=== PATIENT | male | born 1940 | race Caucasian/White ===

== ENCOUNTER 2021-01-13 07:41 | Inpatient (IN) | payer MEDICARE, SELFPAY ==
[2021-01-13] VITALS (10 sets, daily range): BP systolic 124–146; BP diastolic 59–84; PULSE 66–123; RESP 16–20; TEMP 35.5–37.4; O2SAT 94–98; BMI 30.6
--- NOTE | 2021-01-13 | ECG_ITS ---
Test Reason : RHYTHM CHECK Blood Pressure : / mmHG Vent. Rate : 072 BPM Atrial Rate : 072 BPM P-R Int : 138 ms QRS Dur : 084 ms QT Int : 408 ms P-R-T Axes : 001 019 056 degrees QTc Int : 446 ms Normal sinus rhythm Nonspecific T wave abnormality Low voltage QRS Abnormal ECG When compared with ECG of 13-JAN-2021 08:06, Sinus rhythm has replaced Atrial fibrillation Vent. rate has decreased BY 43 BPM Nonspecific T wave abnormality no longer evident in Inferior leads Referred By: Jose Villarreal Electronically Signed By:ROBY SILVA MD
--- NOTE | ~2021-01-13 | XR_ITS ---
EXAMINATION: XR CHEST CLINICAL INFORMATION: Chest pain COMPARISON: Previous chest x-ray January 2011 TECHNIQUE: Frontal view of the chest was obtained. FINDINGS: The cardiac and mediastinal contours are stable. The lung volumes are low. There is crowding of the central vascular markings likely related to low lung volumes. The lungs are otherwise clear. There is no pleural effusion or pneumothorax. Bony structures are unremarkable. XR/XR chest 1V IMPRESSION: Unremarkable examination.
--- NOTE | 2021-01-13 07:57 | ECG_ITS ---
Test Reason : AFIB Blood Pressure : / mmHG Vent. Rate : 115 BPM Atrial Rate : 000 BPM P-R Int : 000 ms QRS Dur : 092 ms QT Int : 344 ms P-R-T Axes : 000 010 012 degrees QTc Int : 475 ms Poor data quality, interpretation may be adversely affected Atrial fibrillation with rapid ventricular response Nonspecific ST abnormality Low voltage QRS Nonspecific T wave abnormality Inferior leads Abnormal ECG When compared with ECG of 15-FEB-2011 11:42, Atrial fibrillation has replaced Sinus rhythm Vent. rate has increased BY 43 BPM Nonspecific T wave abnormality now evident in Inferior leads Nonspecific T wave abnormality now evident in Anterior leads Referred By: Kiko Cheung Electronically Signed By:ROBY SILVA MD
--- NOTE | 2021-01-13 07:59 | ED_ITS ---
HPI - SOB/Dyspnea General Chief Complaint: Dyspnea Stated Complaint: diff breathing Time Seen by Provider: 01/13/21 07:51 Source: patient Mode of arrival: ambulatory Limitations: no limitations History of Present Illness HPI Narrative: This is a very pleasant 80 years old male presented to the emergency department with a chief complaint of shortness of breath on exertion. He states that he has been feeling short of breath for about 2 days especially when exerting inserted. The the patient has history of high blood pressure GERD is here with the daughter. In the emergency room he was found to be in rapid atrial fibrillation MD elicited complaint: shortness of breath Onset (ago): day(s) (2) Timing: constant Severity: moderate Exacerbating factors: exertion Relieving factors: nothing Associated symptoms: denies other symptoms Related Data Home oxygen amount: none Allergies Allergy/AdvReac Type Severity Reaction Status Date / Time No Known Allergies Allergy Unknown Verified 01/13/21 07:42 Review of Systems Review of Systems: On the review of system and there is no other systemic symptoms there is no fever no headache, he does have some diarrhea times 24 ho urs and shortness of breath on exertion Cardiovascular: Cardiovascular: Reports no additional cardiovascular complaints PMFSH Past Medical History Medical History COPD (chronic obstructive pulmonary disease) GERD (gastroesophageal reflux disease) HTN (hypertension) No known health problems Social History Social History Advance Directives: No Physical Exam Vital Signs: Vital Signs: Last Vital Signs Temp 99.4 F 01/13/21 08:33 Pulse 97 01/13/21 08:44 Resp 20 01/13/21 08:44 BP 146/77 H 01/13/21 08:44 Pulse Ox 94 01/13/21 08:44 Body Mass Index 30.6 Const: General: cooperative and comfortable HENMT: Head: Yes normal to inspection Face and sinus: Yes normal facial exam Mouth: Normal oral and palatal mucosa present Neck: Neck: Yes normal visual inspection and Yes full ROM Chest: Chest palpation & inspection: normal inspection of the chest Resp: Effort & Inspection: normal respiratory effort Auscultation: clear to auscultation bilaterally Cardio: Jugular venous distension: no JVD Rate: tachycardic Rhythm: abnormal rhythm GI: Inspection: Yes normal to inspection Palpation (GI): Soft to palpation, not firm and nontender Auscultation: normal bowel sounds Course Reevaluation(s) Reevaluation #1: Patient is feeling much better, he is on a Cardizem drip his rate is down to 100, the case was discussed with the admitting hospitalist Dr. Villarreal he accepts the patient MDM - SOB/Dyspnea Lab Data Result diagrams: 01/13/21 08:08 01/13/21 08:08 Labs: Lab Results 01/13/21 01/13/21 01/13/21 Range/Units 08:08 08:08 08:08 WBC 4.8 (4.8-10.8) X10*3/uL RBC 4.58 L (4.60-5.80) X10*6/uL Hgb 13.0 L (14.0-18.0) g/dl Hct 40.5 L (42.0-52.0) % MCV 88.4 (80.0-98.0) fL MCH 28.4 (27.0-33.0) pg MCHC 32.1 (31.0-36.0) g/dl RDW 12.8 (11.0-16.0) % Plt Count 209 (160-400) X10*3/uL MPV 11.5 (9.4-12.4) fL Immature Gran % (Auto) 0.2 (0.0-0.4) % Neut % (Auto) 67.0 (45-73) % Lymph % (Auto) 18.5 L (20-40) % [place] % (Auto) 12.0 H (2-11) % Eos % (Auto) 1.9 (0-4) % Baso % (Auto) 0.4 (0-2) % Lymph # (Auto) 0.9 L (1.2-4.9) X10*3/uL [place] # (Auto) 0.6 (0.1-1.2) X10*3/uL Eos # (Auto) 0.1 (0.0-0.4) X10*3/uL Baso # (Auto) 0.0 (0.0-0.2) X10*3/uL Abs Immat Gran (auto) 0.01 (0.00-0.03) X10*3/uL Absolute Neuts (auto) 3.2 (2.0-8.3) x10*3/uL Absolute Nucleated RBC 0.000 (0.0-0.012) X10*3/uL Nucleated RBC % (auto) 0.0 (0.0-0.2) /100WBC PT 11.6 (9.9-13.0) SEC INR 1.0 (0.9-1.1) Sodium 137 (135-145) mmol/L Potassium 4.1 (3.3-5.1) mmol/L Chloride 106 (96-108) mmol/L Carbon Dioxide 20 L (22-29) mmol/L Anion Gap 15 (12-20) BUN 18 H (9-16) mg/dL Creatinine 0.86 (0.5-1.4) mg/dL Estim Creat Clear Calc 68.6 Estimated GFR > 60 Random Glucose 151 H (60-115) mg/dL Calcium 8.5 (8.4-10.2) mg/dL Total Bilirubin 0.3 (0.0-1.0) mg/dL AST 22 (5-37) U/L ALT 17 (0-40) U/L Alkaline Phosphatase 65 (39-117) U/L Troponin I High Sens (<3.5-35.0) ng/L B-Natriuretic Peptide (<100) pg/mL Total Protein 6.7 (6.5-8.0) g/dL Albumin 4.0 (3.5-5.0) g/dL 01/13/21 Range/Units 08:08 WBC (4.8-10.8) X10*3/uL RBC (4.60-5.80) X10*6/uL Hgb (14.0-18.0) g/dl Hct (42.0-52.0) % MCV (80.0-98.0) fL MCH (27.0-33.0) pg MCHC (31.0-36.0) g/dl RDW (11.0-16.0) % Plt Count (160-400) X10*3/uL MPV (9.4-12.4) fL Immature Gran % (Auto) (0.0-0.4) % Neut % (Auto) (45-73) % Lymph % (Auto) (20-40) % [place] % (Auto) (2-11) % Eos % (Auto) (0-4) % Baso % (Auto) (0-2) % Lymph # (Auto) (1.2-4.9) X10*3/uL [place] # (Auto) (0.1-1.2) X10*3/uL Eos # (Auto) (0.0-0.4) X10*3/uL Baso # (Auto) (0.0-0.2) X10*3/uL Abs Immat Gran (auto) (0.00-0.03) X10*3/uL Absolute Neuts (auto) (2.0-8.3) x10*3/uL Absolute Nucleated RBC (0.0-0.012) X10*3/uL Nucleated RBC % (auto) (0.0-0.2) /100WBC PT (9.9-13.0) SEC INR (0.9-1.1) Sodium (135-145) mmol/L Potassium (3.3-5.1) mmol/L Chloride (96-108) mmol/L Carbon Dioxide (22-29) mmol/L Anion Gap (12-20) BUN (9-16) mg/dL Creatinine (0.5-1.4) mg/dL Estim Creat Clear Calc Estimated GFR Random Glucose (60-115) mg/dL Calcium (8.4-10.2) mg/dL Total Bilirubin (0.0-1.0) mg/dL AST (5-37) U/L ALT (0-40) U/L Alkaline Phosphatase (39-117) U/L Troponin I High Sens 5.9 (<3.5-35.0) ng/L B-Natriuretic Peptide 190 H (<100) pg/mL Total Protein (6.5-8.0) g/dL Albumin (3.5-5.0) g/dL ECG Data Attestation: I personally reviewed and interpreted this ECG as follows: ECG interpretation date: 01/13/21 ECG interpretation time: 08:08 Attending Attestation Rapid a.fib 115 no ischemia Critical Care Time Critical Care Time Critical Care Time: Yes Total Critical Care Time: 30 Attestation: IV cardizem and titration Discharge Plan Discharge Clinical Impression: Atrial fibrillation with RVR Patient Disposition: Admitted As Inpatient
[2021-01-13] MEDS: dilTIAZem HCL 50 MG/10 ML VIAL 10 MG IVPUSH (08:10)
[2021-01-13 08:17] LABS: MANUAL DIFF FLAG NO
[2021-01-13] MEDS: dilTIAZem HCL 125 MG in 0.9 % Sodium Chloride 100 ML 10 MG IVCONT (08:22)
[2021-01-13 08:23] LABS: Basophils Percent Auto 0.4 % (0-2); Eosinophils Absolute Auto 0.1 X10*3/uL (0.0-0.4); Eosinophils Percent Auto 1.9 % (0-4); Hematocrit 40.5 % (42.0-52.0); Imm Gran Abs Auto 0.01 X10*3/uL (0.00-0.03); Imm Gran Pct Auto 0.2 % (0.0-0.4); Lymphocytes Absolute Auto 0.9 X10*3/uL (1.2-4.9); Lymphocytes Percent Auto 18.5 % (20-40); Mean Corpuscular HGB Conc 32.1 g/dl (31.0-36.0); Mean Corpuscular Hemoglobin 28.4 pg (27.0-33.0); Mean Corpuscular Volume 88.4 fL (80.0-98.0); Mean Platelet Volume 11.5 fL (9.4-12.4); Monocytes Absolute Auto 0.6 X10*3/uL (0.1-1.2); Neutrophils Absolute Auto 3.2 x10*3/uL (2.0-8.3); Platelet Count 209 X10*3/uL (160-400); Red Blood Count 4.58 X10*6/uL (4.60-5.80); Red Cell Distribution Width 12.8 % (11.0-16.0); White Blood Count 4.8 X10*3/uL (4.8-10.8)
[2021-01-13 08:25] LABS: Prothrombin Time 11.6 SEC (9.9-13.0)
[2021-01-13 08:34] LABS: Alanine Aminotransferase 17 U/L (0-40); Alkaline Phosphatase 65 U/L (39-117); Anion Gap 15 (12-20); Aspartate Amino Transferase 22 U/L (5-37); Bilirubin Total 0.3 mg/dL (0.0-1.0); Blood Urea Nitrogen 18 mg/dL (9-16); Calcium 8.5 mg/dL (8.4-10.2); Carbon Dioxide 20 mmol/L (22-29); Chloride 106 mmol/L (96-108); Creatinine Clr Calc Pharmacy 68.6; Estimated Glomerular Filt Rate > 60; Glucose Random 151 mg/dL (60-115); Potassium 4.1 mmol/L (3.3-5.1); Sodium 137 mmol/L (135-145); Total Protein 6.7 g/dL (6.5-8.0)
[2021-01-13 08:38] LABS: B Type Natriuretic Peptide 190 pg/mL (<100); Troponin-I High Sensitivity 5.9 ng/L (<3.5-35.0)
--- NOTE | 2021-01-13 08:45 | PC.NURSE ---
pt c/o sob x2 days mostly with exertion. pt has history of hypertension. In the ed pt noted to be in rapid A-Fib, HR between 120s - 130s. pt denies chest pain, he reports mild sob. no headache/dizziness. pt given Cardizem bolus and started on Cardizem drip. Cardiazem infusion titrated per protocol, HR mid- high 90s, current infusion rate 5mg/hr. as documented. pt tolerating well, resting quietly, no apparent distress noted. pt's daughter at bedside.
--- NOTE | 2021-01-13 10:18 | PM.IMHP ---
History of Present Illness Date of Service: 01/13/21 Chief Complaint: shortness of breath The following history is obtained with the help of the patients grandson who is bedside. all around presser was offered, but patient opted for grandson to translate. This is an 80 Kosovan speaking male , who is relatively healthy (PMH significant for GERD, HTN) who presents to the hospital with complaints of progressive shortness of breath which began 2 days prior to arrival. He reports that 2 days ago, his symptoms began all of a sudden and did not subside and so at the urging of his family he presented to the ED. He denies any chest pain or palpitations. He reports feeling short of breath both at rest and more so with exertion. He denies any orthopnea, PND or LE edema. He denies any prior known history of CAD / CHF / A. Fib. He denies any cough, fevers or chills. Upon arrival to the ED, he was noted to tachycardic with EKG showing A. Fib with RVR. He was given a dose of IV cardizem 10mg without much improvement and subsequently started on IV cardizem drip. He has been given a dose of Eliquis (CHADSVASC score of at least 3 (Age + HTN history). Initially, the patient was reluctant to be admitted (due to his Spouse being sick) but at the urging of his grandson, he has agreed for now. Review of Systems Review of Systems: negative except for HPI [facility] Medical History (Updated 01/13/21 @ 09:56 by Kiko Cheung MD) COPD (chronic obstructive pulmonary disease) GERD (gastroesophageal reflux disease) HTN (hypertension) No known health problems Pertinent family history: Denies any significant family history Surgical History (Updated 01/13/21 @ 10:31 by Jose Villarreal MD) No pertinent past surgical history Social History (Updated 01/13/21 @ 10:32 by Jose Villarreal MD) Patient Tobacco Use Status: Former Tobacco user Use of substances other than those prescribed or required for medical reasons: No Advance Directives: No Meds Allergies Allergy/AdvReac Type Severity Reaction Status Date / Time No Known Allergies Allergy Unknown Verified 01/13/21 07:42 Active Medications: Current Medications Acetaminophen (Acetaminophen 325 Mg Tablet) 650 mg PO Q6H PRN PRN Reason: Pain, Mild (Pain Scale 1-3) Apixaban (Apixaban 5 Mg Tablet) 5 mg PO BID [facility] Diltiazem HCl 125 mg/ Sodium (Chloride) 125 mls @ 0 mls/hr IVCONT .Q0M [facility]; Protocol Last Titration: 01/13/21 08:37 Dose: 5 mg/hr, 5 mls/hr Documented by: Pharmacy Consult (Consult Rx Perform Med Rec) 1 each MISCELLANE ONCE PRN PRN Reason: Consult order Sodium Chloride (0.9 % Sodium Chloride Flush 3 Ml Syringe) 3 ml IVFLUSH QSHIFT [facility] Home Medications Medication Instructions Recorded Confirmed Last Taken Type albuterol sulfate 90 mcg/actuation 1 puff INHALATION QID PRN 01/13/21 01/13/21 Unknown History aerosol inhaler losartan 50 mg tablet 1 tab PO DAILY 01/13/21 01/13/21 Unknown History omeprazole 20 mg capsule,delayed 1 cap PO DAILY 01/13/21 01/13/21 Unknown History release Physical Exam Vital Signs and Narrative: Vital Signs: Last Vital Signs Temp 99.4 F 01/13/21 08:33 Pulse 97 01/13/21 08:44 Resp 20 01/13/21 08:44 BP 146/77 H 01/13/21 08:44 Pulse Ox 94 01/13/21 08:44 Body Mass Index 30.6 Const: Other: Constitutional - Awake and Alert, No apparent distress Eyes - PERRLA, EOMI Cardiovascular - IRR, no b/l edema Respiratory - Normal lung expansion, Normal respiratory effort, No respiratory distress, Dimished bilaterally Gastrointestinal - NT / ND; +BS; No rebound or guarding - No CVA tenderness Extremities - no calf tenderness bilaterally, no swelling Musculoskeletal - Normal inspection, normal ROM Skin - Warm/Dry Neurological - Alert & oriented x3, No focal deficit Psychological - Appropriate affect Results Labs CBC and Chem 7: 01/13/21 08:08 01/13/21 08:08 Labs: Laboratory Results - last 24 hr 01/13/21 01/13/21 01/13/21 08:08 08:08 08:08 MCV 88.4 MCH 28.4 MCHC 32.1 RDW 12.8 Plt Count 209 MPV 11.5 Immature Gran % (Auto) 0.2 Neut % (Auto) 67.0 Lymph % (Auto) 18.5 L [place] % (Auto) 12.0 H Eos % (Auto) 1.9 Baso % (Auto) 0.4 Lymph # (Auto) 0.9 L [place] # (Auto) 0.6 Eos # (Auto) 0.1 Baso # (Auto) 0.0 Abs Immat Gran (auto) 0.01 Absolute Neuts (auto) 3.2 Absolute Nucleated RBC 0.000 Nucleated RBC % (auto) 0.0 PT 11.6 INR 1.0 Anion Gap 15 Estim Creat Clear Calc 68.6 Estimated GFR > 60 Random Glucose 151 H Calcium 8.5 Total Bilirubin 0.3 AST 22 ALT 17 Alkaline Phosphatase 65 Troponin I High Sens B-Natriuretic Peptide Total Protein 6.7 Albumin 4.0 01/13/21 08:08 MCV MCH MCHC RDW Plt Count MPV Immature Gran % (Auto) Neut % (Auto) Lymph % (Auto) [place] % (Auto) Eos % (Auto) Baso % (Auto) Lymph # (Auto) [place] # (Auto) Eos # (Auto) Baso # (Auto) Abs Immat Gran (auto) Absolute Neuts (auto) Absolute Nucleated RBC Nucleated RBC % (auto) PT INR Anion Gap Estim Creat Clear Calc Estimated GFR Random Glucose Calcium Total Bilirubin AST ALT Alkaline Phosphatase Troponin I High Sens 5.9 B-Natriuretic Peptide 190 H Total Protein Albumin ECG Attestation: I personally reviewed and interpreted this ECG as follows: (A. Fib with RVR @ 115) ECG interpretation date: 01/13/21 ECG interpretation time: 10:33 Imaging Radiologist's Impressions: Impressions Chest X-Ray 01/13/21 07:57 IMPRESSION: Unremarkable examination. Assessment and Plan (1) Atrial fibrillation with RVR: Status: Acute This is an 80 yo M with a PMH of GERD, HTN who presents to the hospital with complaints of shortness of breath of 2 days duration. He is found to be in A. Fib with RVR requiring IV cardizem drip. He will be admitted for further work up. 1. A. Fib with RVR, new-onset HR in the 100-110s on cardizem drip; will continue for now. Target rate below 90s and start oral rate control drugs at that time. Eliquis 5mg BID -- Chadsvasc score of 3; denies any history of GI bleeding 2d echo and cardiology consult 2. Shortness of breath likely due to above clinically not in CHF 3. HTN med rec pending, but will hold baseline meds for the time being while on cardizem gtt 4. GERD PPI Full Code DVT pptx, Gwen Patel (daughter) is endorses at HCP Quality Stroke Does the patient have a stroke diagnosis?: No VTE Prior VTE?: No VTE Risk Level:: Medical - moderate - high VTE Device Contraindication: Treatment Not Indicated VTE Drug Contraindication: N/A - Med Ordered
[2021-01-13] MEDS: Apixaban 5 MG TABLET PO ×2 (10:51→20:32)
[2021-01-13 11:45] LABS: COVID-19 Test Positive (Negative)
--- NOTE | 2021-01-13 12:00 | PC.NURSE ---
pt resulted positive for SARANYA, Dr. Cheung and Dr. Villarreal aware. pt awaiting bed assignment. pt and daughter aware of positive result.
--- NOTE | 2021-01-13 13:21 | PC.NURSE ---
called to give report, awaiting receiving nurse to call back. pt alert and oriented, denies headache/dizziness. reports slight sob. pt and daughter aware of room assignment.
--- NOTE | 2021-01-13 14:21 | PHA.MEDREC ---
Pharmacy Consult ? Medication Reconciliation Pharmacy has completed the medication reconciliation. Spoke with family member and pt.
[2021-01-13] MEDS: 0.9 % Sodium Chloride Flush 3 ML SYRINGE IVFLUSH ×2 (16:06→20:32)
[2021-01-13] MEDS: Metoprolol Tartrate 25 MG TABLET PO (20:31)
[2021-01-14 04:00] VITALS: BP 134/62; PULSE 67; RESP 16; TEMP 37.4; O2SAT 91
[2021-01-14 07:32] VITALS: BP 140/77; PULSE 75; RESP 20; TEMP 36.3; O2SAT 93
--- NOTE | 2021-01-14 08:27 | MHC.CM.PN ---
Patient is Covid (+);CM spoke with Daughter/HCP/Leighann @ [phone].Patient lives in an elderly apartment with his and he had no services nor DME [employer].Patient's goal is to return home, no services and CM has initiated and will follow for dc planning.PCP is out of [facility] in [place].
[2021-01-14 09:54] VITALS: BP 140/77; PULSE 75
[2021-01-14] MEDS: Apixaban 5 MG TABLET PO (09:54)
[2021-01-14] MEDS: 0.9 % Sodium Chloride Flush 3 ML SYRINGE IVFLUSH (09:54)
[2021-01-14] MEDS: Metoprolol Tartrate 25 MG TABLET PO (09:54)
[2021-01-14] MEDS: Omeprazole 20 MG CAPSULE.DR PO (09:54)
[2021-01-14 11:03] VITALS: BP 126/56; PULSE 66; RESP 20; TEMP 36.5; O2SAT 96
--- NOTE | 2021-01-14 11:07 | P.PNIM_ITS ---
Subjective Subjective Date of Service: 01/14/21 Interval History: seen and examined this Am with chip unloader services patient reports no complaints and is looking forward to discharge he denies any cough or shortness of breath he denies any palpitations or chest pain he denies any fevers he has been ambulated in the room by the RN team and he denied any sob. post- ambulation O2 >95% Review of Systems negative except interval history Physical Exam Vital Signs: Vital Signs: Last Vital Signs Temp 97.7 F 01/14/21 11:03 Pulse 66 01/14/21 11:03 Resp 20 01/14/21 11:03 BP 126/56 L 01/14/21 11:03 Pulse Ox 96 01/14/21 11:03 Body Mass Index 30.6 Const: Other: General - no acute distress, appears comfortable Cardiovascular - regular rate and rhythm, S1-S2 Lungs - normal respiratory effort, clear to auscultation bilaterally, no wheezing Abdomen - soft, nontender, no rebound or guarding Extremities - no edema bilaterally Neuro - awake and alert, no focal deficits Objective Data Active Medications Acetaminophen (Acetaminophen 325 Mg Tablet) 650 mg PO Q6H PRN PRN Reason: Pain, Mild (Pain Scale 1-3) Albuterol Sulfate (Albuterol Sulfate 90 Mcg 8 Gm Inhaler) 1 puff INHALE QID PRN PRN Reason: wheezing Apixaban (Apixaban 5 Mg Tablet) 5 mg PO BID [facility] Last Admin: 01/14/21 09:54 Dose: 5 mg Documented by: NICHOLE Metoprolol Tartrate (Metoprolol Tartrate 25 Mg Tablet) 25 mg PO BID [facility]; Protocol Last Admin: 01/14/21 09:54 Dose: 25 mg Documented by: NICHOLE Omeprazole (Omeprazole 20 Mg Capsule.) 20 mg PO DAILY [facility] Last Admin: 01/14/21 09:54 Dose: 20 mg Documented by: NICHOLE Pharmacy Consult (Consult Rx Perform Med Rec) 1 each MISCELLANE ONCE PRN PRN Reason: Consult order Sodium Chloride (0.9 % Sodium Chloride Flush 3 Ml Syringe) 3 ml IVFLUSH QSHIFT [facility] Last Admin: 01/14/21 09:54 Dose: 3 ml Documented by: NICHOLE Labs CBC & Chem 7: 01/13/21 08:08 11/15/21 08:08 Labs: Laboratory Results - last 24 hr 01/13/21 01/13/21 11:02 11:20 SARS-CoV-2 (PCR) Cancelled COVID-19 (ANAHY) Positive A COVID-19 Clin Com See Note Assessment and Plan (1) Atrial fibrillation with RVR: Status: Acute Assessment and Plan: This is an? 80 yo M with a PMH of GERD, HTN who presents to the hospital with complaints of shortness of breath of 2 days duration. He is found to be in A. Fib with RVR requiring IV cardizem drip. He will be admitted for further work up. 1. PAF with RVR In sinus > 12 hours Continue metoprolol and eliquis await cardiology input 2. COVID+ asymptomatic no hypoxia, no findings on cxr 3. HTN on losartan at home, will hold and change to metoprolol for a. fib 4. GERD PPI DNI DVT pptx Eliquis Updated daughter Leighann Possible d/c home later this afternoon pending cardiology evaluation Quality Stroke Does the patient have a stroke diagnosis?: No VTE Prior VTE?: No VTE Risk Level:: Medical - moderate - high VTE Device Contraindication: Treatment Not Indicated VTE Drug Contraindication: N/A - Med Ordered
[2021-01-14] MEDS: Albuterol Sulfate 90 MCG 8 GM INHALER 1 PUFF INHALE (11:36)
--- NOTE | 2021-01-14 14:19 | P.CONCA_ITS ---
History of Present Illness History of Present Illness Date of Service: 01/14/21 Requesting physician: Jose Villarreal Chief complaint: Shortness of Breath, PAF Narrative: 80-year-old gentleman with COVID infection and new onset atrial fibrillation. It appears he received the vaccine and came in after that because of shortness of breath. He had positive COVID-19 testing. He was also noticed to have tachycardia and ECG showed atrial fibrillation. This was self-limiting and has improved since then. Denying any palpitations. Denying any chest discomfort shortness of breath. Clinically stable and is feeling much better. He was started on Eliquis by the medicine team. [facility] Past Medical History Medical History (Updated 01/13/21 @ 09:56 by Kiko Cheung MD) COPD (chronic obstructive pulmonary disease) GERD (gastroesophageal reflux disease) HTN (hypertension) No known health problems Surgical History Surgical History (Updated 01/13/21 @ 10:31 by Jose Villarreal MD) No pertinent past surgical history Social History Social History (Updated 01/13/21 @ 10:32 by Jose Villarreal MD) Household Members: Spouse Housing: Apartment Do you presently have visiting nurse or other home services: No Patient Tobacco Use Status: Former Tobacco user service: No Current occupational status: retired [employer] Allergies Allergy/AdvReac Type Severity Reaction Status Date / Time No Known Allergies Allergy Unknown Verified 01/13/21 07:42 Active Medications: Current Medications Acetaminophen (Acetaminophen 325 Mg Tablet) 650 mg PO Q6H PRN PRN Reason: Pain, Mild (Pain Scale 1-3) Albuterol Sulfate (Albuterol Sulfate 90 Mcg 8 Gm Inhaler) 1 puff INHALE QID PRN PRN Reason: wheezing Last Admin: 01/14/21 11:36 Dose: 1 puff Documented by: Apixaban (Apixaban 5 Mg Tablet) 5 mg PO BID [facility] Last Admin: 01/14/21 09:54 Dose: 5 mg Documented by: Metoprolol Tartrate (Metoprolol Tartrate 25 Mg Tablet) 25 mg PO BID [facility]; Protocol Last Admin: 01/14/21 09:54 Dose: 25 mg Documented by: Omeprazole (Omeprazole 20 Mg Capsule.) 20 mg PO DAILY [facility] Last Admin: 01/14/21 09:54 Dose: 20 mg Documented by: Pharmacy Consult (Consult Rx Perform Med Rec) 1 each MISCELLANE ONCE PRN PRN Reason: Consult order Sodium Chloride (0.9 % Sodium Chloride Flush 3 Ml Syringe) 3 ml IVFLUSH QSHIFT [facility] Last Admin: 01/14/21 09:54 Dose: 3 ml Documented by: Home Medications Medication Instructions Recorded Confirmed Last Taken Type acetaminophen 650 mg 2 tab PO BID PRN 01/13/21 01/13/21 Unknown History tablet,extended release ([facility] Arthritis Pain) albuterol sulfate 90 mcg/actuation 1 puff INHALATION QID PRN 01/13/21 01/13/21 Unknown History aerosol inhaler fluticasone 500 mcg-salmeterol 50 1 puff INHALATION BEDTIME 01/13/21 01/13/21 Unknown History mcg/dose blistr powdr for inhalation ([facility] Inhub) omeprazole 20 mg capsule,delayed 20 mg PO DAILY 01/13/21 01/13/21 Unknown History release Physical Exam Vital Signs: Vital Signs: Last Vital Signs Temp 97.7 F 01/14/21 11:03 Pulse 66 01/14/21 11:03 Resp 20 01/14/21 11:03 BP 126/56 L 01/14/21 11:03 Pulse Ox 96 01/14/21 11:03 Body Mass Index 30.6 GENERAL APPEARANCE: in no acute distress, pleasant. NECK: no carotid bruit, no jugular venous distention. SKIN: no suspicious lesions, warm and dry. HEART: no murmurs, regular rate and rhythm. LUNGS: clear to auscultation bilaterally. ABDOMEN: soft, nontender. EXTREMITIES: no edema. PERIPHERAL PULSES: equal. NEUROLOGIC: No gross deficits, AAO X 3 Objective Labs and Meds Result diagrams: 01/13/21 08:08 01/13/21 08:08 Assessment and Plan (1) Atrial fibrillation with RVR: Status: Acute 80-year-old gentleman who is presenting for COVID-19 infection and paroxysmal atrial fibrillation. He is back in sinus rhythm. Clinically stable and not in heart failure. Agree with anticoagulation. Agree with beta-tadeo. He can see us in followup as outpatient. Thank you for allowing me to participate in the care of your patient. Please feel free to contact me if you have any questions. Procedures Date of Service Date of Service: 01/14/21
--- NOTE | 2021-01-14 14:35 | PM.DS ---
DS: Providers Provider Date of Service: 01/14/21 Date of admission: 01/13/21 10:08 Primary care physician: Unknown Physician Consults: 01/13/21 10:16 Consult to Cardiology Routine Consulting Provider: Corby Mina Reason for consultation: new onset a. fib with rvr DS: Diagnosis Discharge Diagnosis (1) Atrial fibrillation with RVR: Status: Acute DS: Summary Hospital Course Hospital Course: HPI: The following history is obtained with the help of the patients grandson who is bedside. lap polisher was offered, but patient opted for grandson to translate. This is an 80 Georgian speaking male? , who is relatively healthy (PMH significant for GERD, HTN) who presents to the hospital with complaints of progressive shortness of breath which began 2 days prior to arrival. He reports that 2 days ago, his symptoms began all of a sudden and did not subside and so at the urging of his family he presented to the ED. He denies any chest pain or palpitations. He reports feeling short of breath both at rest and more so with exertion. He denies any orthopnea, PND or LE edema. He denies any prior known history of CAD / CHF / A. Fib. He denies any cough, fevers or chills. Upon arrival to the ED, he was noted to tachycardic with EKG showing A. Fib with RVR. He was given a dose of IV cardizem 10mg without much improvement and subsequently started on IV cardizem drip. He has been given a dose of Eliquis (CHADSVASC score of at least 3 (Age + HTN history). Initially, the patient was reluctant to be admitted (due to his Spouse being sick) but at the urging of his grandson, he has agreed for now. Addendum: Patient's COVID test returned positive. Patient seen again in the ED. His daughter Leighann (HCP) is bedside. She reports that he has been vaccinated and received his booster about 1 weeks ago. No sick contacts in the last week, but reports that the patients grand kids did have COVID about 1 month ago. Patient and patient daughter request that she be allowed to stay in his room once he is upstairs. I have informed them Hospital policy does not allow visitors for COVID positive patient. Initially, the patient wanted to sign out against medical advice. But after being convinced by the daughter he has decided to stay. He has been informed on the risks of leaving against medical advice, which include but are not limited to worsening of his A. Fib RVR, cardiac arrest / COVID, respiratory arrest and possibly even . Furthermore, the daughter reports that she does not want her father intubated. Changed code status to DNI. In regards to his COVID -- the patient does not have any CXR findings of pneumonia nor is he hypoxic. Will hold off on starting decadron. If his saturations worsen, will start decadron and consult infectious disease. Hospital Course: Patient was started on IV cardizem drip and Eliquis 5mg BID. He converted to NSR and was subsequently transitioned to oral metorpolol 25mg BID (his Losartan will be discontinued for the time being). He was evaluated by cardiology who was in agreement with the current treatment plans. He was observed on the cardiac rehabilitation program director overnight and remained in NSR at the time of discharge. He will have further outpatient f/u with the cardiology clinic. In regards to his COVID test being positive -- this was in incedental finding. He did not have any symptoms such as fevers, cough, hypoxia or CXR findings suggestive of COVID. He was ambulated during his stay and did have any any hypoxia during and post ambulation. He (along with his daughter, Leighann who is his healthcare proxy) has been informed on self-isolation as well as alarm symptoms for COVID. Leighann reports they have a pulse ox at home and they have been instructed to return to the ED if he has persistent O2 sats below 90 or any respiratory decompensation. Time Spent with Patient Time attestation: Total time spent providing and/or coordinating discharge services: Discharge coordination time: Greater than 30 minutes Quality: Stroke Does the patient have a stroke diagnosis?: No Physical Exam Vital Signs: Vital Signs: Last Vital Signs Temp 97.7 F 01/14/21 11:03 Pulse 66 01/14/21 11:03 Resp 20 01/14/21 11:03 BP 126/56 L 01/14/21 11:03 Pulse Ox 96 01/14/21 11:03 Body Mass Index 30.6 Const: Other: General - no acute distress, appears comfortable Cardiovascular - regular rate and rhythm, S1-S2 Lungs - normal respiratory effort, clear to auscultation bilaterally, no wheezing Abdomen - soft, nontender, no rebound or guarding Extremities - no edema bilaterally Neuro - awake and alert, no focal deficits Discharge Plan Discharge Patient Disposition: Home, Self-Care Discharge Diagnosis: PAF COVID 19 Referrals: Physician,Unknown J [Primary Care Provider] - 1 Week Discharge Medications: New Eliquis 5 mg tablet 5 mg PO BID Qty: 60 RF: 0 metoprolol tartrate 25 mg tablet 25 mg PO BID Qty: 60 RF: 0 Continued omeprazole 20 mg capsule,delayed release(DR/EC) 20 mg PO DAILY RF: 0 albuterol sulfate 90 mcg/actuation HFA aerosol inhaler 1 puff inhalation QID PRN (Reason: wheezing) RF: 0 acetaminophen [Mapap Arthritis Pain] 650 mg tablet extended release 2 tab PO BID PRN (Reason: fever) RF: 0 fluticasone propion-salmeterol [Wixela Inhub] 500-50 mcg/dose blister with device 1 puff inhalation BEDTIME RF: 0 Discontinued losartan 50 mg tablet 50 mg PO DAILY RF: 0 Discharge Orders: Discharge Order (Routine); Ordered 01/14/21 Ordered By: Jose Villarreal Diet: advance to usual diet Activity on Discharge: As tolerated Stand Alone Forms: Patient Portal Discharge page Care Plan Goals: To stay healthy and out of the hospital. Health Concerns: PAF COVID+ Plan of Treatment: PAF - Take Eliquis and Metoprolol. Follow up with the cardiology clinic (Dr. Mina). Do not take Losartan for the time being. COVID+ -- If you have trouble breathing, fevers/chills, poor appetite or any other symptoms that concern you, please return to the emergency room. Maintain self isolation per CDC guidelines. Assessment: 80 yo M admitted for new onset A. Fib RVR. Converted to Sinus on Cardizem drip. Started on Metoprolol + Eliquis. Found to have COVID+ incidentally. To f/u with cardiology and maintain self isolation per CDC guidelines. Patient Instructions: COVID-19 (Coronavirus Disease 2019) (DC), COVID-19 (Coronavirus Disease 2019) (GEN)
--- NOTE | 2021-01-14 14:35 | MHC.CM.PN ---
Patient has been medically cleared for dc to home today, no services.IMM addressed this morning.
== END 2021-01-14 15:45 | disposition home or self-care (01) | DRG 308 ==
LOC: HO.ED 09:56 → HO.EDOVER 10:26 → HO.S3 12:36 → HO.IMC 13:14
PROVIDERS: Admitting Provider Family Medicine; Emergency Provider Emergency Medicine; Visit Provider Family Medicine
DX: I48.91 Unspecified atrial fibrillation (principal); U07.1 COVID-19; K21.9 Gastro-esophageal reflux disease without esophagitis; I48.0 Paroxysmal atrial fibrillation; I10 Essential (primary) hypertension; Z87.891 Personal history of nicotine dependence; Z79.01 Long term (current) use of anticoagulants; Z79.51 Long term (current) use of inhaled steroids; Z79.899 Other long term (current) drug therapy
CPT/HCPCS: 36415; 71045; 80053; 83880; 84484; 85025; 85610; 87635; 93005; 96365; 96366; 96375; 99284; 99285

== ENCOUNTER 2021-01-17 07:55 | Emergency (ER) | payer MEDICARE, SELFPAY ==
--- NOTE | ~2021-01-17 | XR_ITS ---
EXAMINATION: XR CHEST CLINICAL INFORMATION: Palpitations COMPARISON: Chest radiographs 01/13/2021, 02/15/2011 TECHNIQUE: Portable upright AP view of the chest was obtained. FINDINGS: The cardiopericardial silhouette is enlarged, similar to prior exam. There is even distribution vascularity with mild coarsening. Probable trace left effusion. There is no lobar or segmental airspace consolidation. The hilar and mediastinal contours and bony structures are unremarkable. XR/XR chest 1V IMPRESSION: Enlarged cardiopericardial silhouette with probable mild vascular congestion and trace left effusion.
--- NOTE | 2021-01-17 08:18 | ED.ARRPALP ---
HPI - Arrhythmia/Palpitations General Chief Complaint: Arrhythmia/Palpitations Stated Complaint: rapid heartbeat Time Seen by Provider: 01/17/21 08:02 Source: patient, family, old records reviewed and sign language interpreter Mode of arrival: ambulatory Limitations: no limitations History of Present Illness HPI narrative: admitted 01/13-01/04 new onset afib DC with eliquis 5mg PO BID, metoprolol 25mg PO BID - + COVID but vaccinated and did receive his booster this month MD complaint: rapid heart beat and heart racing Onset (ago): hour(s) (few) Duration: intermittent Severity: mild Context: occurred during rest Arrhythmia history: atrial fibrillation Associated symptoms: denies other symptoms Treatments prior to arrival: other (only took his eliquis this AM) Related Data Home Medications Medication Instructions Recorded Confirmed acetaminophen 650 mg 2 tab PO BID PRN 01/13/21 01/13/21 tablet,extended release (Mapap Arthritis Pain) albuterol sulfate 90 mcg/actuation 1 puff INHALATION QID PRN 01/13/21 01/13/21 aerosol inhaler fluticasone 500 mcg-salmeterol 50 1 puff INHALATION BEDTIME 01/13/21 01/13/21 mcg/dose blistr powdr for inhalation (Wixela Inhub) omeprazole 20 mg capsule,delayed 20 mg PO DAILY 01/13/21 01/13/21 release Previous Rx's Medication Instructions Recorded apixaban 5 mg tablet (Eliquis) 5 mg PO BID #60 tab 01/14/21 metoprolol tartrate 25 mg tablet 25 mg PO BID #60 tab 01/14/21 Allergies Allergy/AdvReac Type Severity Reaction Status Date / Time No Known Allergies Allergy Unknown Verified 01/13/21 07:42 Review of Systems Review of Systems: Constitutional : No Fever, No Chills ENT/Mouth : No sore throat, No Rhinorrhea, No Swallowing Difficulty Eyes: No Eye Pain, No Swelling, No Redness Cardiovascular : No Chest Pain, no SOB, No Orthopnea, no Edema, pos palpitations Respiratory : No Cough, No Sputum, No Wheezing, no dyspnea Gastrointestinal : No Nausea, No Vomiting, No Diarrhea, No abdominal Pain, No Hematochezia, No Melena Genitourinary : No Dysuria, No Urinary Frequency, No Hematuria Musculoskeletal : No joint pain, No Myalgias Skin : No Skin Lesions, No rash Neuro : No Weakness, No Numbness, No Dizziness, No Headache Psych : No Anxiety/Panic, No Depression Heme/Lymph: No Bruising, No Lymphadenopathy Endocrine : No Polyuria, No Polydipsia All other systems reviewed and are negative [facility] Past Medical History Attestation statement: The following information was validated with the patient. Medical History Atrial fibrillation with RVR COPD (chronic obstructive pulmonary disease) GERD (gastroesophageal reflux disease) HTN (hypertension) No known health problems Surgical History (Updated 01/13/21 @ 10:31 by Jose Villarreal MD) No pertinent past surgical history Social History Social History Household Members: Spouse Housing: Apartment Do you presently have visiting nurse or other home services: No Patient Tobacco Use Status: Former Tobacco user Advance Directives: No service: No Current occupational status: retired Physical Exam Vital Signs: Vital Signs: Last Vital Signs Temp 98.5 F 01/17/21 08:24 Pulse 82 01/17/21 09:28 Resp 18 01/17/21 08:24 BP 115/69 01/17/21 09:28 Pulse Ox 94 01/17/21 08:24 Body Mass Index 29.0 Appearance: Alert. Oriented X3. No acute distress. Eyes: Pupils equal, round and reactive to light. ENT: Pharynx normal. Neck: Normal inspection. Neck supple. CVS: irregular heart rate and rhythm. Pulses normal. Respiratory: No respiratory distress. Breath sounds normal. Abdomen: Soft and non-tender. Skin: Skin warm and dry. Normal skin color. Normal skin turgor. Extremities: No lower extremity edema. No calf ttp Neuro: Oriented X 3. No motor deficit. No sensory deficit. Course Course Course Narrative: no complaints of dyspnea, baseline cardiomegaly has no hypoxia, trace effusion stable for DC MDM - Arrhythmia/Palpitations MDM Narrative Medical decision making narrative: 80 yo male with recent dx of afib and COVID (though reports being asymptomatic) he is home alone now due to his being hospitalized but his daughter is involved. He come in with feeling a fast heartbeat today - he has no CP/SOB. He did not take his metoprolol this AM only eliquis. I did talk to his daughter about buying a pill box as he is on high risk medications now she plans to go to the pharmacy. He is asymptomatic his HR is 90 to low 100s - EKG, CXR and PO metoprolol ordered. ECG Data Attestation: I personally reviewed and interpreted this ECG as follows: ECG interpretation date: 01/17/21 ECG interpretation time: 08:45 Interpretation: Rate: 100 Rhythm: afib [place]: normal Normal QRS complex. ST T wave : inverted t waves V1-V3 (old) no LE qTC: normal prior studies: no sig change from prior The study has been interpreted contemporaneously by me. . Discharge Plan Discharge Clinical Impression: Atrial fibrillation Qualifiers: Atrial fibrillation type: persistent (not longstanding) Qualified Code(s): I48.19 - Other persistent atrial fibrillation Patient Disposition: Home, Self-Care Instructions: Bessiefib (Atrial Fibrillation) (ED) Additional Instructions: return to ED for any worsening symptoms or concerns PLEASE BUY A PILL BOX SO THERE IS NO ISSUE WITH MEDICATIONS HE WAS GIVEN HIS DOSE OF METOPROLOL FOR THIS MORNING ALREADY Prescriptions: No Action omeprazole 20 mg capsule,delayed release(DR/EC) 20 mg PO DAILY RF: 0 albuterol sulfate 90 mcg/actuation HFA aerosol inhaler 1 puff inhalation QID PRN (Reason: wheezing) RF: 0 acetaminophen [Mapap Arthritis Pain] 650 mg tablet extended release 2 tab PO BID PRN (Reason: fever) RF: 0 fluticasone propion-salmeterol [Wixela Inhub] 500-50 mcg/dose blister with device 1 puff inhalation BEDTIME RF: 0 Eliquis 5 mg tablet 5 mg PO BID Qty: 60 RF: 0 metoprolol tartrate 25 mg tablet 25 mg PO BID Qty: 60 RF: 0 Referrals: Physician,Unknown J [Primary Care Provider] - 5 days (PRIMARY CARE DOCTOR) Print Language: Indonesian
[2021-01-17 08:24] VITALS: BP 120/74; PULSE 110; RESP 18; TEMP 36.9; O2SAT 94; BMI 29.0
--- NOTE | 2021-01-17 08:30 | ECG_ITS ---
Test Reason : palpitations Blood Pressure : / mmHG Vent. Rate : 100 BPM Atrial Rate : 000 BPM P-R Int : 000 ms QRS Dur : 086 ms QT Int : 372 ms P-R-T Axes : 000 -04 -28 degrees QTc Int : 479 ms Atrial fibrillation RSR' or QR pattern in V1 suggests right ventricular conduction delay Nonspecific T wave abnormality Abnormal ECG When compared with ECG of 13-JAN-2021 16:41, Atrial fibrillation has replaced Sinus rhythm T wave amplitude has decreased in Lateral leads Heart rate has increased Referred By: Roula Vail Electronically Signed By:ROBY SILVA MD
[2021-01-17 09:28] VITALS: BP 115/69; PULSE 82
[2021-01-17] MEDS: Metoprolol Tartrate 25 MG TABLET PO (09:28)
== END 2021-01-17 11:21 | disposition home or self-care (01) ==
PROVIDERS: Emergency Provider Emergency Medicine
DX: I48.19 Other persistent atrial fibrillation (principal); R00.2 Palpitations; I48.0 Paroxysmal atrial fibrillation; I10 Essential (primary) hypertension; Z79.01 Long term (current) use of anticoagulants
CPT/HCPCS: 71045; 93005; 99283

== ENCOUNTER → 2021-01-30 09:13 | Outpatient (BNVA) | payer MEDICARE, SELFPAY | PROVIDERS: Visit Provider Internal Medicine Cardiovascular Disease | DX: I48.0 Paroxysmal atrial fibrillation (principal); I10 Essential (primary) hypertension | CPT/HCPCS: 99212 ==

== ENCOUNTER → 2021-02-11 10:39 | Outpatient (REF) | payer MEDICARE, SELFPAY ==
--- NOTE | 2021-02-11 10:46 | HM_ITS ---
Total monitoring time 2 days in 23 hours. Underlying rhythm is sinus. Average heart rate of 75/Min. About 40% of the time, rhythm was atrial fibrillation. Longest episode was 1 day and 5 hours. Fastest atrial fibrillation was 143/Min. No clear pauses or AV blocks. Occasional supraventricular ectopy but low burden at less than 1%. Occasional PVCs, 2 morphologies, 12 couplets, single 3 beat run, minimal burden. No patient events. MTDD
== END ==
LOC: HO.CARD 10:39
PROVIDERS: Visit Provider Internal Medicine Cardiovascular Disease
DX: I48.91 Unspecified atrial fibrillation (principal)
CPT/HCPCS: 93242

== ENCOUNTER → 2021-04-08 12:56 | Outpatient (BNVA) | payer MEDICARE, SELFPAY | PROVIDERS: Visit Provider Nurse Practitioner Family | DX: I48.0 Paroxysmal atrial fibrillation (principal); I10 Essential (primary) hypertension; Z79.01 Long term (current) use of anticoagulants | CPT/HCPCS: 99212 ==

== ENCOUNTER → 2021-06-02 08:46 | Outpatient (REF) | payer OTHER, SELFPAY ==
--- NOTE | 2021-06-02 08:50 | CA_ITS ---
Transthoracic Echocardiogram Patient (Last, First, Middle): Miguelito Edmondson, Gender: Male Date of : 1940 Age: 80 Procedure Date: 06/02/2021 Procedure Type: Transthoracic Echocardiogram Location: OP Height: 170.18 cm Weight: 89.81 kg BSA: 2.01 m2 Heart Rate: bpm BP: 128 / 80 mmHg Mill Operator Helper: LUCIANA Jordan MD: Funmi Hodge COAL WASHER TENDER-Vincenzo Crystalizer: Arnoldo Hung MD Symptoms: I48.0 - Paroxysmal atrial fibrillation Study Quality: Fair ECG Rhythm: Atrial Fibrillation Conclusions: - 1. Normal LV systolic function 2. Mild aortic regurgitation 3. Normal RV systolic pressure 4. No pericardial effusion Findings Left Ventricle Normal left ventricular size, thickness, and systolic function. The visually estimated ejection fraction is between 55-60%. Diastolic function is indeterminate on the basis of available data. Right Ventricle Normal right ventricular cavity size and systolic function. Atria The left atrium is likely dilated. There is no evidence of interatrial shunt. The right atrium is normal in size. Aortic Valve The aortic valve was not well visualized. There is no aortic valve stenosis. There is mild aortic valve regurgitation. Mitral Valve Normal mitral valve structure and function. There is trace mitral valve regurgitation. There is no mitral valve stenosis. Pulmonic Valve The pulmonic valve was not well visualized. Tricuspid Valve Likely normal tricuspid valve structure and function. There is mild tricuspid valve regurgitation. The right ventricular systolic pressure is normal. The right ventricular systolic pressure is 30 mmHg. Normal right atrial pressure. There is no evidence of pulmonary hypertension. Great Vessels All visible segments of the aorta are normal in size. The pulmonary artery was not well visualized. Venous The inferior vena cava is normal in size and collapses greater than 50% with inspiration. Pericardium/Pleural There is no evidence of pericardial effusion. Prior Study Comparison No prior study available for comparison. Measurements 2D Linear Measurements IVSd: 1.11 0.6-0.9/0.6-1.0 cm LVIDd: 4.34 3.9-5.3/4.2-5.9 cm LVIDd Index: 2.16 2.4-3.2/2.2-3.1 cm/m2 LVIDs: 2.39 2.0-3.6 cm LVPWd: 1.09 0.7-1.1 cm LA Diam: 4.30 2.7-3.8/3.0-4.0 cm LAIDs Index: 2.14 1.5-2.3 cm/m2 LV Mass: 205.90 67-162/88-224 g LV Mass Index: 102.44 43-95/49-115 g/m2 LVOT Diam: 2.20 3.0+(-)1.3 cm 2D Systolic Function EF 4C: 56.30 >55% EF 2C: 64.40 >55% EF BiP: 59.70 >55% Aortic Valve AoV Pk Ronan: 1.29 AoV Mn Ronan: 0.87 AoV VTI: 0.22 AoV Pk Grad: 7.00 Aov Mn Grad: 3.00 HAYDEE Cont.VTI: 3.52 LVOT LVOT Pk Ronan: 0.99 LVOT Mn Ronan: 0.65 LVOT VTI: 0.21 LVOT Pk Grad: 4.00 LVOT Mn Grad: 2.00 LVOT Diam: 2.20 LVOT Area: 3.80 Right Ventricle TAPSE (mm): 19.40 TVS' Ronan: 14.00 Tricuspid Valve TR Pk Ronan: 2.62 TR Pk Grad: 27.00 RA Press: 3.00 RVSP: 30.00 Great Vessels Aorta Sinus of Valsalva: 3.14 2.0-3.[address] [place]: 2.57 1.7-3.4 cm Ao Asc: 3.50 2.1-3.4 cm Ao Arch: 3.10 Updated in Other Vendor System with Status of Final Arnoldo Hung MD electronically signed on 06/02/2021 6:40:17 PM with status of Final
--- NOTE | 2021-06-02 08:53 | HM_ITS ---
Conclusion: 1. Patient was monitored for total period of 2 days and 22 hours 2. Predominant rhythm is sinus rhythm 66% of the time, average heart rate of 77 beats per minute in sinus rhythm 3. Intermittent atrial fibrillation, 33% of the time with longest episode lasting 23 hours and 13 minutes, fastest heart rate of 133 beats per minute 4. Occasional PACs and PVCs noted 5. No significant bradycardia or pauses noted 6. No patient reported events MTDD
== END ==
LOC: HO.CARD 08:46
PROVIDERS: Visit Provider Nurse Practitioner Family
DX: I48.0 Paroxysmal atrial fibrillation (principal); I10 Essential (primary) hypertension
CPT/HCPCS: 93242; 93306

== ENCOUNTER → 2021-06-24 13:14 | Outpatient (BNVA) | payer OTHER, SELFPAY | PROVIDERS: Visit Provider Nurse Practitioner Family | DX: I48.0 Paroxysmal atrial fibrillation (principal); I10 Essential (primary) hypertension; Z79.01 Long term (current) use of anticoagulants; Z79.899 Other long term (current) drug therapy | CPT/HCPCS: 99212 ==

== ENCOUNTER 2022-06-30 10:14 | Emergency (ER) | payer OTHER, SELFPAY ==
--- NOTE | ~2022-06-30 | XR_ITS ---
EXAMINATION: XR CHEST CLINICAL INFORMATION: Chest pain. COMPARISON: 01/17/2021 chest radiograph. TECHNIQUE: Frontal view of the chest was obtained. FINDINGS: No significant abnormality is noted involving the heart, lungs, mediastinum, bony thorax or soft tissues. XR/XR chest 1V IMPRESSION: No acute cardiopulmonary process.
[2022-06-30 10:27] VITALS: BP 141/86; PULSE 78; RESP 18; TEMP 36.7; O2SAT 98; BMI 29.8
--- NOTE | 2022-06-30 10:28 | ECG_ITS ---
Test Reason : chest pain Blood Pressure : / mmHG Vent. Rate : 075 BPM Atrial Rate : 000 BPM P-R Int : 000 ms QRS Dur : 092 ms QT Int : 394 ms P-R-T Axes : 000 019 000 degrees QTc Int : [address] & T wave abnormality, consider anterior ischemia Abnormal ECG When compared to the previous EKG of No significant changes seen Referred By: Generic ED Physician Electronically Signed By:MEJIA FALL MD
[2022-06-30 10:55] LABS: Hematocrit 37.1 % (42.0-52.0); Hemoglobin 11.8 g/dl (14.0-18.0); Mean Corpuscular HGB Conc 31.8 g/dl (31.0-36.0); Mean Corpuscular Hemoglobin 27.8 pg (27.0-33.0); Mean Corpuscular Volume 87.5 fL (80.0-98.0); Mean Platelet Volume 11.4 fL (9.4-12.4); Platelet Count 208 X10*3/uL (160-400); Red Blood Count 4.24 X10*6/uL (4.60-5.80); Red Cell Distribution Width 13.3 % (11.0-16.0); White Blood Count 6.9 X10*3/uL (4.8-10.8)
[2022-06-30 11:13] LABS: Anion Gap 11 (12-20); Blood Urea Nitrogen 21 mg/dL (9-16); Carbon Dioxide 25 mmol/L (22-29); Chloride 109 mmol/L (96-108); Creatinine Clr Calc Pharmacy 69.8; Estimated Glomerular Filt Rate > 60; Glucose Random 125 mg/dL (60-115); Potassium 4.2 mmol/L (3.3-5.1); Sodium 141 mmol/L (135-145)
[2022-06-30 11:17] LABS: Troponin-I High Sensitivity 5.1 ng/L (<3.5-35.0)
--- NOTE | 2022-06-30 14:43 | ED_ITS ---
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 He came today because his stomach was also in a knot earlier today. He states the pain was in the right side of his chest and self resolved after 2-3 minutes. It comes and goes in various places in his chest. No associated nausea, vomiting, diarrhea or abdominal pain. No current chest pain. MD complaint: chest pain Onset (ago): year(s) Timing of current episode: episodic Prior episodes: Yes Onset: during rest Pain location: left chest and right chest Pain radiation: none Severity: moderate Quality: sharp Relieving factors: medication-other (does not know the name) Exacerbating factors: nothing Treatment prior to arrival: none Risk Factors Coronary artery disease risk factors: hypertension Thoracic aortic dissection risk factors: none Related Data Home Medications Medication Instructions Recorded Confirmed acetaminophen 650 mg 2 tab PO BID PRN fever 01/13/21 04/08/21 tablet,extended release (Mapap Arthritis Pain) albuterol sulfate 90 mcg/actuation 1 puff inhalation QID PRN wheezing 01/13/21 04/08/21 aerosol inhaler fluticasone 500 mcg-salmeterol 50 1 puff inhalation BEDTIME 01/13/21 04/08/21 mcg/dose blistr powdr for inhalation (Wixela Inhub) omeprazole 20 mg capsule,delayed 20 mg PO DAILY 01/13/21 04/08/21 release Previous Rx's Medication Instructions Recorded apixaban 5 mg tablet (Eliquis) 5 mg PO BID #60 tabs 01/14/21 metoprolol tartrate 50 mg tablet 50 mg PO BID #60 tabs 03/10/21 diltiazem HCl 120 mg 120 mg PO DAILY #30 caps 04/08/21 capsule,extended release 24 hr Allergies Allergy/AdvReac Type Severity Reaction Status Date / Time No Known Allergies Allergy Unknown Verified 06/24/21 13:30 Review of Systems Review of Systems: Yes all other systems are reviewed and are negative PMFSH Past Medical History Medical History Atrial fibrillation with RVR COPD (chronic obstructive pulmonary disease) GERD (gastroesophageal reflux disease) HTN (hypertension) No known health problems Surgical History No pertinent past surgical history Social History Social History Household Members: Spouse Housing: Apartment Do you presently have visiting nurse or other home services: No Patient Tobacco Use Status: Former Tobacco user service: No Current occupational status: retired Physical Exam Vital Signs: Vital Signs: Last Vital Signs Temp 98.1 F 06/30/22 10:27 Pulse 96 06/30/22 14:44 Resp 18 06/30/22 14:44 BP 173/100 H 06/30/22 14:44 Pulse Ox 99 06/30/22 14:44 O2 Del Method Room Air 06/30/22 14:44 BMI result Body Mass Index 29.8 Appearance: Alert. Oriented X3. No acute distress. Head: normocephalic, atraumatic. Eyes: Pupils equal, round and reactive to light. ENT: Pharynx normal. No tonsillar swelling or exudate. Neck: Normal inspection. Neck supple. CVS: irregularly irregular, regular rate. Pulses normal. Respiratory: No respiratory distress. Breath sounds normal. Abdomen: Soft and nontender. +BS x4 Skin: Skin warm and dry. Normal skin color. Normal skin turgor. No rashes. Extremities: No lower extremity edema. No joint swelling. Neuro/psych: Oriented X 3. No motor deficit. No sensory deficit. CN II-XII intact. Normal speech and cognition. Medical Decision Making Medical Decision Making MDM Narrative: 81-year-old male with history of AFib on Eliquis and Cardizem, hypertension, COPD who presents to the ER for evaluation of intermittent chest and back pains for the last 2 years. Had some stomach pain along with transient chest pain today, all symptoms resolved. Poor historian. He would like to go home. He is painfree. His EKG shows Afib. He had an outpatient Holter showing he is in afib 33% of the time. 1st troponin is negative. he initially refused 2nd troponin however he eventually allowed blood to be drawn. it was negative. he is hemodynamically stable for discharge home with plan to f/u with cardiology as an outpatient. Differential Diagnosis Differential Diagnoses: The differential diagnosis associated with the presentation includes angina, anxiety, rapid afib, ACS, costochondritis, pericarditis, myocarditis, GERD. Lab Data MDM Lab Attestation statement: I reviewed the patient's lab results. 06/30/22 10:43 06/30/22 10:43 Labs: Lab Results 06/30/22 06/30/22 06/30/22 Range/Units 10:43 10:43 10:43 WBC 6.9 (4.8-10.8) X10*3/uL RBC 4.24 L (4.60-5.80) X10*6/uL Hgb 11.8 L (14.0-18.0) g/dl Hct 37.1 L (42.0-52.0) % MCV 87.5 (80.0-98.0) fL MCH 27.8 (27.0-33.0) pg MCHC 31.8 (31.0-36.0) g/dl RDW 13.3 (11.0-16.0) % Plt Count 208 (160-400) X10*3/uL MPV 11.4 (9.4-12.4) fL Absolute Nucleated RBC 0.000 (0.0-0.012) X10*3/uL Nucleated RBC % (auto) 0.0 (0.0-0.2) /100WBC Sodium 141 (135-145) mmol/L Potassium 4.2 (3.3-5.1) mmol/L Chloride 109 H (96-108) mmol/L Carbon Dioxide 25 (22-29) mmol/L Anion Gap 11 L (12-20) BUN 21 H (9-16) mg/dL Creatinine 0.84 (0.5-1.4) mg/dL Estim Creat Clear Calc 69.8 Estimated GFR > 60 Random Glucose 125 H (60-115) mg/dL Calcium 9.0 (8.4-10.2) mg/dL Troponin I High Sens 5.1 (<3.5-35.0) ng/L 05/02/23 Range/Units 14:27 WBC (4.8-10.8) X10*3/uL RBC (4.60-5.80) X10*6/uL Hgb (14.0-18.0) g/dl Hct (42.0-52.0) % MCV (80.0-98.0) fL MCH (27.0-33.0) pg MCHC (31.0-36.0) g/dl RDW (11.0-16.0) % Plt Count (160-400) X10*3/uL MPV (9.4-12.4) fL Absolute Nucleated RBC (0.0-0.012) X10*3/uL Nucleated RBC % (auto) (0.0-0.2) /100WBC Sodium (135-145) mmol/L Potassium (3.3-5.1) mmol/L Chloride (96-108) mmol/L Carbon Dioxide (22-29) mmol/L Anion Gap (12-20) BUN (9-16) mg/dL Creatinine (0.5-1.4) mg/dL Estim Creat Clear Calc Estimated GFR Random Glucose (60-115) mg/dL Calcium (8.4-10.2) mg/dL Troponin I High Sens 5.4 (<3.5-35.0) ng/L Independent Interpretation I performed an independent interpretation of an: EKG and Plain X-Ray Interpretation: EKG with atrial fibrillation, HR 75 bpm, No ST segment elevations or depressions cxr without infiltrate Radiology Impression Discussion of test interpretation with radiology: I have reviewed the radiologist's reading. Radiologist Impression: EXAMINATION: XR CHEST CLINICAL INFORMATION: Chest pain. COMPARISON: 01/17/2021 chest radiograph. TECHNIQUE: Frontal view of the chest was obtained. FINDINGS: No significant abnormality is noted involving the heart, lungs, mediastinum, bony thorax or soft tissues. XR/XR chest 1V IMPRESSION: No acute cardiopulmonary process. Independent Historian Clinical information obtained from an independent historian. History obtained from or confirmed by: Other (daughter) External Record Review External record reviewed: Inpatient record, Office record, Outpatient record, Prior outpatient labs and Prior outpatient radiology Chronic Conditions Patient?s care impacted by: Hypertension and Other (afib) Scores Heart Score History: -0- slightly suspicious ECG: -0- normal Age: -2- > or = 65 Risk factory: -1- 1 or 2 risk factors Troponin: -0- < or = normal limit Score: 3 Risk: 1.7% Critical Care Time Critical Care Time Critical Care Time: No Discharge Plan Discharge Clinical Impression: Atypical chest pain Patient Disposition: Home, Self-Care Instructions: A-fib (Atrial Fibrillation) (DC), Chest Pain (DC) Additional Instructions: Your EKG today showed you are in atrial fibrillation. It is important that you continue your Eliquis and Cardizem. Your lab workup was unremarkable. It is important that you follow-up with Cardiology. If you develop new or worsening symptoms call 911 or come back to the ER for further evaluation. Prescriptions: No Action metoprolol tartrate 50 mg tablet 50 mg PO BID Qty: 60 5RF omeprazole 20 mg capsule,delayed release(DR/EC) 20 mg PO DAILY albuterol sulfate 90 mcg/actuation HFA aerosol inhaler 1 puff inhalation QID PRN (Reason: wheezing) acetaminophen [Mapap Arthritis Pain] 650 mg tablet extended release 2 tab PO BID PRN (Reason: fever) fluticasone propion-salmeterol [Wixela Inhub] 500-50 mcg/dose blister with device 1 puff inhalation BEDTIME Eliquis 5 mg tablet 5 mg PO BID Qty: 60 0RF diltiazem HCl 120 mg capsule,extended release 24hr 120 mg PO DAILY Qty: 30 5RF Referrals: [facility] [Provider Group] Print Language: Belgian
[2022-06-30 14:44] VITALS: BP 173/100; PULSE 96; RESP 18; O2SAT 99
[2022-06-30 14:57] LABS: Troponin-I High Sensitivity 5.4 ng/L (<3.5-35.0)
== END 2022-06-30 15:07 | disposition home or self-care (01) ==
LOC: HO.ED 15:06
PROVIDERS: Emergency Provider Emergency Medicine; PCP Family Medicine
DX: R07.89 Other chest pain (principal); K92.2 Gastrointestinal hemorrhage, unspecified; R06.02 Shortness of breath; R10.9 Unspecified abdominal pain; Z79.899 Other long term (current) drug therapy; Z87.891 Personal history of nicotine dependence
CPT/HCPCS: 36415; 71045; 80048; 84484; 85027; 93005; 99283

== ENCOUNTER 2022-08-28 12:20 | Day surgery (SDC) | payer OTHER, SELFPAY ==
--- NOTE | ~2022-08-28 | XR_ITS ---
EXAMINATION: XR HAND, RIGHT CLINICAL INFORMATION: Laceration. COMPARISON: None available. TECHNIQUE: PA, lateral, and oblique views of the right hand. FINDINGS: Extensive soft tissue injury/laceration of the distal third digit with comminuted displaced fractures involving the third distal phalanx. There is also distal soft tissue amputation of the index finger with mildly displaced fractures of the second distal phalanx. XR/XR hand RT min 3V IMPRESSION: Second and third distal phalangeal fractures with associated soft tissue laceration/amputations
--- NOTE | 2022-08-28 12:23 | ED.GENADULT ---
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 Patient states that he was mowing his daughters lawn when he put his hand into the blade and cut his fingers. Patient denies any loss of consciousness or head strike. Patient denies any dizziness, lightheadedness, abdominal pain, nausea, vomiting, fever, chills, blurry vision, double vision, loss of vision, chest pain, difficulty breathing, shortness of breath, back pain, night sweats, pain with urination, increased urinary frequency, increased urinary urgency, blood in his urine or stool, syncope or a near syncopal episode, bowel incontinence, bladder incontinence, bowel retention, bladder retention, or any other complaints at this time. Onset (ago): minute(s) Location: right and upper extremity Radiation: non-radiation Severity: severe Severity scale (1-10): 7 Relieving factors: none Exacerbating factors: none Associated symptoms: denies other symptoms Treatments prior to arrival: none Related Data Home Medications Medication Instructions Recorded Confirmed acetaminophen 650 mg 2 tab PO BID PRN fever 01/13/21 04/08/21 tablet,extended release (Mapap Arthritis Pain) albuterol sulfate 90 mcg/actuation 1 puff inhalation QID PRN wheezing 01/13/21 04/08/21 aerosol inhaler fluticasone 500 mcg-salmeterol 50 1 puff inhalation BEDTIME 01/13/21 04/08/21 mcg/dose blistr powdr for inhalation (Wixela Inhub) omeprazole 20 mg capsule,delayed 20 mg PO DAILY 01/13/21 04/08/21 release Previous Rx's Medication Instructions Recorded apixaban 5 mg tablet (Eliquis) 5 mg PO BID #60 tabs 01/14/21 metoprolol tartrate 50 mg tablet 50 mg PO BID #60 tabs 03/10/21 diltiazem HCl 120 mg 120 mg PO DAILY #30 caps 04/08/21 capsule,extended release 24 hr oxycodone-acetaminophen 5 mg-325 1 tab PO Q6H PRN pain (scale score 08/28/22 mg tablet (Percocet) 4-6) #28 tabs Allergies Allergy/AdvReac Type Severity Reaction Status Date / Time No Known Allergies Allergy Unknown Verified 06/24/21 13:30 Review of Systems Constitutional: Constitutional: Reports no additional constitutional complaints, Denies chills, Denies fever(s) and Denies night sweats Eyes: Eyes: Reports no additional eye complaints, Denies blurry vision, Denies change in vision, Denies diplopia, Denies eye discharge, Denies loss of vision and Denies eye pain ENT: Denies dizziness Cardiovascular: Cardiovascular: Reports no additional cardiovascular complaints, Denies chest pain, Denies lightheadedness, Denies Loss of Consciousness and Denies dyspnea Respiratory: Respiratory: Reports no additional respiratory complaints and Denies dyspnea Gastrointestinal: Gastrointestinal: Reports no additional gastrointestinal complaints, Denies abdominal pain, Denies melena, Denies hematochezia, Denies change in bowel habits and Denies change in stool character Genitourinary: Genitourinary: Reports no additional male genitourinary complaints, Denies hematuria, Denies oliguria, Denies difficulty urinating, Denies dysuria, Denies urinary frequency, Denies urinary hesitancy, Denies urinary incontinence and Denies urinary urgency Musculoskeletal: Musculoskeletal: Reports no additional musculoskeletal complaints, Denies numbness and Denies tingling Comments: right 2nd and 3rd finger pain Neurologic: Denies dizziness, Denies loss of vision, Denies numbness and Denies tingling Psychiatric: Psychiatric: Reports no additional psychiatric complaints Endocrine: Endocrine: Reports no additional endocrine complaints Hematologic/Lymphatic: Hematologic/Lymphatic: Reports no additional hematologic/lymphatic complaints Allergic/Immunologic: Allergic/Immunologic: Reports no additional allergic/immunologic complaints PMFSH Past Medical History Attestation statement: The following information was validated with the patient. (all information validated with the patient's daughter) Source: old records reviewed, obtained from family (patient's daughter provided additional history and confirmed the history provided by the patient) and nursing notes reviewed Medical History Atrial fibrillation with RVR COPD (chronic obstructive pulmonary disease) GERD (gastroesophageal reflux disease) HTN (hypertension) No known health problems Surgical History No pertinent past surgical history Social History Social History Household Members: Spouse Housing: Apartment Do you presently have visiting nurse or other home services: No Patient Tobacco Use Status: Former Tobacco user Advance Directives: No Advance Directives Information Provided: No service: No Current occupational status: retired Physical Exam ED Vital Signs: BMI result Body Mass Index 0.2 Const General: cooperative, no acute distress, alert and awake Nutritional Appearance: well nourished Orientation/consciousness: patient oriented x3 Limitations: no limitations HENMT Head: Yes normal to inspection and Yes atraumatic Ears: hearing grossly normal bilaterally and external ears normal General nose exam: Normal external nose present, no nasal discharge noted and no epistaxis Face and sinus: Yes normal facial exam, No abrasion and No laceration Mouth: Normal oral and palatal mucosa present, no drooling and no muffled voice Eyes General: appearance normal, both eyes and all related structures Periorbital: periorbital findings normal Eyelids: Yes eyelids normal Conjunctivae: conjunctivae normal Pupils: Equal, round and reactive pupils present EOM: EOMs intact bilaterally Neck Neck: Yes normal visual inspection, Yes full ROM and Yes no lymphadenopathy Chest Chest palpation & inspection: normal inspection of the chest Resp Effort & Inspection: normal respiratory effort and able to speak in complete sentences GI Inspection: Yes normal to inspection Neuro General: patient oriented x3 and moves all extremities Cranial nerves: Yes Equal, round and reactive pupils present Cognition (Neuro): normal cognition Motor exam (neuro): 5/5 motor strength present throughout Sensory Exam: Normal double simultaneous stimulation for sensation Coordination: [id number] test normal Extrem Other: General: Yes capillary refill normal Psych Appearance: grossly normal Mental Status: mental status grossly normal Affect: normal affect Attitude: cooperative Thought process: Normal thought process present Thought content: Normal thought content present Insight: Good insight present (Psych) Course Course Course Narrative: This is an RME: Additional HPI, ROS, PE not included below will be deferred to primary provider. 82 year old male presents w/ bad lac to right hand cut hand on corn grinder unclear last tetanus shot PE- Two large lacs to right hand fingers distal aspect Brought straight to [facility] Medications Administered Discontinued Medications Generic Name Dose Route Start Last Admin Trade Name Leonor PRN Reason Stop Dose Admin Diphtheria/Tetanus/Acell Pertussis 0.5 ml 08/28/22 12:23 08/28/22 12:59 Diphth,Pertus(Acell),Tet Adult 0.5 Ml Syringe IM 08/28/22 12:24 0.5 ml .ONCE ONE Administration Lidocaine HCl 10 ml 08/28/22 12:29 08/28/22 14:19 Lidocaine Hcl 1 % Mpf 5 Ml Vial SUBCUT 08/28/22 12:30 Not Given ONCE ONE Morphine Sulfate 4 mg 08/28/22 12:52 08/28/22 12:58 Morphine Sulfate 4 Mg/Ml Cartridge IM 08/28/22 12:53 4 mg ONCE ONE Administration Protocol Medical Decision Making Medical Decision Making MDM Narrative: Patient is an 82 year old assigned male at with a history of HTN and paroxysmal a-fib presenting to the emergency department today with a right hand injury. Patient's physical exam was as noted in the physical exam portion of this chart. Patient's right hand x-ray showed second and third distal phalangeal fractures with associated soft tissue lacerations / amputations. I spoke with the orthopedist carbonizer tester who came to the department, examined the patient, and determined that the patient needed to go to the OR for a partial amputation. I explained my physical exam findings as well as all test results to the patient and the patient's daughter. I answered all questions asked by the patient and the patient's daughter. Patient to go to the OR with orthopedics. Differential Diagnosis Differential Diagnoses: The differential diagnosis associated with the presentation includes Partial amputation Finger trauma Finger fracture Admission/Observation Consideration of admission/observation: Escalation of care including admission/observation considered Consult Healthcare Provider Management of the patient was discussed with: Critical Care Registered Nurse (spoke with orthopedic team as noted in the MDM portion of this chart.) Independent Interpretation I performed an independent interpretation of an: Plain X-Ray Interpretation: My interpretation is in agreement with the radiologist's impression of this imaging study. EXAMINATION: XR HAND, RIGHT CLINICAL INFORMATION: Laceration.? COMPARISON: None available.? TECHNIQUE: PA, lateral, and oblique views of the right hand. FINDINGS: Extensive soft tissue injury/laceration of the distal third digit with comminuted displaced fractures involving the third distal phalanx. There is also distal soft tissue amputation of the index finger with mildly displaced fractures of the second distal phalanx. XR/XR hand RT min 3V IMPRESSION: Second and third distal phalangeal fractures with associated soft tissue laceration/amputations Dictated By: Analia Muñoz MD Signed By: Electronically signed by Analia Muñoz MD 08/28/22 1330 Independent Historian Clinical information obtained from an independent historian. History obtained from or confirmed by: Other (patient's daughter provided additional history and confirmed the history provided by the patient. ) Chronic Conditions Patient?s care impacted by: Hypertension and Other (atrial fib) Discharge Plan Discharge Clinical Impression: Partial traumatic amputation of finger through phalanx, HTN (hypertension), PAF (paroxysmal atrial fibrillation) Patient Disposition: Home, Self-Care Additional Instructions: Keep bandage clean, dry, and intact Elevate throughout the day No heavy lifting Perform gentle fist/finger exercises throughout the day Do not bathe or shower--keep bandages dry Take Percocet 5/325mg tabs 1 tab by mouth every 6 hours as needed Hold Eliquis for 2 days and May resume regular dose on Wednesday08/30/22 Call [facility] orthopedics with any questions or concerns. Follow up with orthopedics in 7-10 days post op Prescriptions: New oxycodone-acetaminophen [Percocet] 5-325 mg tablet 1 tab PO Q6H PRN (Reason: pain (scale score 4-6)) Qty: 28 0RF Rx Instructions: Partial Fill upon patient request. Continued metoprolol tartrate 50 mg tablet 50 mg PO BID Qty: 60 5RF omeprazole 20 mg capsule,delayed release(DR/EC) 20 mg PO DAILY albuterol sulfate 90 mcg/actuation HFA aerosol inhaler 1 puff inhalation QID PRN (Reason: wheezing) acetaminophen [Mapap Arthritis Pain] 650 mg tablet extended release 2 tab PO BID PRN (Reason: fever) fluticasone propion-salmeterol [Wixela Inhub] 500-50 mcg/dose blister with device 1 puff inhalation BEDTIME diltiazem HCl 120 mg capsule,extended release 24hr 120 mg PO DAILY Qty: 30 5RF Held Eliquis 5 mg tablet 5 mg PO BID Qty: 60 0RF Hold Instructions: Resume on 08/30/22. hold until 2 days post operative Referrals: Balta Best PA-C [Physician Hospice Administrator] -
[2022-08-28] MEDS: Morphine Sulfate 4 MG/ML CARTRIDGE IM (12:58)
[2022-08-28] MEDS: Diphth,Pertus(ACell),Tet Adult 0.5 ML SYRINGE IM (12:59)
[2022-08-28 14:28] VITALS: BMI 23.4
[2022-08-28 14:31] VITALS: BP 125/71; PULSE 79; RESP 18; TEMP 36.8; O2SAT 98
--- NOTE | 2022-08-28 14:33 | PC.NURSE ---
patient was transferred to OR for local anesthesia and amp of his righrt hand 3rd digit. he was taken on our stretcher. IV placed in left lateral AC # 20 without complications.
--- NOTE | 2022-08-28 16:39 | MHC.SHP ---
Pre-Procedural Eval Section A Date of Service: 08/28/22 The patient is an INPATIENT: No Changes since office visit: No Cold of Flu in the past 2 weeks, No New Medical Problems, No Changes in Medication and No Patient answered all questions The History & Physical has been completed within 30 days and I have reviewed it.: Yes Section B Chief Complaint: R Hand Injury Allergies: Allergies Allergy/AdvReac Type Severity Reaction Status Date / Time No Known Allergies Allergy Unknown Verified 06/24/21 13:30 Plan I have reviewed the history and physical and performed a pertinent physical examination on my patient. No changes have occurred unless specified. Time Spent With Patient Time: Total time managing care of this patient today ____ minutes.
--- NOTE | 2022-08-28 17:33 | PM.OP ---
Brief Operative Note Date of Service: 08/28/22 Pre-op diagnosis: right distal phalanx partial amputation long finger Nail bed avulsion right index finger Post-op diagnosis: same Procedure: 1) completion amputation right long finger distal phalanx 2) nail bed reconstruction right index finger Surgeon: Howard Dean MD Anesthesia: local Was an [employer] Executive used for this Procedure?: Yes [employer] Executive: Elmira Schmidt Estimated blood loss (mL): 25 IV fluids (mL): 250 Pathology: other Condition: stable Disposition: PACU
[2022-08-28 17:39] VITALS: BP 141/93; PULSE 106; RESP 18; TEMP 37.7; O2SAT 97
--- NOTE | 2022-08-28 18:26 | PC.NURSE ---
Discharge teaching completed with patient and his daughter. In contact with Balta Best for discharge order. There is a discharge/transfer order in the computer. Confirmed with both the ED and [facility] that they did not receive post-op report on the patient indicting that he would need further workup. In addition, there is nothing in the operative note to suggest additional monitoring or interventions needed. Pt will be following up in surgeon's office on Wednesday. Surgery was performed using local anesthetic.
--- NOTE | 2022-09-18 15:05 | W.PM.OPN ---
Operative Note Operative Note Date of Service: 08/28/22 Narrative: Date of Service: 08/28/22 Pre-op diagnosis: right distal phalanx partial amputation long finger Nail bed avulsion right index finger Post-op diagnosis: same Procedure: 1) completion amputation right long finger distal phalanx 2) nail bed reconstruction right index finger Surgeon: Howard Dean MD Anesthesia: local Was an Housekeeper/Custodian/Laundry Worker used for this Procedure?: Yes Housekeeper/Custodian/Laundry Worker: Elmira Schmidt Estimated blood loss (mL): 25 IV fluids (mL): 250 Pathology: other Condition: stable Disposition: PACU Procedure in detail: Patient brought the operating room and placed supine on the hand table. He was prepped and draped in standard sterile fashion a time-out was called to identify proper site, proper procedure, proper surgeon and IV antibiotics were administered. I began by injecting the base of the long and index finger on the volar side with cord% Marcaine. Both digital nerves were anesthetized until the patient had no sensation in the index and ring finger. I then removed the tip of the long finger just proximal to the nail bed. This was hanging by volar skin only. There was a portion of the finger pad that was intact and once I debrided any excess bone of the distal phalanx and cauterized the medial and lateral neurovascular bundles I brought this pulp dorsal and using a 3-0 absorbable gut suture close this. Copious irrigation was performed in the wound was clean prior to closure. I had excellent soft tissue coverage with no tension and provided soft pad with no exposed bone. I then turned my attention to the ring finger where there was avulsion of the nail bed. In order to keep the germinal matrix healthy I placed small piece of foil from the cat gut suture package to keep the skin over the germinal matrix opened. This was loosely sutured in with 4-0 gut on a. There was no other intervention warranted for the index finger. Copious irrigation was performed. I was satisfied with the nail bed and with the completion amputation. Patient was placed in a well-padded volar spilint and sterile dressings. he was brought to the recovery room in stable condition. There were no known complications.
== END 2022-08-28 18:16 | disposition home or self-care (01) ==
LOC: HO.ED 14:26 → HO.SSS 14:41
PROVIDERS: Emergency Provider Emergency Medicine Emergency Medical Services; PCP Family Medicine; Visit Provider Orthopaedic Surgery
PROC: (CPT 26951; principal; 2022-08-28 15:40)
DX: S62.632B Displaced fracture of distal phalanx of right middle finger, initial encounter for open fracture (principal); S62.630B Displaced fracture of distal phalanx of right index finger, initial encounter for open fracture; S68.622A Partial traumatic transphalangeal amputation of right middle finger, initial encounter; S61.300A Unspecified open wound of right index finger with damage to nail, initial encounter; W26.8XXA Contact with other sharp object(s), not elsewhere classified, initial encounter; I10 Essential (primary) hypertension; I48.0 Paroxysmal atrial fibrillation; J44.9 Chronic obstructive pulmonary disease, unspecified; Z79.899 Other long term (current) drug therapy; Z79.01 Long term (current) use of anticoagulants; Y93.H2 Activity, gardening and landscaping; Y92.89 Other specified places as the place of occurrence of the external cause; Y99.8 Other external cause status
CPT/HCPCS: 26951; 11730; 73130; 88304; 88305; 88311; 90471; 90715; 96372; 99282; 99285; J0690; J2270; J2795

== ENCOUNTER → 2022-08-28 14:41 | Outpatient (BNV) | payer OTHER, SELFPAY | PROVIDERS: Emergency Provider Emergency Medicine Emergency Medical Services; PCP Family Medicine; Visit Provider Orthopaedic Surgery | DX: S68.622A Partial traumatic transphalangeal amputation of right middle finger, initial encounter (principal); S61.310A Laceration without foreign body of right index finger with damage to nail, initial encounter | CPT/HCPCS: 11760; 26951 ==

== ENCOUNTER → 2022-08-31 11:23 | Outpatient (BNVA) | payer OTHER, SELFPAY | PROVIDERS: PCP Family Medicine; Visit Provider Physician Assistant ==

== ENCOUNTER → 2022-09-03 14:56 | Outpatient (BNVA) | payer OTHER, SELFPAY | PROVIDERS: PCP Family Medicine; Visit Provider Physician Assistant ==

== ENCOUNTER 2022-09-07 13:41 | Outpatient (AMB) | payer OTHER, SELFPAY ==
[2022-09-07 13:42] VITALS: BMI 23.4
--- NOTE | 2022-09-07 13:42 | A.OFFVIS_ITS ---
Intake Vital Signs 09/07/22 13:42 Height 5 ft 6 in Weight 145 lb BMI 23.4 Intake Visit Reasons: P.O - s/p revision amp rt middle finger Intake Note: Miguelito is an 82 year old right hand dominant male who presents today with his daughter for a post operative wound check s/p Right Middle finger Revision Amputation 08/28/22 with NE. States this past weekend his dressing was a little wet and his home nurse was able to do a dressing change. Daughter was concern about her father getting an infection due to wet dressing. Allergies No Known Allergies Allergy (Unknown, Verified 09/07/22 13:48) HPI P.O - s/p revision amp rt middle finger HPI Details 82-year-old right hand dominant male who returns to the office today with his daughter for post-op right middle finger revision amputation, 08/28/[address] Dean. He states he got his dressing wet last weekend and his nurse was able to do a dressing change. He is taking his antibiotics as instructed. [facility] Medical History Atrial fibrillation with RVR COPD (chronic obstructive pulmonary disease) GERD (gastroesophageal reflux disease) HTN (hypertension) No known health problems PAF (paroxysmal atrial fibrillation) Surgical History No pertinent past surgical history Social History Household Members: Spouse Housing: Apartment Do you presently have visiting nurse or other home services: No Patient Tobacco Use Status: Former Tobacco user Quit Date: 2016 service: No Current occupational status: retired Review of Systems Const All systems reviewed & are unremarkable except as noted in HPI and below Physical Exam Vital Signs: BMI result Body Mass Index 23.4 Extrem Other: Right ring and middle finger: Incision are clean and intact. Sutures are intact. Sensations are intact and pulses are present. Assessment & Plan Assessment & Plan (1) Partial traumatic amputation of finger through phalanx: Code(s): S68.629A - Partial traumatic transphalangeal amputation of unspecified finger, initial encounter Plan Dressing was changed, wounds were cleaned . I did explain again, that it is not guaranteed that the nail will grow back but this is our attempt to make that happen. I encouraged him to keep the bandage clean, dry and intact. I did put in a STAT order for OT for ROM and wound care. He will see me back in one week for wound check, sooner if needed. Patient Instructions: Scribed for Balta Best PA-C, by Aguila Estrella phlebotomist medical lab assistant, on 09/07/2022 at 1:45 PM EST. I, Balta Best PA-C, have personally reviewed and agree with the information entered by the scribe. Coding Level of Care Code Global (02442) Diagnoses Partial traumatic amputation of finger through phalanx S68.629A
== END 2022-09-07 14:13 | disposition home or self-care (01) ==
PROVIDERS: PCP Family Medicine; Visit Provider Physician Assistant
DX: S68.629A Partial traumatic transphalangeal amputation of unspecified finger, initial encounter (principal)
CPT/HCPCS: 99024

== ENCOUNTER → 2022-09-07 13:41 | Outpatient (BNVA) | payer OTHER, SELFPAY | PROVIDERS: PCP Family Medicine; Visit Provider Physician Assistant ==

== ENCOUNTER 2022-09-11 11:09 | Outpatient (AMB) | payer OTHER, SELFPAY ==
[2022-09-11 11:14] VITALS: BMI 23.4
--- NOTE | 2022-09-11 11:14 | MHC.OFFVIS ---
Intake Vital Signs 09/11/22 11:14 Height 5 ft 6 in Weight 145 lb BMI 23.4 Intake Visit Reasons: Postop-s/p revision amp rt middle finger Intake Note: Miguelito an 82 year old male who presents today for a post operative wound check/dressing change of ring finger and right middle finger revision amputation, 08/28/22. Patient reports pain in his middle finger and mild pain in his ring finger. Denies numbness or tingling. He continues taking antibiotics. Allergies No Known Allergies Allergy (Unknown, Verified 09/07/22 13:48) HPI Postop-s/p revision amp rt middle finger HPI Details 82-year-old right hand dominant male who returns to the office today with his daughter for post-op right middle finger revision amputation, 08/28/[address] Dean. He is doing well today, no concerns. [facility] Medical History Atrial fibrillation with RVR COPD (chronic obstructive pulmonary disease) GERD (gastroesophageal reflux disease) HTN (hypertension) No known health problems PAF (paroxysmal atrial fibrillation) Surgical History No pertinent past surgical history Social History Household Members: Spouse Housing: Apartment Do you presently have visiting nurse or other home services: No Patient Tobacco Use Status: Former Tobacco user Quit Date: 2016 service: No Current occupational status: retired Review of Systems Const All systems reviewed & are unremarkable except as noted in HPI and below Physical Exam Vital Signs: BMI result Body Mass Index 23.4 Extrem Other: Right ring and middle finger: Incision are clean and intact. Sutures are intact. Metal nail bed plate intact. Sensations are intact and pulses are present. Assessment & Plan Assessment & Plan (1) Partial traumatic amputation of finger through phalanx: Code(s): S68.629A - Partial traumatic transphalangeal amputation of unspecified finger, initial encounter Plan: Right middle finger and right index finger appear to be healing well remaining sutures are intact and continue to dissolve. He does have some stiffness that is developing in the fingers at the level of the PIP and the PIP joint. The incision was cleaned today with saline and redressed with Xeroform and gauze. I did put in a stat referral for occupational therapy for them to work on range of motion and he will also have them work on wound care. I would like to see him back in 1 week. Orders: Orders OT Evaluation and Treatment Today S68.620A - Partial traumatic transphalangeal amputation of unspecified finger, initial encounter Coding Level of Care Code Global (67616) Diagnoses Partial traumatic amputation of finger through phalanx S68.627O
== END 2022-09-11 12:05 | disposition home or self-care (01) ==
PROVIDERS: PCP Family Medicine; Visit Provider Physician Assistant
DX: S68.62 Partial traumatic transphalangeal amputation of other and unspecified finger (principal)
CPT/HCPCS: 99024

== ENCOUNTER → 2022-09-11 11:09 | Outpatient (BNVA) | payer OTHER, SELFPAY | PROVIDERS: PCP Family Medicine; Visit Provider Physician Assistant ==

== ENCOUNTER 2022-09-16 16:13 | Emergency (ER) | payer OTHER, SELFPAY ==
--- NOTE | ~2022-09-16 | XR_ITS ---
EXAMINATION: XR CHEST CLINICAL INFORMATION: Shortness of breath. COMPARISON: Chest radiograph 06/30/2022. TECHNIQUE: 2 views of the chest were obtained. FINDINGS: Stable prominence of the cardiomediastinal silhouette. No focal airspace opacity, pleural effusion or pneumothorax. No acute osseous findings. The visualized upper abdomen is within normal limits. XR/XR chest 2V IMPRESSION: 1. No acute cardiopulmonary findings. 2. Stable prominence of the cardiomediastinal silhouette.
[2022-09-16 16:44] VITALS: BP 157/87; PULSE 98; RESP 18; TEMP 36; O2SAT 98; BMI 28.2
--- NOTE | 2022-09-16 16:44 | ED_ITS ---
HPI - SOB/Dyspnea General Chief Complaint: Dyspnea Stated Complaint: SOB, congested? Time Seen by Provider: 09/16/22 20:49 Source: patient, family and online services manager Mode of arrival: ambulatory Limitations: language barrier (History initially started with hospital staff interpreting service but patient's daughter elected to interpret) History of Present Illness HPI Narrative: 82-year-old male presents for evaluation of facial congestion shortness of breath For the patient's daughter, patient has had approximately 8 weeks of facial pressure, cough, congestion and shortness of breath He has been losing weight per the daughter but unclear how much The patient denies any fevers or chills. Apparently these symptoms started about 8 weeks ago He has completed 2 courses of Augmentin without any improvement his symptoms His primary doctor has had an taking [id number] allergy medication with Flonase Related Data Home Medications Medication Instructions Recorded Confirmed albuterol sulfate 90 mcg/actuation 1 puff inhalation QID PRN wheezing 01/13/21 08/28/22 aerosol inhaler fluticasone 500 mcg-salmeterol 50 1 puff inhalation BEDTIME 01/13/21 08/28/22 mcg/dose blistr powdr for inhalation (Wixela Inhub) omeprazole 20 mg capsule,delayed 20 mg PO DAILY 01/13/21 08/28/22 release Previous Rx's Medication Instructions Recorded apixaban 5 mg tablet (Eliquis) 5 mg PO BID #60 tabs 01/14/21 metoprolol tartrate 50 mg tablet 50 mg PO BID #60 tabs 03/10/21 diltiazem HCl 120 mg 120 mg PO DAILY #30 caps 04/08/21 capsule,extended release 24 hr amoxicillin 500 mg-potassium 1 tab PO BID 7 days #14 tabs 08/28/22 clavulanate 125 mg tablet (Augmentin) oxycodone-acetaminophen 5 mg-325 1 tab PO Q6H PRN pain (scale score 08/28/22 mg tablet (Percocet) 4-6) #28 tabs azithromycin 250 mg tablet 250 mg PO DAILY #4 tabs 09/16/22 prednisone 20 mg tablet 40 mg PO DAILY #8 tabs 09/16/22 Allergies Allergy/AdvReac Type Severity Reaction Status Date / Time No Known Allergies Allergy Unknown Verified 09/16/22 16:44 Review of Systems Constitutional: Constitutional: Reports as per HPI, Denies chills, Denies fatigue, Denies fever(s) and Denies headache(s) ENT: Reports facial pain, Denies headache(s) and Reports sinus pressure Cardiovascular: Cardiovascular: Denies chest pain and Reports dyspnea Respiratory: Respiratory: Reports cough and Reports dyspnea Gastrointestinal: Gastrointestinal: Denies abdominal pain, Denies constipation and Denies vomiting Genitourinary: Genitourinary: Denies difficulty urinating and Denies dysuria Neurologic: Denies headache(s) and Denies focal weakness Endocrine: Endocrine: Denies fatigue PMFSH Past Medical History Medical History Atrial fibrillation with RVR COPD (chronic obstructive pulmonary disease) GERD (gastroesophageal reflux disease) HTN (hypertension) No known health problems PAF (paroxysmal atrial fibrillation) Surgical History No pertinent past surgical history Social History Social History Household Members: Spouse Housing: Apartment Do you presently have visiting nurse or other home services: No Patient Tobacco Use Status: Former Tobacco user Quit Date: 2016 Advance Directives: No Advance Directives Information Provided: Yes service: No Current occupational status: retired Physical Exam Vital Signs: Vital Signs: Last Vital Signs Temp 97.3 F 09/16/22 23:18 Pulse 86 09/16/22 23:18 Resp 16 09/16/22 23:18 BP 159/93 H 09/16/22 23:18 Pulse Ox 97 09/16/22 23:18 O2 Del Method Room Air 09/16/22 23:18 BMI result Body Mass Index 28.2 Const: General: healthy appearing, comfortable, no acute distress, alert and awake Nutritional Appearance: well nourished Orientation/consciousness: patient oriented x3 HEENT: Head: Yes normocephalic and Yes atraumatic Ears: TM's normal bilaterally and EAC's normal Face and sinus: Yes sinuses nontender and Yes other (Right-sided nasal polyp) Eyes: Eyelids: Yes eyelids normal Conjunctivae: conjunctivae normal Sclerae: sclerae normal Corneas: corneas normal Pupils: Equal, round and reactive pupils present EOM: EOMs intact bilaterally Neck: Neck: Yes full ROM Resp: Effort & Inspection: normal respiratory effort, able to speak in complete sentences, no audible wheezes and not labored Auscultation: clear to auscultation bilaterally Skin: General skin exam: no rashes or lesions noted and elasticity normal Neuro: General: patient oriented x3 Cranial nerves: Yes Equal, round and reactive pupils present and Yes Bilaterally intact EOM present Cognition (Neuro): normal cognition Course Course Course Narrative: RME - 82 yo Mauritanian speaking male with history of COPD, afib on Eliquis, HTN, GERD who presents to the ER for evaluation of SOB, mild chest pain and nasal congestion for the last 1 month. Daughter reports overall decline with decreased PO intake and weight loss. VSS in triage. No resp distress. Plan: CXR, EKG, labs Medications Administered Discontinued Medications Generic Name Dose Route Start Last Admin Trade Name Freq PRN Reason Stop Dose Admin Azithromycin 500 mg 09/16/22 23:06 09/16/22 23:17 Azithromycin 500 Mg Tablet PO 09/16/22 23:07 500 mg ONCE ONE Administration Prednisone 40 mg 09/16/22 23:06 09/16/22 23:17 Prednisone 20 Mg Tablet PO 09/16/22 23:07 40 mg ONCE ONE Administration Medical Decision Making Medical Decision Making [facility] Narrative: Patient had labs, chest x-ray that did not show any acute findings. He has a mild elevation of his BNP which is slightly decreased from his previous visit. Chest x-ray does not show any evidence of pulmonary vascular congestion. The patient is not hypoxic, or tachypneic. Symptoms are consistent with upper respiratory infection. Discussed with the patient and his daughter. Will treat with azithromycin and prednisone he will follow-up with his primary doctor for into referral given the longevity of his symptoms Differential Diagnosis Upper respiratory infection Acute sinusitis Viral syndrome Facial pain Bronchitis Lab Data [facility] Lab Attestation statement: I reviewed the patient's lab results. (No leukocytosis, mild baseline anemia with a hemoglobin of 12.3 the hematocrit of 38.7. Electrolytes within normal limits.) 09/16/22 17:08 09/16/22 17:08 Labs: Lab Results 09/16/22 09/16/22 09/16/22 Range/Units 17:08 17:08 17:08 WBC 9.1 (4.8-10.8) X10*3/uL RBC 4.44 L (4.60-5.80) X10*6/uL Hgb 12.3 L (14.0-18.0) g/dl Hct 38.7 L (42.0-52.0) % MCV 87.2 (80.0-98.0) fL MCH 27.7 (27.0-33.0) pg MCHC 31.8 (31.0-36.0) g/dl RDW 13.2 (11.0-16.0) % Plt Count 265 D (160-400) X10*3/uL MPV 11.2 (9.4-12.4) fL Immature Gran % (Auto) 0.4 (0.0-0.4) % Neut % (Auto) 70.1 (45-73) % Lymph % (Auto) 19.3 L (20-40) % [place] % (Auto) 8.7 (2-11) % Eos % (Auto) 1.2 (0-4) % Baso % (Auto) 0.3 (0-2) % Lymph # (Auto) 1.8 (1.2-4.9) X10*3/uL [place] # (Auto) 0.8 (0.1-1.2) X10*3/uL Eos # (Auto) 0.1 (0.0-0.4) X10*3/uL Baso # (Auto) 0.0 (0.0-0.2) X10*3/uL Abs Immat Gran (auto) 0.04 H (0.00-0.03) X10*3/uL Absolute Neuts (auto) 6.4 (2.0-8.3) x10*3/uL Absolute Nucleated RBC 0.000 (0.0-0.012) X10*3/uL Nucleated RBC % (auto) 0.0 (0.0-0.2) /100WBC Sodium 137 (135-145) mmol/L Potassium 4.7 (3.3-5.1) mmol/L Chloride 104 (96-108) mmol/L Carbon Dioxide 18 L (22-29) mmol/L Anion Gap TNP BUN 28 H (9-16) mg/dL Creatinine 1.13 (0.5-1.4) mg/dL Estim Creat Clear Calc 46.5 Estimated GFR > 60 Random Glucose 156 H (60-115) mg/dL Calcium 9.1 (8.4-10.2) mg/dL Magnesium 1.7 (1.6-2.6) mg/dL Total Bilirubin 0.4 (0.0-1.0) mg/dL Direct Bilirubin 0.1 (0.0-0.5) mg/dL AST 18 (5-37) U/L ALT 15 (0-40) U/L Alkaline Phosphatase 64 (39-117) U/L Troponin I High Sens 7.8 (<3.5-35.0) ng/L B-Natriuretic Peptide (<100) pg/mL Total Protein 6.9 (6.5-8.0) g/dL Albumin 4.1 (3.5-5.0) g/dL 09/16/22 Range/Units 17:08 WBC (4.8-10.8) X10*3/uL RBC (4.60-5.80) X10*6/uL Hgb (14.0-18.0) g/dl Hct (42.0-52.0) % MCV (80.0-98.0) fL MCH (27.0-33.0) pg MCHC (31.0-36.0) g/dl RDW (11.0-16.0) % Plt Count (160-400) X10*3/uL MPV (9.4-12.4) fL Immature Gran % (Auto) (0.0-0.4) % Neut % (Auto) (45-73) % Lymph % (Auto) (20-40) % [place] % (Auto) (2-11) % Eos % (Auto) (0-4) % Baso % (Auto) (0-2) % Lymph # (Auto) (1.2-4.9) X10*3/uL [place] # (Auto) (0.1-1.2) X10*3/uL Eos # (Auto) (0.0-0.4) X10*3/uL Baso # (Auto) (0.0-0.2) X10*3/uL Abs Immat Gran (auto) (0.00-0.03) X10*3/uL Absolute Neuts (auto) (2.0-8.3) x10*3/uL Absolute Nucleated RBC (0.0-0.012) X10*3/uL Nucleated RBC % (auto) (0.0-0.2) /100WBC Sodium (135-145) mmol/L Potassium (3.3-5.1) mmol/L Chloride (96-108) mmol/L Carbon Dioxide (22-29) mmol/L Anion Gap BUN (9-16) mg/dL Creatinine (0.5-1.4) mg/dL Estim Creat Clear Calc Estimated GFR Random Glucose (60-115) mg/dL Calcium (8.4-10.2) mg/dL Magnesium (1.6-2.6) mg/dL Total Bilirubin (0.0-1.0) mg/dL Direct Bilirubin (0.0-0.5) mg/dL AST (5-37) U/L ALT (0-40) U/L Alkaline Phosphatase (39-117) U/L Troponin I High Sens (<3.5-35.0) ng/L B-Natriuretic Peptide 177 H (<100) pg/mL Total Protein (6.5-8.0) g/dL Albumin (3.5-5.0) g/dL Independent Interpretation I performed an independent interpretation of an: Plain X-Ray (No focal infilt rate) Radiology Impression Discussion of test interpretation with radiology: I have reviewed the radiologist's reading. Radiologist Impression: No acute pathology Discharge Plan Discharge Clinical Impression: Acute upper respiratory infection Patient Disposition: Home, Self-Care Instructions: Upper Respiratory Infection (ED) Additional Instructions: Take the azithromycin and the prednisone as prescribed You may continue using [id number] allergy medication You should use a humidifier next to your bed every night Follow-up with your primary doctor Prescriptions: New azithromycin 250 mg tablet 250 mg PO DAILY Qty: 4 0RF prednisone 20 mg tablet 40 mg PO DAILY Qty: 8 0RF No Action metoprolol tartrate 50 mg tablet 50 mg PO BID Qty: 60 5RF omeprazole 20 mg capsule,delayed release(DR/EC) 20 mg PO DAILY albuterol sulfate 90 mcg/actuation HFA aerosol inhaler 1 puff inhalation QID PRN (Reason: wheezing) fluticasone propion-salmeterol [Wixela Inhub] 500-50 mcg/dose blister with device 1 puff inhalation BEDTIME Eliquis 5 mg tablet 5 mg PO BID Qty: 60 0RF Hold Instructions: Resume on 08/30/22. hold until 2 days post operative oxycodone-acetaminophen [Percocet] 5-325 mg tablet 1 tab PO Q6H PRN (Reason: pain (scale score 4-6)) Qty: 28 0RF Rx Instructions: Partial Fill upon patient request. amoxicillin-pot clavulanate [Augmentin] 500-125 mg tablet 1 tab PO BID 7 Days Qty: 14 0RF diltiazem HCl 120 mg capsule,extended release 24hr 120 mg PO DAILY Qty: 30 5RF Interventions: ED Discharge Assessment Last Done: 09/16/22 23:22 Discharge Date/Time: 09/16/22 23:26 Print Language: Mauritanian
--- NOTE | 2022-09-16 16:48 | ECG_ITS ---
Test Reason : DYSPNEA Blood Pressure : / mmHG Vent. Rate : 090 BPM Atrial Rate : 000 BPM P-R Int : 000 ms QRS Dur : 088 ms QT Int : 370 ms P-R-T Axes : 000 016 -02 degrees QTc Int : 452 ms Atrial fibrillation Nonspecific ST abnormality Abnormal ECG When compared to the previous EKG of No significant changes seen Referred By: Bertha Gudino Electronically Signed By:Corby Mina
[2022-09-16 17:13] LABS: MANUAL DIFF FLAG NO
[2022-09-16 17:17] LABS: Basophils Percent Auto 0.3 % (0-2); Eosinophils Absolute Auto 0.1 X10*3/uL (0.0-0.4); Eosinophils Percent Auto 1.2 % (0-4); Hematocrit 38.7 % (42.0-52.0); Hemoglobin 12.3 g/dl (14.0-18.0); Imm Gran Abs Auto 0.04 X10*3/uL (0.00-0.03); Imm Gran Pct Auto 0.4 % (0.0-0.4); Lymphocytes Absolute Auto 1.8 X10*3/uL (1.2-4.9); Lymphocytes Percent Auto 19.3 % (20-40); Mean Corpuscular HGB Conc 31.8 g/dl (31.0-36.0); Mean Corpuscular Hemoglobin 27.7 pg (27.0-33.0); Mean Corpuscular Volume 87.2 fL (80.0-98.0); Mean Platelet Volume 11.2 fL (9.4-12.4); Monocytes Absolute Auto 0.8 X10*3/uL (0.1-1.2); Monocytes Percent Auto 8.7 % (2-11); Neutrophils Absolute Auto 6.4 x10*3/uL (2.0-8.3); Neutrophils Percent Auto 70.1 % (45-73); Platelet Count 265 X10*3/uL (160-400); Red Blood Count 4.44 X10*6/uL (4.60-5.80); Red Cell Distribution Width 13.2 % (11.0-16.0); White Blood Count 9.1 X10*3/uL (4.8-10.8)
[2022-09-16 17:37] LABS: Alanine Aminotransferase 15 U/L (0-40); Albumin Level 4.1 g/dL (3.5-5.0); Alkaline Phosphatase 64 U/L (39-117); Aspartate Amino Transferase 18 U/L (5-37); Bilirubin Direct 0.1 mg/dL (0.0-0.5); Bilirubin Total 0.4 mg/dL (0.0-1.0); Blood Urea Nitrogen 28 mg/dL (9-16); Calcium 9.1 mg/dL (8.4-10.2); Chloride 104 mmol/L (96-108); Creatinine Clr Calc Pharmacy 46.5; Estimated Glomerular Filt Rate > 60; Glucose Random 156 mg/dL (60-115); Magnesium 1.7 mg/dL (1.6-2.6); Potassium 4.7 mmol/L (3.3-5.1); Sodium 137 mmol/L (135-145); Total Protein 6.9 g/dL (6.5-8.0)
[2022-09-16 17:38] LABS: B Type Natriuretic Peptide 177 pg/mL (<100)
[2022-09-16 17:39] LABS: Troponin-I High Sensitivity 7.8 ng/L (<3.5-35.0)
[2022-09-16 22:48] LABS: Carbon Dioxide 18 mmol/L (22-29)
[2022-09-16] MEDS: Azithromycin 500 MG TABLET PO (23:17)
[2022-09-16] MEDS: predniSONE 20 MG TABLET 40 MG PO (23:17)
[2022-09-16 23:18] VITALS: BP 159/93; PULSE 86; RESP 16; TEMP 36.3; O2SAT 97
== END 2022-09-16 23:26 | disposition home or self-care (01) ==
PROVIDERS: Physician Assistant; Emergency Provider Emergency Medicine; PCP Family Medicine
DX: J06.9 Acute upper respiratory infection, unspecified (principal); R05.9 Cough, unspecified; R06.02 Shortness of breath; I48.0 Paroxysmal atrial fibrillation; I10 Essential (primary) hypertension; Z87.891 Personal history of nicotine dependence; Z79.01 Long term (current) use of anticoagulants
CPT/HCPCS: 36415; 71046; 80048; 80076; 83735; 83880; 84484; 85025; 93005; 99284

== ENCOUNTER → 2022-09-16 16:48 | Outpatient (BNV) | payer OTHER, SELFPAY | PROVIDERS: Emergency Provider Emergency Medicine; PCP Family Medicine; Visit Provider Internal Medicine Cardiovascular Disease | DX: I48.91 Unspecified atrial fibrillation (principal) | CPT/HCPCS: 93010 ==

== ENCOUNTER 2022-09-18 13:22 | Outpatient (AMB) | payer OTHER, SELFPAY ==
--- NOTE | 2022-09-18 13:23 | MHC.OFFVIS ---
Intake Vital Signs 09/18/22 13:30 Height 5 ft 5 in Weight 169 lb BMI 28.1 Intake Visit Reasons: Postop-s/p revision amp rt MF-Wound check Intake Note: Miguelito an 82 year old male who presents today for a post operative wound check/dressing change of ring finger and right middle finger revision amputation, 08/28/22.?Patient reports he is doing well, he continues to go daily dressing changes as instructed. Allergies No Known Allergies Allergy (Unknown, Verified 09/18/22 13:31) HPI Postop-s/p revision amp rt MF-Wound check HPI Details 82-year-old male who returns to the office today for post-op wound check of right middle finger revision amputation, 08/28/22. He states he has no pain and is doing well overall. He continues to do his daily dressing changes as instructed and attending occupational therapy with benefits. He has no concerns today. [facility] Medical History Atrial fibrillation with RVR COPD (chronic obstructive pulmonary disease) GERD (gastroesophageal reflux disease) HTN (hypertension) No known health problems PAF (paroxysmal atrial fibrillation) Surgical History No pertinent past surgical history Social History Household Members: Spouse Housing: Apartment Do you presently have visiting nurse or other home services: No Patient Tobacco Use Status: Former Tobacco user Quit Date: 2016 service: No Current occupational status: retired Review of Systems Const All systems reviewed & are unremarkable except as noted in HPI and below Physical Exam Vital Signs: BMI result Body Mass Index 28.1 Extrem Other: Right ring and middle finger: Incision are clean and intact. Sensations are intact and pulses are present. He is able to bring the MCP to 90, and is working to bring the PIP down to the palmar crease. Assessment & Plan Assessment & Plan (1) Partial traumatic amputation of finger through phalanx: Code(s): S68.629A - Partial traumatic transphalangeal amputation of unspecified finger, initial encounter Plan He will continue working with occupational therapy for wound changes and ROM. We did work on some ROM techniques in the office today and I was able to bring him to a closed fist which he is also able to also perform on his own. I would like to see him back in 2 weeks for another wound check, sooner if needed. Patient Instructions: Scribed for Balta Best PA-C, by Aguila Estrella medical receptionist medical assistant, on 09/18/2022 at 1:15 PM EST. I, Balta Best PA-C, have personally reviewed and agree with the information entered by the scribe. Coding Level of Care Code Global (18768) Diagnoses Partial traumatic amputation of finger through phalanx S68.629A
[2022-09-18 13:30] VITALS: BMI 28.1
== END 2022-09-18 14:28 | disposition home or self-care (01) ==
PROVIDERS: PCP Family Medicine; Visit Provider Physician Assistant
DX: S68.629A Partial traumatic transphalangeal amputation of unspecified finger, initial encounter (principal)
CPT/HCPCS: 99024

== ENCOUNTER → 2022-09-18 13:22 | Outpatient (BNVA) | payer OTHER, SELFPAY | PROVIDERS: PCP Family Medicine; Visit Provider Physician Assistant ==

== ENCOUNTER 2022-09-22 08:32 | Emergency (ER) | payer OTHER, SELFPAY ==
--- NOTE | ~2022-09-22 | CT_ITS ---
EXAMINATION: CT SINUS WITHOUT CONTRAST CLINICAL INFORMATION: Severe sinus congestion. COMPARISON: None available. TECHNIQUE: Noncontrast multidetector CT imaging examination of the paranasal sinuses performed. The axial images and multiplanar reformatted images are reviewed. This CT examination was performed using dose optimization techniques as appropriate, variously including the following: *Automated exposure control *Adjustment of mA and/or kV according to patient size (this includes techniques or standardized protocols for targeted exams where dose is matched to indication/reason for exam; i.e. extremities or head) *Use of iterative reconstruction technique DLP: 114 mGy-cm FINDINGS: Frontal sinuses and drainage pathways: Minimal mucosal thickening of inferior frontal sinuses without air-fluid level. The frontal sinus drainage pathways are clear. Maxillary sinuses and drainage pathways: There are two mucous retention cysts of the left maxillary sinus. The maxillary sinus ostia are widely patent. Uncinate processes are intact. Ethmoid and sphenoid sinuses: Ethmoid roofs are symmetric and lamina papyracea are intact. Small amount mucus is present within a left ethmoid air cell. The sphenoid sinuses are well aerated and sphenoid ostia are patent. Carotid canals are covered by bone. Nasal cavity and nasopharynx: The nasal cavity is clear; the nasal channels are well aerated. No evidence of nasal polyposis. Mild leftward deviation of nasal septum. TMJs and orbits: The extraocular muscles, optic nerves and retrobulbar fat are unremarkable. The temporomandibular joints are normal. Facial soft tissues: No abscess or focal inflammatory change. Small, 0.7 cm smoothly marginated focus in superficial subcutaneous tissue of the left face is partially included in the [id number], and this could represent an epidermal inclusion cyst. Imaged portions of the brain parenchyma: No acute findings within the visualized parenchyma. Moderate parenchymal volume loss with commensurate prominence of ventricles and sulci. CT/CT sinus wo IV con IMPRESSION: No acute imaging abnormalities. No evidence of active inflammation of the paranasal sinuses. The ostiomeatal units are patent and there are no air-fluid levels.
[2022-09-22 08:35] VITALS: BP 136/90; PULSE 100; RESP 22; TEMP 36.2; O2SAT 100; BMI 25.4
[2022-09-22 10:04] VITALS: BP 117/84; PULSE 87; RESP 12; O2SAT 98
--- NOTE | 2022-09-22 10:08 | MHC.EDTECH ---
pt refusing blood work until daughter is present
[2022-09-22 10:55] LABS: MANUAL DIFF FLAG NO
[2022-09-22 10:57] LABS: Basophils Percent Auto 0.1 % (0-2); Eosinophils Absolute Auto 0.1 X10*3/uL (0.0-0.4); Eosinophils Percent Auto 0.7 % (0-4); Hematocrit 43.3 % (42.0-52.0); Hemoglobin 13.9 g/dl (14.0-18.0); Imm Gran Abs Auto 0.06 X10*3/uL (0.00-0.03); Imm Gran Pct Auto 0.6 % (0.0-0.4); Lymphocytes Absolute Auto 1.5 X10*3/uL (1.2-4.9); Lymphocytes Percent Auto 14.3 % (20-40); Mean Corpuscular HGB Conc 32.1 g/dl (31.0-36.0); Mean Corpuscular Hemoglobin 28.1 pg (27.0-33.0); Mean Corpuscular Volume 87.7 fL (80.0-98.0); Mean Platelet Volume 11.3 fL (9.4-12.4); Monocytes Percent Auto 9.6 % (2-11); Neutrophils Absolute Auto 7.8 x10*3/uL (2.0-8.3); Neutrophils Percent Auto 74.7 % (45-73); Platelet Count 227 X10*3/uL (160-400); Red Blood Count 4.94 X10*6/uL (4.60-5.80); Red Cell Distribution Width 13.2 % (11.0-16.0); White Blood Count 10.5 X10*3/uL (4.8-10.8)
[2022-09-22 11:29] LABS: Alanine Aminotransferase 18 U/L (0-40); Albumin Level 3.9 g/dL (3.5-5.0); Alkaline Phosphatase 56 U/L (39-117); Anion Gap 11 (12-20); Aspartate Amino Transferase 14 U/L (5-37); Bilirubin Total 0.9 mg/dL (0.0-1.0); Blood Urea Nitrogen 23 mg/dL (9-16); Calcium 9.5 mg/dL (8.4-10.2); Carbon Dioxide 25 mmol/L (22-29); Chloride 101 mmol/L (96-108); Creatinine Clr Calc Pharmacy 49.4; Estimated Glomerular Filt Rate > 60; Glucose Random 112 mg/dL (60-115); Potassium 4.4 mmol/L (3.3-5.1); Sodium 133 mmol/L (135-145); Total Protein 6.8 g/dL (6.5-8.0)
[2022-09-22 11:32] LABS: TSH reflex Free T4 1.05 uIU/mL (0.32-4.0)
--- NOTE | 2022-09-22 11:48 | ED.GENADULT ---
HPI - General Adult General Chief complaint: Dyspnea Stated complaint: Diff Breathing Time Seen by Provider: 09/22/22 09:31 Source: patient Limitations: no limitations History of Present Illness HPI narrative: 82-year-old male presents with a couple of complaints. First of all, daughter reports that he has been having some shortness of breath. More of a symptom associated with nasal congestion. Today he was so short of breath with trying to eat that he appear to be significantly disc neck. This has been going on for at least 1 month. There is no clear relieving or exacerbating features. He was seen by a provider was given prescriptions for antihistamines, nasal steroids, oral steroids, antibiotics for the past month. No treatment has improved any of his current symptomatology. He has had no fevers or chills, no nausea vomiting, no diarrhea constipation. Patient denies any facial pain or pressure. As result there is no radiating pain is well. He also does complain of some urinary frequency and dysuria. He has no back pain. Related Data Home Medications Medication Instructions Recorded Confirmed albuterol sulfate 90 mcg/actuation 1 puff inhalation QID PRN wheezing 01/13/21 08/28/22 aerosol inhaler fluticasone 500 mcg-salmeterol 50 1 puff inhalation BEDTIME 01/13/21 08/28/22 mcg/dose blistr powdr for inhalation (Meghann Inhub) omeprazole 20 mg capsule,delayed 20 mg PO DAILY 01/13/21 08/28/22 release Previous Rx's Medication Instructions Recorded apixaban 5 mg tablet (Eliquis) 5 mg PO BID #60 tabs 01/14/21 metoprolol tartrate 50 mg tablet 50 mg PO BID #60 tabs 03/10/21 diltiazem HCl 120 mg 120 mg PO DAILY #30 caps 04/08/21 capsule,extended release 24 hr amoxicillin 500 mg-potassium 1 tab PO BID 7 days #14 tabs 08/28/22 clavulanate 125 mg tablet (Augmentin) oxycodone-acetaminophen 5 mg-325 1 tab PO Q6H PRN pain (scale score 08/28/22 mg tablet (Percocet) 4-6) #28 tabs azithromycin 250 mg tablet 250 mg PO DAILY #4 tabs 09/16/22 prednisone 20 mg tablet 40 mg PO DAILY #8 tabs 09/16/22 Allergies Allergy/AdvReac Type Severity Reaction Status Date / Time No Known Allergies Allergy Unknown Verified 09/22/22 08:40 Review of Systems Review of Systems: CONSTITUTIONAL: Denies weight loss, fever and chills. HEENT: Denies changes in vision and hearing. RESPIRATORY: + SOB - cough. CV: Denies palpitations no CP. GI: Denies abdominal pain, nausea, vomiting and diarrhea. : + dysuria and urinary frequency. MSK: Denies myalgia and joint pain. SKIN: Denies rash and pruritus. NEUROLOGICAL: Denies headache and syncope. PSYCHIATRIC: Denies recent changes in mood. Denies anxiety and depression. All other ROS are negative unless in HPI [facility] Past Medical History Medical History Atrial fibrillation with RVR COPD (chronic obstructive pulmonary disease) GERD (gastroesophageal reflux disease) HTN (hypertension) No known health problems PAF (paroxysmal atrial fibrillation) Surgical History No pertinent past surgical history Social History Social History Household Members: Spouse Housing: Apartment Do you presently have visiting nurse or other home services: No Alcohol intake: never Patient Tobacco Use Status: Former Tobacco user Quit Date: 2016 Smoked in Last 30 Days: No Use of substances other than those prescribed or required for medical reasons: No Advance Directives: No Advance Directives Information Provided: Yes service: No Current occupational status: retired Physical Exam ED Vital Signs: Vital Signs - 24 hr 09/22/22 08:35 09/22/22 10:04 09/22/22 12:08 Temperature 97.1 F 98.2 F Pulse Rate 100 87 80 Respiratory Rate 22 H 12 16 Blood Pressure 136/90 H 117/84 102/87 Pulse Oximetry 100 98 97 Oxygen Delivery Method Room Air Room Air Room Air BMI result Body Mass Index 25.4 GEN: Well developed, no acute distress, alert, oriented HEENT: Normocephalic, atraumatic, normal external ears, nose appears normal, no oropharyngeal edema or exudates Eyes: Normal to appearance Neck: Supple, no lymphadenopathy Respiratory: Talks in complete sentences, no respiratory distress, clear to auscultation bilaterally Cardiovascular: Regular rate and rhythm, no murmurs rubs or gallops Abdomen: Soft, nontender, nondistended, no guarding, no rebound Back: No CVA tenderness Extremities: No clubbing cyanosis or edema Neurologic: No focal neurologic deficits, cranial nerves 2-12 intact, strength is 5/5 bilaterally Skin: No rash Course Course Course Narrative: The workup is currently in nearly complete. The CT scan of the sinuses did not reveal any acute abnormalities. Laboratory analysis showed mild hyponatremia but no other significant abnormalities contributing to his symptoms. I did speak with the son who now reports that he has been having some urinary complaint issues. Will check urinalysis. Regardless, it appears patient would be appropriate for discharge with or without antibiotics depending on his urinalysis. This was discussed with family. They are comfortable with the plan. I would refer back to the primary care provider within the next 1-2 weeks. Reevaluation(s) Reevaluation #1: The workup is complete. There is no evidence of urinary tract infection. I will refer the patient Pulmonary Medicine. On top that had been recommended close follow-up with patient's primary care provider specially given the weight loss. I recommended supplementing his diet with boost or [place] or Ensure 3 times daily. Also have recommend the addition of a multivitamin. Time: 13:55 Medical Decision Making Medical Decision Making [facility] Narrative: Patient presents with difficulty breathing/sinus congestion. His lungs are clear to auscultation bilaterally there are certainly some erythematous changes to the nasal mucosa but no definite polyp her turbinate enlargement. He has no wheezing or stridor. Chest x-rays have already been performed in daughter does not want have another 1. I do not believe he warrants this at all. It appears that his symptoms are predominantly located sinus related area/nasal cavity. He has had no imaging studies of the sinuses will order that today. There is also been reports of weight lost about 9 lb in the last month. He does appear to have decreased appetite. Will order routine laboratory analysis to make sure there are no significant electrolyte abnormalities. Differential diagnosis includes sinusitis, nasal polyp, sinus congestion, mucosal edema, dyspnea, bronchitis, viral syndrome Differential Diagnosis Differential Diagnoses: The differential diagnosis associated with the presentation includes (See above) Admission/Observation Consideration of admission/observation: Escalation of care including admission/observation considered Lab Data [facility] Lab Attestation statement: I reviewed the patient's lab results. 09/22/22 10:52 09/22/22 10:52 Labs: Lab Results 09/22/22 09/22/22 09/22/22 Range/Units 10:52 10:52 12:53 WBC 10.5 (4.8-10.8) X10*3/uL RBC 4.94 (4.60-5.80) X10*6/uL Hgb 13.9 L (14.0-18.0) g/dl Hct 43.3 (42.0-52.0) % MCV 87.7 (80.0-98.0) fL MCH 28.1 (27.0-33.0) pg MCHC 32.1 (31.0-36.0) g/dl RDW 13.2 (11.0-16.0) % Plt Count 227 (160-400) X10*3/uL MPV 11.3 (9.4-12.4) fL Immature Gran % (Auto) 0.6 H (0.0-0.4) % Neut % (Auto) 74.7 H (45-73) % Lymph % (Auto) 14.3 L (20-40) % [place] % (Auto) 9.6 (2-11) % Eos % (Auto) 0.7 (0-4) % Baso % (Auto) 0.1 (0-2) % Lymph # (Auto) 1.5 (1.2-4.9) X10*3/uL [place] # (Auto) 1.0 (0.1-1.2) X10*3/uL Eos # (Auto) 0.1 (0.0-0.4) X10*3/uL Baso # (Auto) 0.0 (0.0-0.2) X10*3/uL Abs Immat Gran (auto) 0.06 H (0.00-0.03) X10*3/uL Absolute Neuts (auto) 7.8 (2.0-8.3) x10*3/uL Absolute Nucleated RBC 0.000 (0.0-0.012) X10*3/uL Nucleated RBC % (auto) 0.0 (0.0-0.2) /100WBC Sodium 133 L (135-145) mmol/L Potassium 4.4 (3.3-5.1) mmol/L Chloride 101 (96-108) mmol/L Carbon Dioxide 25 (22-29) mmol/L Anion Gap 11 L (12-20) BUN 23 H (9-16) mg/dL Creatinine 1.04 (0.5-1.4) mg/dL Estim Creat Clear Calc 49.4 Estimated GFR > 60 Random Glucose 112 (60-115) mg/dL Calcium 9.5 (8.4-10.2) mg/dL Total Bilirubin 0.9 (0.0-1.0) mg/dL AST 14 (5-37) U/L ALT 18 (0-40) U/L Alkaline Phosphatase 56 (39-117) U/L Total Protein 6.8 (6.5-8.0) g/dL Albumin 3.9 (3.5-5.0) g/dL TSH 1.05 (0.32-4.0) uIU/mL Urine Color Yellow Urine Appearance Clear Urine pH 7.0 (5.0-9.0) Ur Specific [place] 1.010 (1.005-1.025) Urine Protein Trace (Neg-Trace) mg/dL Urine Glucose (UA) Negative (Negative) mg/dL Urine Ketones Negative (Negative) mg/dL Urine Blood Trace H (Negative) Urine Nitrite Negative (Negative) Ur Leukocyte Esterase Negative (Negative) Urine RBC 0-2 (0-2) /HPF Urine WBC 0-5 (0-5) /HPF Ur Squamous Epith Cells 0-2 (0-2) /HPF Urine Bacteria None Seen (None Seen) Hyaline Casts 3-5 (0-2) /LPF Independent Interpretation I performed an independent interpretation of an: CT Scan (Sinuses: Deviated septum some mild left-sided paranasal mucosal thickening, no air-fluid levels) Radiology Impression Discussion of test interpretation with radiology: I have reviewed the radiologist's reading. Radiologist Impression: CT/CT sinus wo IV con IMPRESSION: No acute imaging abnormalities. No evidence of active inflammation of the paranasal sinuses. The ostiomeatal units are patent and there are no air-fluid levels.? ? Dictated By: Phuc Edwards MD Signed By: <Electronically signed by Phuc Edwards MD in OV> 09/22/22 1132 Independent Historian Clinical information obtained from an independent historian. History obtained from or confirmed by: Other (Daughter and son) Prescription Management I considered prescription management with: Pain Medication and Antibiotic Discharge Plan Discharge Clinical Impression: Nasal congestion, Shortness of breath, Dysuria, Adult failure to thrive Patient Disposition: Home, Self-Care Instructions: Dysuria (ED), Failure to Thrive in Older Adults (ED), How to Use Nasal Phyllis (ED), Shortness of Breath (ED) Additional Instructions: recommend Multivitamin daily, supplement diet with Ensure, Boost or [place] 2-3 times daily. Close follow up with with PMD regardingrapid weight loss. Prescriptions: No Action metoprolol tartrate 50 mg tablet 50 mg PO BID Qty: 60 5RF omeprazole 20 mg capsule,delayed release(DR/EC) 20 mg PO DAILY albuterol sulfate 90 mcg/actuation HFA aerosol inhaler 1 puff inhalation QID PRN (Reason: wheezing) fluticasone propion-salmeterol [Wixela Inhub] 500-50 mcg/dose blister with device 1 puff inhalation BEDTIME Eliquis 5 mg tablet 5 mg PO BID Qty: 60 0RF Hold Instructions: Resume on 08/30/22. hold until 2 days post operative oxycodone-acetaminophen [Percocet] 5-325 mg tablet 1 tab PO Q6H PRN (Reason: pain (scale score 4-6)) Qty: 28 0RF Rx Instructions: Partial Fill upon patient request. amoxicillin-pot clavulanate [Augmentin] 500-125 mg tablet 1 tab PO BID 7 Days Qty: 14 0RF azithromycin 250 mg tablet 250 mg PO DAILY Qty: 4 0RF prednisone 20 mg tablet 40 mg PO DAILY Qty: 8 0RF diltiazem HCl 120 mg capsule,extended release 24hr 120 mg PO DAILY Qty: 30 5RF Referrals: Junito Peña MD [Primary Care Provider] - 1 week Print Language: Belarusian
[2022-09-22 12:08] VITALS: BP 102/87; PULSE 80; RESP 16; TEMP 36.8; O2SAT 97
[2022-09-22 13:02] LABS: Appearance Urine Clear; Color Urine Yellow; Glucose Urine UA Negative (Negative); Leukocyte Esterase Urine Negative (Negative); Nitrite Urine Negative (Negative); UMIC TRIGGER UACC YES; Urine Blood Trace (Negative); Urine Ketones Negative (Negative); Urine Protein Trace mg/dL (Neg-Trace)
[2022-09-22 13:04] LABS: Bacteria Urine None Seen (None Seen); RBC Urine 0-2 /HPF (0-2); Squamous Epithelial Cell Urine 0-2 /HPF (0-2); WBC Urine 0-5 /HPF (0-5)
== END 2022-09-22 14:31 | disposition home or self-care (01) ==
PROVIDERS: Emergency Provider Emergency Medicine; PCP Family Medicine
DX: R09.81 Nasal congestion (principal); R06.02 Shortness of breath; R30.0 Dysuria; R62.7 Adult failure to thrive; Z68.25 Body mass index [BMI] 25.0-25.9, adult; I48.0 Paroxysmal atrial fibrillation; I10 Essential (primary) hypertension; Z79.899 Other long term (current) drug therapy; Z79.01 Long term (current) use of anticoagulants
CPT/HCPCS: 36415; 70486; 80053; 81001; 81003; 84443; 85025; 99284

== ENCOUNTER 2022-10-01 14:30 | Outpatient (RCR) | payer OTHER, MEDICAID, SELFPAY ==
--- NOTE | 2022-10-16 13:56 | MHC.OT.DC ---
[address] [phone] F: [phone] Occupational Therapy Discharge Note Patient Name: Miguelito Barclay Provider: Balta Best Diagnosis: amputation of right middle finger distal phalanx Nail bed reconstruction of right long finger Date of Surgery: 08/28/22 Date of Evaluation: 09/15/22 Date of Discharge: Treatments to Date: 3 Cancellations to Date: 1 No Shows to Date: 2 Discharge Status: Improved Function Independent with HEP Visit Non-compliance Discharge Summary: Pt seen 1x wk per pt request. 1x cancelled due to 15 min late. Last visits wounds closing without any signs of infection. ROM improving WFL. Unable to use right hand with planting seeds (bandaging on digit) or heavy use. Pt with some difficulty following HEP but WFL. [facility] Pt no showed last few scheduled appointments Electronically Signed By: Megan Paulino OT CHT CLT Reviewed/agree with student documentation: Therapist: Please Sign and return to therapist, thank you for your referral.
== END 2022-10-16 13:57 | disposition home or self-care (01) ==
LOC: HO.OT 14:30
PROVIDERS: PCP Family Medicine; Visit Provider Physician Assistant
DX: S68.620D Partial traumatic transphalangeal amputation of right index finger, subsequent encounter (principal)
CPT/HCPCS: 97110; 97140; 97166; 97530

== ENCOUNTER 2022-10-07 13:07 | Outpatient (AMB) | payer OTHER, SELFPAY ==
--- NOTE | 2022-10-07 13:14 | MHC.OFFVIS ---
Intake Vital Signs 10/07/22 13:16 Height 5 ft 7 in Weight 162 lb BMI 25.4 Intake Visit Reasons: PO - revision amp rt MF, 08/28/22 Intake Note: Miguelito an 82 year old male who presents today for a post operative ring finger and right middle finger revision amputation, 08/28/22.?Patient reports he is doing well, wound is healing good. He has no concerns today. Allergies No Known Allergies Allergy (Unknown, Verified 10/07/22 13:16) HPI PO - revision amp rt MF, 08/28/22 HPI Details 82-year-old male who returns to the office today for post-op wound check of right middle finger revision amputation, 08/28/22. He states he has no pain and is doing well overall. He continues to work with occupational therapy with benefits. He has no concerns today. [facility] Medical History Atrial fibrillation with RVR COPD (chronic obstructive pulmonary disease) GERD (gastroesophageal reflux disease) HTN (hypertension) No known health problems PAF (paroxysmal atrial fibrillation) Surgical History No pertinent past surgical history Social History Household Members: Spouse Housing: Apartment Do you presently have visiting nurse or other home services: No Alcohol intake: never Patient Tobacco Use Status: Former Tobacco user Quit Date: 2016 service: No Current occupational status: retired Review of Systems Const All systems reviewed & are unremarkable except as noted in HPI and below Physical Exam Vital Signs: BMI result Body Mass Index 25.4 Extrem Other: Right hand: Digits are well healed. There are no open areas. He can extend and he is able to make a fist, however his index and middle finger are about a centimeter out off of the palmar crease. He has full sensation. 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 He will increase activity as symptoms allow. If symptoms persist or worsens, patient will contact the office, otherwise follow-up as needed. Patient Instructions: Scribed for Balta Best PA-C, by Aguila Estrella medical assisting program director, on 10/07/2022 at 1:15 PM Balta MEZA PA-C, have personally reviewed and agree with the information entered by the scribe. Coding Level of Care Code Est Pt Level 3 (18939) Diagnoses Partial traumatic amputation of finger through phalanx S68.629A
[2022-10-07 13:16] VITALS: BMI 25.4
== END 2022-10-07 13:26 | disposition home or self-care (01) ==
PROVIDERS: PCP Family Medicine; Visit Provider Physician Assistant
DX: S68.629A Partial traumatic transphalangeal amputation of unspecified finger, initial encounter (principal)
CPT/HCPCS: 99024

== ENCOUNTER → 2022-10-07 13:07 | Outpatient (BNVA) | payer OTHER, SELFPAY | PROVIDERS: PCP Family Medicine; Visit Provider Physician Assistant ==

== ENCOUNTER 2022-10-30 09:06 | Outpatient (AMB) | payer OTHER, SELFPAY ==
--- NOTE | 2022-10-30 09:28 | MHC.OFFWIV ---
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 Patient is accompanied by his daughter who is translating. Patient is reporting pain on the left lower back radiating into the front. Symptoms started 2 days ago. Pain is worse on bending forward and bending sideways. Reports no change in bowel habits. No urinary difficulties. No fevers or chills. PFSH Medical History Atrial fibrillation with RVR COPD (chronic obstructive pulmonary disease) GERD (gastroesophageal reflux disease) HTN (hypertension) No known health problems PAF (paroxysmal atrial fibrillation) Surgical History No pertinent past surgical history Social History Household Members: Spouse Housing: Apartment Do you presently have visiting nurse or other home services: No Alcohol intake: never Patient Tobacco Use Status: Former Tobacco user Quit Date: 2016 service: No Current occupational status: retired Physical Exam Vital Signs: Last Vital Signs Temp 97.9 F 10/30/22 09:29 Pulse 76 10/30/22 09:29 BP 120/80 10/30/22 09:29 Pulse Ox 95 10/30/22 09:29 Oxygen Delivery Method Room Air 10/30/22 09:29 Const General: cooperative and healthy appearing Nutritional Appearance: well nourished Orientation/consciousness: patient oriented x3 Limitations: no limitations HEENT Head: Yes normal to inspection Eyes General: appearance normal, both eyes and all related structures Neck Neck: Yes normal visual inspection Chest Chest palpation & inspection: normal palpation of entire chest wall Resp Effort & Inspection: normal respiratory effort GI Inspection: Yes normal to inspection Palpation (GI): No hepatosplenomegaly present Auscultation: normal bowel sounds Back/Spine/Pelvis Other: Back: No spinal tenderness. Minimal CVA discomfort. Neuro General: patient oriented x3 Results AMB Urinalysis, Automated UA Leukoctes 0 Ga/uL Last Edit by Cecilia Franco [facility] on 10/30/22 10:08 UA Nitrite Negative Last Edit by AlejandraJess Franco [facility] on 10/30/22 10:08 UA Urobilinogen 0.2 mg/dL Last Edit by AlejandraJess Franco [facility] on 10/30/22 10:08 UA Protein 0 mg/dL Last Edit by [facility] on 10/30/22 10:08 UA pH 7.0 Last Edit by AlejandraJess Franco [facility] on 10/30/22 10:08 UA Blood 0 Manuel/uL Last Edit by [facility] Joan [facility] on 10/30/22 10:08 UA Specific [place] 1.010 Last Edit by AlejandraJess Franco [facility] on 10/30/22 10:08 UA Ketone Negative Last Edit by AlejandraJess Franco [facility] on 10/30/22 10:08 UA Bilirubin 0 mg/dL Last Edit by [facility] on 10/30/22 10:08 UA Glucose 0 mg/dL Last Edit by AlejandraJess Franco [facility] on 10/30/22 10:08 Assessment & Plan Assessment & Plan (1) Low back pain: Code(s): M54.50 - Low back pain, unspecified Plan: Anti-inflammatories and muscle relaxant called in. If symptoms do not improve to follow-up here. Coding Level of Care Code Est Pt Level 4 (30842) Diagnoses Low back pain M54.50
[2022-10-30 09:29] VITALS: BP 120/80; PULSE 76; TEMP 36.6; O2SAT 95
== END 2022-10-30 10:11 | disposition home or self-care (01) ==
PROVIDERS: PCP Family Medicine; Visit Provider Internal Medicine
DX: M54.50 Low back pain, unspecified (principal)
CPT/HCPCS: 81003; 99214

== ENCOUNTER 2022-10-30 19:01 | Emergency (ER) | payer OTHER, SELFPAY ==
--- NOTE | ~2022-10-30 | CT_ITS ---
EXAMINATION: CT ABDOMEN AND PELVIS WITHOUT CONTRAST CLINICAL INFORMATION: Left flank pain COMPARISON: None available. TECHNIQUE: Multidetector volumetric imaging was performed from the superior aspect of the liver through the pubic symphysis. Sagittal and coronal reformatted images were obtained on the technologist's workstation. This CT examination was performed using dose optimization techniques as appropriate, variously including the following: *Automated exposure control *Adjustment of mA and/or kV according to patient size (this includes techniques or standardized protocols for targeted exams where dose is matched to indication/reason for exam; i.e. extremities or head) *Use of iterative reconstruction technique DLP: 542 mGy-cm FINDINGS: LUNG BASES: The visualized lung bases are clear. Upper normal heart size. LIVER, GALLBLADDER, AND BILIARY TREE: The liver is normal in size, shape, and attenuation. No focal hepatic lesion or biliary ductal dilatation is present. The gallbladder is contracted PANCREAS: Unremarkable. SPLEEN: Unremarkable. ADRENAL GLANDS: Unremarkable. KIDNEYS AND URETERS: The kidneys are normal in size, shape, and attenuation. No hydronephrosis, hydroureter, or calculi seen. No perinephric stranding. BLADDER: Unremarkable. GASTROINTESTINAL TRACT: Moderate stool burden. Mild diverticulosis of the colon. The small and large bowel are otherwise unremarkable. The appendix is unremarkable. Slightly distended fluid-filled stomach. Small hiatal hernia. ABDOMINAL WALL: Fat in the left inguinal canal. LYMPH NODES: Normal. VASCULAR: Atherosclerotic disease. No aneurysm. PELVIC VISCERA: Unremarkable. OSSEOUS STRUCTURES: Degenerative changes of the spine. CT/CT abdomen pelvis wo IV con IMPRESSION: Mild diverticulosis. No evidence of diverticulitis. Constipation. Slightly distended fluid-filled stomach. Small hiatal hernia. Fleischner guidelines were followed.
--- NOTE | 2022-10-30 19:36 | ED_ITS ---
HPI - Abdominal Pain General Chief Complaint: Abdominal Pain Stated Complaint: abdominal pain Time Seen by Provider: 10/30/22 22:09 Source: patient, family (The daughter acting as market reporter) and RN notes reviewed Mode of arrival: ambulatory Limitations: language barrier (Patient declines this staff interpreting services) History of Present Illness HPI narrative: 82-year-old male presents for evaluation of left lower back pain Patient reports he has had the pain for the last 4 days Denies any injury. His pain does not radiate He denies any associated symptoms including nausea vomiting, diarrhea, urinary complaints He rates his pain as 8/10. He saw his PCP earlier today who felt he had a muscle strain and discharged him with cyclobenzaprine No other complaints or concerns at this time Related Data Home Medications Medication Instructions Recorded Confirmed albuterol sulfate 90 mcg/actuation 1 puff inhalation QID PRN wheezing 01/13/21 10/30/22 aerosol inhaler fluticasone 500 mcg-salmeterol 50 1 puff inhalation BEDTIME 01/13/21 10/30/22 mcg/dose blistr powdr for inhalation (Meghann Stewart) omeprazole 20 mg capsule,delayed 20 mg PO DAILY 01/13/21 10/30/22 release Previous Rx's Medication Instructions Recorded apixaban 5 mg tablet (Eliquis) 5 mg PO BID #60 tabs 01/14/21 metoprolol tartrate 50 mg tablet 50 mg PO BID #60 tabs 03/10/21 diltiazem HCl 120 mg 120 mg PO DAILY #30 caps 04/08/21 capsule,extended release 24 hr cyclobenzaprine 10 mg tablet 10 mg PO BEDTIME #14 tabs 10/30/22 prednisone 20 mg tablet 40 mg PO DAILY #10 tabs 10/30/22 valacyclovir 1 gram tablet 1,000 mg PO TID #20 tabs 10/30/22 Allergies Allergy/AdvReac Type Severity Reaction Status Date / Time No Known Allergies Allergy Unknown Verified 10/30/22 10:05 Review of Systems Constitutional: Denies chills and Denies fever(s) Cardiovascular: Denies chest pain and Denies dyspnea Respiratory: Denies cough and Denies dyspnea Gastrointestinal: Denies abdominal pain, Denies melena, Denies hematochezia, Denies constipation, Denies nausea and Denies vomiting Musculoskeletal: Reports back pain, Denies muscle weakness, Denies numbness and Denies tingling Skin/Breast: Reports rash Denies numbness and Denies tingling PMFSH Past Medical History Medical History Atrial fibrillation with RVR COPD (chronic obstructive pulmonary disease) GERD (gastroesophageal reflux disease) HTN (hypertension) No known health problems PAF (paroxysmal atrial fibrillation) Surgical History No pertinent past surgical history Social History Social History Household Members: Spouse Housing: Apartment Do you presently have visiting nurse or other home services: No Alcohol intake: never Patient Tobacco Use Status: Former Tobacco user Quit Date: 2016 Advance Directives: No Advance Directives Information Provided: Yes service: No Current occupational status: retired Physical Exam ED Vital Signs: Vital Signs - 24 hr 10/30/22 19:39 10/30/22 21:32 Temperature 98.4 F 98.7 F Pulse Rate 92 80 Respiratory Rate 18 16 Blood Pressure 142/79 H 132/75 Pulse Oximetry 97 97 Oxygen Delivery Method Room Air Room Air BMI result Body Mass Index 27.9 Const General: healthy appearing, comfortable, no acute distress, alert and awake Nutritional Appearance: well nourished Orientation/consciousness: patient oriented x3 HENMT Head: Yes normocephalic and Yes atraumatic Eyes Eyelids: Yes eyelids normal Conjunctivae: conjunctivae normal Sclerae: sclerae normal Corneas: corneas normal Pupils: Equal, round and reactive pupils present EOM: EOMs intact bilaterally Neck Neck: Yes full ROM Resp Effort & Inspection: normal respiratory effort, able to speak in complete sentences and not labored GI Inspection: No distended Palpation (GI): Soft to palpation, not firm, nontender, no guarding and not rigid Auscultation: normoactive bowel sounds Back/Spine/Pelvis Other: Tenderness in the left lumbar paraspinous region. No vertebral tenderness. Patient is able to ambulate independently without any difficulty Skin Other: Patient has a macular papular rash to the left flank that appears to be in a dermatome pattern. One area appears to be blistered in the center. No drainage or surrounding erythema General skin exam: elasticity normal Neuro General: patient oriented x3 Cranial nerves: Yes CN's II-XII intact bilaterally, Yes Equal, round and reactive pupils present and Yes Bilaterally intact EOM present Cognition (Neuro): normal cognition Extrem Other: Moving all extremities well without any obvious deformities Course Course Course Narrative: This is an RME: Additional HPI, ROS, PE not included below will be deferred to primary provider. This is a [id number]-male, with a past medical history of atrial fibrillation with RVR, COPD, GERD, HTN, presenting to the emergency department with a complaint of left flank pain. Pt was seen at [facility] in clinic this morning and was thought to be a muscle spasm, was given cyclobenzaprine which he has taking without any improvement. He had a normal urine. Patient has CVA tenderness bilaterally, left greater than right. Vitals stable. Plan: Labs, UA, CT abdomen and pelvis Medical Decision Making Medical Decision Making [facility] Narrative: 82-year-old male presents for evaluation of left lower back pain. His pain is reproducible on exam. Is likely musculoskeletal in origin. He also has a rash that is consistent with shingles. This possibly is unable to differentiate pain from the rash from his typical lower back pain. It is CT scan of the abdomen pelvis to evaluate for obstructive uropathy given the flank pain although this is less significant for constipation which was discussed with the patient and his daughter. Will discharge the patient with treatment for shingles as his rash is quite consistent with a shingles rash. He has cyclobenzaprine as previously prescribed by his PCP. Will avoid any narcotics as this would likely worsen his constipation Differential Diagnosis Differential Diagnoses: The differential diagnosis associated with the presentation includes Acute on chronic back pain Sciatica Radiculopathy Shingles varicella zoster Herpes zoster Lab Data [facility] Lab Attestation statement: I reviewed the patient's lab results. No leukocytosis. The patient has a mild anemia with a hemoglobin of 10.8 and hematocrit 34.0. Denies any black or bloody stool. Patient has no significant electrolyte abnormalities. Normal renal function, normal LFTs 10/30/22 19:53 10/30/22 19:53 Labs: Lab Results 10/30/22 10/30/22 10/30/22 Range/Units 19:53 19:53 19:59 WBC 8.1 (4.8-10.8) X10*3/uL RBC 3.85 L D (4.60-5.80) X10*6/uL Hgb 10.8 L D (14.0-18.0) g/dl Hct 34.0 L D (42.0-52.0) % MCV 88.3 (80.0-98.0) fL MCH 28.1 (27.0-33.0) pg MCHC 31.8 (31.0-36.0) g/dl RDW 13.5 (11.0-16.0) % Plt Count 246 (160-400) X10*3/uL MPV 10.7 (9.4-12.4) fL Immature Gran % (Auto) 0.2 (0.0-0.4) % Neut % (Auto) 58.9 (45-73) % Lymph % (Auto) 25.4 (20-40) % [place] % (Auto) 12.1 H (2-11) % Eos % (Auto) 3.0 (0-4) % Baso % (Auto) 0.4 (0-2) % Lymph # (Auto) 2.1 (1.2-4.9) X10*3/uL [place] # (Auto) 1.0 (0.1-1.2) X10*3/uL Eos # (Auto) 0.2 (0.0-0.4) X10*3/uL Baso # (Auto) 0.0 (0.0-0.2) X10*3/uL Abs Immat Gran (auto) 0.02 (0.00-0.03) X10*3/uL Absolute Neuts (auto) 4.8 (2.0-8.3) x10*3/uL Absolute Nucleated RBC 0.000 (0.0-0.012) X10*3/uL Nucleated RBC % (auto) 0.0 (0.0-0.2) /100WBC Sodium 139 (135-145) mmol/L Potassium 4.8 (3.3-5.1) mmol/L Chloride 106 (96-108) mmol/L Carbon Dioxide 23 (22-29) mmol/L Anion Gap 15 (12-20) BUN 26 H (9-16) mg/dL Creatinine 0.99 (0.5-1.4) mg/dL Estim Creat Clear Calc 56.5 Estimated GFR > 60 Random Glucose 125 H (60-115) mg/dL Calcium 9.2 (8.4-10.2) mg/dL Total Bilirubin 0.2 (0.0-1.0) mg/dL Direct Bilirubin < 0.2 (0.0-0.5) mg/dL AST 22 (5-37) U/L ALT 27 (0-40) U/L Alkaline Phosphatase 82 (39-117) U/L Total Protein 6.6 (6.5-8.0) g/dL Albumin 3.8 (3.5-5.0) g/dL Lipase 38 (8-78) U/L Urine Color Yellow Urine Appearance Clear Urine pH 6.0 (5.0-9.0) Ur Specific [place] 1.025 (1.005-1.025) Urine Protein Negative (Neg-Trace) mg/dL Urine Glucose (UA) Negative (Negative) mg/dL Urine Ketones Negative (Negative) mg/dL Urine Blood Negative (Negative) Urine Nitrite Negative (Negative) Ur Leukocyte Esterase Negative (Negative) Medications Administered Discontinued Medications Generic Name Dose Route Start Last Admin Trade Name Ramonq PRN Reason Stop Dose Admin Prednisone 40 mg 10/30/22 23:05 10/30/22 23:26 Prednisone 20 Mg Tablet PO 10/30/22 23:06 40 mg ONCE ONE Administration Valacyclovir HCl 1,000 mg 10/30/22 23:05 10/30/22 23:26 Valacyclovir Hcl 1,000 Mg Tablet PO 10/30/22 23:06 1,000 mg ONCE ONE Administration Discharge Plan Discharge Clinical Impression: Lower back pain, Shingles Patient Disposition: Home, Self-Care Instructions: Shingles (ED), Acute Low Back Pain (ED) Additional Instructions: The rash on your abdomen is consistent with a shingles rash Take the valacyclovir and prednisone as directed You may continue to use a cyclobenzaprine as needed for back pain He you should use an [id number] stool softener such as MiraLax to help with the constipation that was seen on your CT scan Your blood work was reassuring Prescriptions: New prednisone 20 mg tablet 40 mg PO DAILY Qty: 10 0RF valacyclovir 1 gram tablet 1,000 mg PO TID Qty: 20 0RF No Action metoprolol tartrate 50 mg tablet 50 mg PO BID Qty: 60 5RF omeprazole 20 mg capsule,delayed release(DR/EC) 20 mg PO DAILY albuterol sulfate 90 mcg/actuation HFA aerosol inhaler 1 puff inhalation QID PRN (Reason: wheezing) fluticasone propion-salmeterol [Wixela Inhub] 500-50 mcg/dose blister with device 1 puff inhalation BEDTIME Eliquis 5 mg tablet 5 mg PO BID Qty: 60 0RF Hold Instructions: Resume on 08/30/22. hold until 2 days post operative cyclobenzaprine 10 mg tablet 10 mg PO BEDTIME Qty: 14 0RF diltiazem HCl 120 mg capsule,extended release 24hr 120 mg PO DAILY Qty: 30 5RF
[2022-10-30 19:39] VITALS: BP 142/79; PULSE 92; RESP 18; TEMP 36.9; O2SAT 97; BMI 27.9
[2022-10-30 19:58] LABS: MANUAL DIFF FLAG NO
[2022-10-30 20:00] LABS: Basophils Percent Auto 0.4 % (0-2); Eosinophils Absolute Auto 0.2 X10*3/uL (0.0-0.4); Hemoglobin 10.8 g/dl (14.0-18.0); Imm Gran Abs Auto 0.02 X10*3/uL (0.00-0.03); Imm Gran Pct Auto 0.2 % (0.0-0.4); Lymphocytes Absolute Auto 2.1 X10*3/uL (1.2-4.9); Lymphocytes Percent Auto 25.4 % (20-40); Mean Corpuscular HGB Conc 31.8 g/dl (31.0-36.0); Mean Corpuscular Hemoglobin 28.1 pg (27.0-33.0); Mean Corpuscular Volume 88.3 fL (80.0-98.0); Mean Platelet Volume 10.7 fL (9.4-12.4); Monocytes Percent Auto 12.1 % (2-11); Neutrophils Absolute Auto 4.8 x10*3/uL (2.0-8.3); Neutrophils Percent Auto 58.9 % (45-73); Platelet Count 246 X10*3/uL (160-400); Red Blood Count 3.85 X10*6/uL (4.60-5.80); Red Cell Distribution Width 13.5 % (11.0-16.0); White Blood Count 8.1 X10*3/uL (4.8-10.8)
--- NOTE | 2022-10-30 20:02 | MHC.EDTECH ---
PATIENT BLOOD DRAWN AND URINE SAMPLE COLLECTED AND SENT TO LAB .
[2022-10-30 20:15] LABS: Appearance Urine Clear; Color Urine Yellow; Glucose Urine UA Negative (Negative); Leukocyte Esterase Urine Negative (Negative); Nitrite Urine Negative (Negative); Specific Gravity - Urine 1.025 (1.005-1.025); Urine Blood Negative (Negative); Urine Ketones Negative (Negative); Urine Protein Negative (Neg-Trace)
[2022-10-30 20:28] LABS: Alanine Aminotransferase 27 U/L (0-40); Albumin Level 3.8 g/dL (3.5-5.0); Alkaline Phosphatase 82 U/L (39-117); Anion Gap 15 (12-20); Aspartate Amino Transferase 22 U/L (5-37); Bilirubin Direct < 0.2 mg/dL (0.0-0.5); Bilirubin Total 0.2 mg/dL (0.0-1.0); Blood Urea Nitrogen 26 mg/dL (9-16); Calcium 9.2 mg/dL (8.4-10.2); Carbon Dioxide 23 mmol/L (22-29); Chloride 106 mmol/L (96-108); Creatinine Clr Calc Pharmacy 56.5; Estimated Glomerular Filt Rate > 60; Glucose Random 125 mg/dL (60-115); Lipase 38 U/L (8-78); Potassium 4.8 mmol/L (3.3-5.1); Sodium 139 mmol/L (135-145); Total Protein 6.6 g/dL (6.5-8.0)
[2022-10-30 21:32] VITALS: BP 132/75; PULSE 80; RESP 16; TEMP 37.1; O2SAT 97
[2022-10-30] MEDS: valACYclovir HCL 1,000 MG TABLET 1000 MG PO (23:26)
[2022-10-30] MEDS: predniSONE 20 MG TABLET 40 MG PO (23:26)
== END 2022-10-30 23:30 | disposition home or self-care (01) ==
PROVIDERS: Physician Assistant Medical; Emergency Provider Emergency Medicine; PCP Family Medicine
DX: B02.9 Zoster without complications (principal); M54.50 Low back pain, unspecified; R10.2 Pelvic and perineal pain; Z79.899 Other long term (current) drug therapy
CPT/HCPCS: 36415; 74176; 80048; 80076; 81003; 83690; 85025; 99283; 99284

== ENCOUNTER 2022-11-25 17:51 | Emergency (ER) | payer OTHER, SELFPAY ==
[2022-11-25 18:03] VITALS: BP 127/76; PULSE 93; RESP 18; TEMP 36.6; O2SAT 97; BMI 27.2
--- NOTE | 2022-11-25 18:03 | ED_ITS ---
HPI - Abdominal Pain General Chief Complaint: Urogenital-Male Stated Complaint: left side abd and pain Time Seen by Provider: 11/25/22 20:38 Source: patient Mode of arrival: ambulatory Limitations: no limitations History of Present Illness HPI narrative: Patient is an 82-year-old male who presents emergency department for evaluation of pain to the left back/lower abdomen. He states onset was approximately 1 week ago. He feels as though he cannot move due to the degree of pain it is described as a tightness sensation. He was recently diagnosed with shingles and completed a course of prednisone and Valtrex but his pain has been worsening. He denies any history of similar pain in the past prior to his shingles diagnosis. He denies pain to the upper abdomen a right abdomen. denies constipation, diarrhea, hematochezia, melena, nausea, vomiting, chest pain, shortness of breath, difficulty breathing, dysuria, urinary frequency/urgency/hesitancy, hematuria. Related Data Home Medications Medication Instructions Recorded Confirmed albuterol sulfate 90 mcg/actuation 1 puff inhalation QID PRN wheezing 01/13/21 10/30/22 aerosol inhaler fluticasone 500 mcg-salmeterol 50 1 puff inhalation BEDTIME 01/13/21 10/30/22 mcg/dose blistr powdr for inhalation (Meghann Stewart) omeprazole 20 mg capsule,delayed 20 mg PO DAILY 01/13/21 10/30/22 release Previous Rx's Medication Instructions Recorded apixaban 5 mg tablet (Eliquis) 5 mg PO BID #60 tabs 01/14/21 metoprolol tartrate 50 mg tablet 50 mg PO BID #60 tabs 03/10/21 diltiazem HCl 120 mg 120 mg PO DAILY #30 caps 04/08/21 capsule,extended release 24 hr cyclobenzaprine 10 mg tablet 10 mg PO BEDTIME #14 tabs 10/30/22 prednisone 20 mg tablet 40 mg (2 x 20 mg) PO DAILY #10 tabs 10/30/22 valacyclovir 1 gram tablet 1,000 mg PO TID #20 tabs 10/30/22 Allergies Allergy/AdvReac Type Severity Reaction Status Date / Time No Known Allergies Allergy Unknown Verified 10/30/22 10:05 Review of Systems Review of Systems Yes all other systems are reviewed and are negative [facility] Past Medical History Source: old records reviewed Medical History PAF (paroxysmal atrial fibrillation) Atrial fibrillation with RVR GERD (gastroesophageal reflux disease) HTN (hypertension) COPD (chronic obstructive pulmonary disease) No known health problems Surgical History No pertinent past surgical history Social History Social History Household Members: Spouse Housing: Apartment Do you presently have visiting nurse or other home services: No Alcohol intake: never Patient Tobacco Use Status: Former Tobacco user Quit Date: 2016 Advance Directives: No Advance Directives Information Provided: No service: No Current occupational status: retired Physical Exam ED Vital Signs: Vital Signs - 24 hr 11/25/22 18:03 11/25/22 19:48 Temperature 97.8 F 98.3 F Pulse Rate 93 86 Respiratory Rate 18 16 Blood Pressure 127/76 138/89 Pulse Oximetry 97 100 Oxygen Delivery Method Room Air Room Air BMI result Body Mass Index 27.2 Appearance: Alert.?Oriented to person, place and time. No acute distress.?Normal affect. Eyes: Pupils equal, round and reactive to light.? ENT: Pharynx normal.?? Neck: Normal inspection.? Neck supple.?? CVS: Heart sounds normal. Normal heart rate and rhythm.? Pulses normal.?? Respiratory: No respiratory distress.? Lung sounds clear to auscultation bilaterally?? Abdomen: Soft and non-tender. Normoactive bowel sounds. ?Tenderness upon palpation over the left flank and lower abdomen. Resolving herpes zoster rash Skin: Skin warm and dry.? Normal skin color.? Extremities: No lower extremity edema.? Neuro: Moves all extremities spontaneously. Sensation intact bilaterally. Ambulates with normal steady gait. Course Course Course Narrative: RME: 82yo M w/PMHx A.fib RVR, GERD, Shingles a few weeks ago, c/o L flank pain radiating to low abdomen and back x1 week. Pain prohibiting patient from moving around described as tightening. Patient has had pain since Shingles dx but has been worsening. Denies urinary sx, N/V. Daughter admits patient finished course of Prednisone & Valtrex (Rx 10/31/22) +healing shingles rash to L flank/side and low abdomen. ?Post herpetic neuralgia vs stone or UTI/pyelo Labs, UA ordered Full HPI, ROS and PE to be performed by primary ED provider. Reevaluation(s) Reevaluation #1: As advised by nursing staff the patient left without completing treatment from the emergency department. The irrigation service technician attempted to obtain patient's blood work and he became very frustrated stating that he does not want anyone else to attempt to obtain his labs. Evidently they were unsuccessful in obtaining labs while he was in the waiting room. Patient stated that he has been in the emergency department for 10 hours and therefore he decided to leave, upon review it appears as though he has been in the emergency department for 3 hours. Nursing staff was unable to convince patient to stay and he left before my re- evaluation. Time: 21:14 Medical Decision Making Medical Decision Making MDM Narrative: Patient is an 82-year-old male with past medical history of atrial fibrillation, GERD, herpes zoster presenting to emergency department for evaluation of left flank/abdominal pain as per HPI. At the time of my examination see is agitating, stating that he has been here for a long time and nothing has been done for him. He is able to be redirected. Reviewed with patient possible etiologies for pain including post herpetic neuralgia versus intra-abdominal pain; possible renal colic, obstructive stone, UTI/pyelo, less likely gastrointestinal based on symptoms. Discussed with patient plan of care to obtain serum labs in addition to urinalysis to evaluate for signs of infection microscopic hematuria that might suggest urinary etiology verses post herpetic pain. Differential Diagnosis Differential Diagnoses: The differential diagnosis associated with the presentation includes (As noted above) Lab Data Patient refused for serum labs or urinalysis External Record Review External record reviewed: Prior outpatient labs Discharge Plan Discharge Clinical Impression: Flank pain Patient Disposition: Left W/O Completing Treatment Prescriptions: No Action metoprolol tartrate 50 mg tablet 50 mg PO BID Qty: 60 5RF omeprazole 20 mg capsule,delayed release(DR/EC) 20 mg PO DAILY albuterol sulfate 90 mcg/actuation HFA aerosol inhaler 1 puff inhalation QID PRN (Reason: wheezing) fluticasone propion-salmeterol [Wixela Inhub] 500-50 mcg/dose blister with device 1 puff inhalation BEDTIME Eliquis 5 mg tablet 5 mg PO BID Qty: 60 0RF Hold Instructions: Resume on 08/30/22. hold until 2 days post operative prednisone 20 mg tablet 40 mg PO DAILY Qty: 10 0RF valacyclovir 1 gram tablet 1,000 mg PO TID Qty: 20 0RF cyclobenzaprine 10 mg tablet 10 mg PO BEDTIME Qty: 14 0RF diltiazem HCl 120 mg capsule,extended release 24hr 120 mg PO DAILY Qty: 30 5RF
[2022-11-25 19:48] VITALS: BP 138/89; PULSE 86; RESP 16; TEMP 36.8; O2SAT 100
--- NOTE | 2022-11-25 20:44 | MHC.EDTECH ---
Nurse and PA aware that patient refused blood draw.
--- NOTE | 2022-11-25 20:46 | MHC.EDTECH ---
Patient dropped urine sample on floor.
--- NOTE | 2022-11-25 21:20 | PC.NURSE ---
Patient left without completing treatment stating that he had been here for 10 hours and I won't wait a minute more. Just prior to patient leaving [facility] had informed this nurse that the patient was refusing to have blood work drawn and that the PA was aware. Patient was well appearing at time of leaving, able to ambulate out of department independently accompanied by family.
== END 2022-11-25 21:33 | disposition left against medical advice (07) ==
PROVIDERS: Emergency Provider Internal Medicine; PCP Family Medicine
DX: R10.9 Unspecified abdominal pain (principal); Z87.891 Personal history of nicotine dependence; Z79.899 Other long term (current) drug therapy
CPT/HCPCS: 99283; 99284

== ENCOUNTER 2024-03-21 10:06 | Emergency (ER) | payer OTHER, SELFPAY ==
--- NOTE | ~2024-03-21 | XR_ITS ---
EXAMINATION: XR CHEST CLINICAL INFORMATION: cough COMPARISON: Several priors, most recently 09/16/2022. TECHNIQUE: 2 views of the chest were obtained. FINDINGS: The cardiac, hilar, and mediastinal contours are normal. The lungs are mildly hyperaerated, however clear bilaterally. There is no pneumothorax or pleural effusion. There is no focal osseous or soft tissue abnormality. XR/XR chest 2V IMPRESSION: No active pulmonary disease. No significant change. Electronically signed by: Ryan Laws MD 03/21/2024 11:51 AM JANA
[2024-03-21 10:11] VITALS: BP 158/74; PULSE 113; RESP 18; TEMP 36.8; O2SAT 95; BMI 28.0
--- NOTE | 2024-03-21 10:16 | ECG_ITS ---
Test Reason : dyspnea Blood Pressure : */* mmHG Vent. Rate : 107 BPM Atrial Rate : * BPM P-R Int : * ms QRS Dur : 88 ms QT Int : 354 ms P-R-T Axes : * 43 10 degrees QTcB Int : 472 ms Atrial fibrillation with rapid ventricular response Nonspecific ST and T wave abnormality Abnormal ECG When compared with ECG of 16-Sep-2022 16:57, No significant change was found Referred By: Generic ED Physician Electronically Signed By: MEJIA FALL MD
[2024-03-21 10:41] LABS: MANUAL DIFF FLAG NO
[2024-03-21 10:44] LABS: Basophils Percent Auto 0.3 % (0-2); Eosinophils Percent Auto 0.4 % (0-4); Hematocrit 39.6 % (42.0-52.0); Imm Gran Abs Auto 0.03 X10*3/uL (0.00-0.03); Imm Gran Pct Auto 0.4 % (0.0-0.4); Lymphocytes Absolute Auto 0.8 X10*3/uL (1.2-4.9); Lymphocytes Percent Auto 12.1 % (20-40); Mean Corpuscular HGB Conc 32.8 g/dl (31.0-36.0); Mean Corpuscular Hemoglobin 28.4 pg (27.0-33.0); Mean Corpuscular Volume 86.7 fL (80.0-98.0); Mean Platelet Volume 11.7 fL (9.4-12.4); Monocytes Absolute Auto 1.1 X10*3/uL (0.1-1.2); Monocytes Percent Auto 15.8 % (2-11); Neutrophils Absolute Auto 4.8 x10*3/uL (2.0-8.3); Platelet Count 192 X10*3/uL (160-400); Red Blood Count 4.57 X10*6/uL (4.60-5.80); Red Cell Distribution Width 13.1 % (11.0-16.0); White Blood Count 6.7 X10*3/uL (4.8-10.8)
[2024-03-21 11:03] LABS: Alanine Aminotransferase 14 U/L (0-40); Albumin Level 3.9 g/dL (3.5-5.0); Alkaline Phosphatase 72 U/L (39-117); Anion Gap 11 (12-20); Aspartate Amino Transferase 26 U/L (5-37); Bilirubin Total 0.5 mg/dL (0.0-1.0); Blood Urea Nitrogen 20 mg/dL (9-16); Calcium 8.6 mg/dL (8.4-10.2); Carbon Dioxide 24 mmol/L (22-29); Chloride 104 mmol/L (96-108); Creatinine Clr Calc Pharmacy 50.7; Estimated Glomerular Filt Rate > 60; Glucose Random 133 mg/dL (60-115); Potassium 4.4 mmol/L (3.3-5.1); Sodium 135 mmol/L (135-145); Total Protein 7.4 g/dL (6.5-8.0)
[2024-03-21 11:11] LABS: Troponin-I High Sensitivity 23.1 ng/L (<3.5-35.0)
[2024-03-21 11:41] LABS: Influenza A PCR POSITIVE (Negative); Influenza B PCR NEGATIVE (Negative); Resp Syncy Virus RNA Qual PCR NEGATIVE (Negative); SARS COV2 PCR INHOUSE NEGATIVE (Negative)
--- OUTSIDE RECORDS SUMMARY | 2024-03-21 12:10 | XMS_ITS | Data Portability ---
Author Organization [employer] [facility] - [facility] Address [address] [place] [phone] Care Team Providers Care Gate Guard Name Role Phone HIM CCA OTHER Assessment Encounter Date Assessment Date Assessment LastModified by Organization Details LastModified Time 09/09/2022 09/09/2022 I provided real -time medical direction via phone for this encounter, and was available for additional phone based assistance as needed. I have reviewed and agree with the Assessment and Plan as documented by the Instrument And Control Technician. Patient given the opportunity to ask questions. Advised if develops CP/severe SOB/turning blue/uncontrolle d n/v/d or black/bloody emesis or stool/ AMS/ syncope/ hi fever unresponsive to APAP to call 911- patient / family verbalized understanding of instructions to the medic [email or web address] Not available 09/09/2022 14:13:03 Plan of Treatment Reminders Order Date Submit Date Provider Last Modified By Organization Details Last Modified Time Details Appointments None recorded. Lab urinalysis, dipstick 2022 023 [email or web address] [facility], [address] [place] [address], [phone], 19:49:21 BMP, serum or plasma 2022 023 [email or web address] 0 [facility], [address] [place] [address], [address], 3 19:49:21 rapid flu (A+B) 2022 023 [email or web address] 0 [facility], [address] [place] [address], [address], 3 19:49:21 rapid SARS CoV 2 Ag, QL IA, respiratory specimen [email or web address] [facility], [address] [place] [address], [phone], 3 19:49:21 Referral None recorded. Procedures None recorded. Surgeries None recorded. Imaging electrocard iogram [email or web address] [facility], [address] [place] [address], [phone], 3 19:49:21 Medication Orders None recorded. Patient TargetsNo targets recorded. Patient Instructions Encounter Date Encounter Id Patient Instructions Last Modified By Organization Details Last Modified Time 09/09/2022 [id number] orthostatic vitals* [email or web address] Not available 09/09/2022 19:49:21 Reason for Referral None Reported. Results Created Date Observation Date Name Description Value Unit Range Abnormal Flag Note LastModifiedBy Organization Detail LastModifiedTime 09/10/1909/09/2022 BMP, serum or plasm a BUN 25 Not Available [facility] - [facility] [address], [phone], 09/09/2022 13:59:06 09/10/19 23 09/09/2022 BMP, serum or plasm a Ca I jaimee 1.19 Not Available Main - Inst [address], [address], 09/09/2022 13:59:06 09/10/19 23 09/09/2022 BMP, serum or plasm a CI- 103 Not Available Main - [facility] [address], [address], 09/09/2022 13:59:06 09/10/19 23 09/09/2022 BMP, serum or plasm a CRE 0.9 Not Available [facility] - [facility] [address], [address], 09/09/2022 13:59:06 09/10/19 23 09/09/2022 BMP, serum or plasm a GLU 116 Not Available Main - [facility] [address], [address], 09/09/2022 13:59:06 09/10/19 23 09/09/2022 BMP, serum or plasm a K+ 4.3 Not Available [facility] - [facility] [address], [address], 09/09/2022 13:59:06 09/10/19 23 09/09/2022 BMP, serum or plasm a Na+ 137 Not Available [facility] - [facility] [address], [address], 09/09/2022 13:59:06 09/10/19 23 09/09/2022 BMP, serum or plasm a tCO2 23 Not Available [facility] - [facility] [address], [address], 09/09/2022 13:59:06 09/10/19 23 09/09/2022 urina lysis , dipst ick Leukocytes neg Not Available [facility] - Inst[facility] [address] [place] [address], [address], 09/09/2022 13:59:03 09/10/19 23 09/09/2022 urina lysis , dipst ick Nitrite negati ve Not Available Main - Inst [address], [address], 09/09/2022 13:59:03 09/10/19 23 09/09/2022 urina lysis , dipst ick Urobilinogen neg Not Available Main - [facility] [address] [place] [address], [address], 09/09/2022 13:59:03 09/10/19 23 09/09/2022 urina lysis , dipst ick Protein neg Not Available Main - [facility] [address], [address], 09/09/2022 13:59:03 09/10/19 23 09/09/2022 urina lysis , dipst ick pH 5 Not Available Main - [facility] [address], [address], 09/09/2022 13:59:03 09/10/19 23 09/09/2022 urina lysis , dipst ick Blood neg Not Available Main - [facility] [address], [address], 09/09/2022 13:59:03 09/10/19 23 09/09/2022 urina lysis , dipst ick Specific [place] 1.005 Not Available Main - [facility] [address] [place] [address], [address], 09/09/2022 13:59:03 09/10/19 23 09/09/2022 urina lysis , dipst ick Ketone neg Not Available Main - [facility] [address], [address], 09/09/2022 13:59:03 09/10/19 23 09/09/2022 urina lysis , dipst ick Bilirubin neg Not Available Main - I nsted [address] [place] [address], [address], 09/09/2022 13:59:03 09/10/19 23 09/09/2022 urina lysis , dipst ick Glucose neg Not Available Main - [facility] [address], [address], 09/09/2022 13:59:03 09/10/19 23 09/09/2022 urina lysis , dipst ick Appearance clear Not Available Main - [facility] [address] [place] [address], [address], 09/09/2022 13:59:03 09/10/19 23 09/09/2022 urina lysis , dipst ick Color yellow Not Available Main - [facility] [address], [address], 09/09/2022 13:59:03 09/10/19 23 09/09/2022 rapid SARS CoV 2 Ag, QL IA, respi rator y speci men rapid SARS CoV 2 Ag, QL IA, respiratory specimen negati ve Not Available Main - [facility] ed [address] [place] [address], [address], 09/09/2022 13:59:22 09/10/19 23 09/09/2022 rapid flu (A+B) Flu negati ve Not Available Main - [facility] ed [address] [place] [address], [address], 09/09/2022 13:59:19 09/10/19 23 09/09/2022 elect fernando [email or web address] am No observ ation record ed. [email or web address] [facility] [address] [place] [address], [address], 09/09/2022 19:49:24 Result Notes None recorded. Procedures Surgical History None recorded. Imaging Results Imaging Date Name Status LastModified by Organization Details LastModified Time 09/09/[email or web address] [facility] [address] [place] [address], [address], 09/09/2022 19:49:24 Procedure Notes None recorded. Medical Equipment None Reported. Allergies No known drug allergies Medications Name Sig Start Date Stop Date Status Note LastModified by Organization Details LastModified Time simvastatin 40 mg tablet TAKE 1 TABLET BY MOUTH DAILY active Not Available Not Available No t Available oxycodone-lissette taminophen 5 mg-325 mg tablet TAKE 1 TABLET BY MOUTH EVERY 6 HOURS NEEDED FOR PAIN active Not Available Not Available No t Available omeprazole 20 mg capsule,delay ed release TAKE 1 CAPSULE BY MOUTH DAILY active Not Available Not Available No t Available azelastine 137 mcg (0.1 %) nasal spray USE 2 SPRAYS IN EACH NOSTRIL DAILY NEEDED FOR ALLERGIES active Not Available Not Available No t Available amoxicillin 500 mg-potassium clavulanate 125 mg tablet TAKE 1 TABLET BY MOUTH TWICE DAILY FOR 7 DAYS active Not Available Not Available No t Available Ventolin HFA 90 mcg/actuation aerosol inhaler INHALE 1 PUFF BY MOUTH FOUR TIMES DAILY NEEDED FOR WHEEZING active Not Available Not Available No t Available metoprolol tartrate 25 mg tablet TAKE 1 TABLET BY MOUTH TWICE DAILY active Not Available Not Available No t Available Allergy Relief (fexofenadine ) 180 mg tablet TAKE 1 TABLET BY MOUTH DAILY NEEDED FOR ALLERGY SYMPTOMS active Not Available Not Available No t Available Eliquis 5 mg tablet TAKE 1 TABLET BY MOUTH TWICE DAILY active Not Available Not Available No t Available Wixela Inhub 500 mcg-50 mcg/dose powder for inhalation INHALE 1 PUFF BY MOUTH TWICE DAILY. RINSE MOUTH AND THROAT AFTER USE active Not Available Not Available No t Available Vitals Date Recorded Heart rate Body temperature Body height Oxygen saturation Oxygen saturation in Arterial blood by Pulse oximetry Body weight Respiratory rate Systolic blood pressure Diastolic blood pressure Provider Name and Address Organization Details Last Updated DateTime 3 96 /min 96.8 [degF] 170.18 cm 99 % 99 % 62567.6 4 g 16 /min 145 mm[Hg] 89 mm[Hg] Not Available [email or web address] - production 3 20:08:34 Date Recorded Body temperature Oxygen saturation Oxygen saturation in Arterial blood by Pulse oximetry Heart rate Respiratory rate Systolic blood pressure Diastolic blood pressure Provider Name and Address Organization Details Last Updated DateTime 3 98.1 [degF] 98 % 98 % 71 /min 16 /min 158 mm[Hg] 80 mm[Hg] Not Available [email or web address] - production 3 13:40:31 Date Recorded Body height Provider Name an d Address Organization Details Last Updated DateTime 09/09/2022 170.18 cm Camilo Cruz [address] [place] [address],[address], [place], [address], [place] [facility] [employer] 09/09/2022 13:59:55 Date Recorded Heart rate Body height Oxygen saturation Oxygen saturation in Arterial blood by Pulse oximetry Body weight Body temperature Respiratory rate Systolic blood pressure Diastolic blood pressure Provider Name and Address Organization Details Last Updated DateTime 5 96 /min 170.18 cm 96 % 96 % 12314.6 4 g 98 [degF] 14 /min 111 mm[Hg] 65 mm[Hg] Not Available [email or web address] - [facility] 5 13:05:22 Social History None recorded. Functional Status None recorded. Mental Status None recorded. Family History Nothing Reported. Medical History No medical history recorded. Past Encounters Encounter ID Performer Location Encounter Start Date Encounter Closed Date Diagnosis/Indication Diagnosis SNOMED-CT Code Diagnosis ICD10 Code Diagnosis Note [id number] Flaquito Perdue MD [facility] - [facility] [address] [place] [phone] 09/06/2022 20:08:20 09/07/2022 12:39:08 Nasal congestion 83887969 R09.81 Patient reports continued nasal congestion . He has been started on azelastine . No fevers, chills, purulent drainage, or significan t pain to suggest bacterial sinusitis. Advised he continue his outpatient regimen as prescribed by his PCP. Change of dressing 93086 003 Z48.00 Patient with a recent lawnmower injury to fingers. Dressing fell off at home. He is scheduled to see the orthopedic surgeon tomorrow. Finger wound re-dressed with Xeroform and sterile gauze. [id number] Luz Maria Rizo MD [facility] - [facility] [address] [place] [phone] 09/09/2022 13:40:08 09/09/2022 21:46:46 Malaise and fatigue [id number] R53.83 advised unsure of etiology of fatigue- further w/u beyond scope of [facility]- advised of need to f/u with pcp tomorrow/ rest increase fluids as has mild elevation of BUN- not orthostati c- reviewed red flags Health Concerns Section Related Observation LastModified by Organization Detai ls LastModified Time None Recorded Concern Status LastModified by Organization Details LastModified Time None Recorded Advance Directives Directive None Recorded Payers Encounter Date Sequence Insurance Name Policy Number Policy Muñiz Covered Member ID Muñiz Member ID Guarantor Name 09/06/2022 1 [facility] - DOS ON OR AFTER 2022 - DUAL ELIGIBLE - FPC OPTIONS AND ONE CARE (MEDICARE REPLACEMENT/ADV ANTAGE - HMO) Miguelito Edmondson [id number] Miguelito Edmondson 09/09/2022 1 [facility] - DOS ON OR AFTER 2022 - DUAL ELIGIBLE - [employer]PC OPTIONS AND ONE CARE (MEDICARE REPLACEMENT/ADV ANTAGE - HMO) Miguelito Edmondson [id number] Miguelito Edmondson Notes Date Note Type Note Provider Name and Address Organization Details Recorded Time 09/06/2022 text/html [facility] Nursing Assessment: Reason For Request: Stuffy nose Chief Complaints: URI PMH: COPD/Asthma, Hypertension Allergies: No Known Comments: Members daughter calling in to place a referral, member identified via /name. Member who was seen by MD for his nose issues and prescribed nasal spray. Per daughter member is restless and getting irritated that he can not breathe through his nose, not sure if it allergy related, member has the AC on to help. Member is not having sob or distress and is breathing through his mouth without difficulty just c/o his mouth getting dry. He denies headache or dizziness, member is hear speaking in the back round. This nurse had daughter take his VS, 02 sat 96% RA and BP 153/91 but has not taken his blood pressure medication today, daughter will administer now. Member also had an incident 2 weeks ago and got his right hand with his loan mower causing amputation of tips, member to see doc tomorrow, however, dressing has come undone and they would like fingers assessed and re-wrapped. Member would like to be evaluated. .................. .................. .................. .................. .................. .................. .................. ............... Instrument And Control Technician Note From Portillo López: Mobile health call for patient complaining of stuffy nose and separately concerned about wound care for a few finger tips . Arrived to home to find patient with family in living room. Pt presented in no obvious distress. Pt had limited Filipino so his daughter provided translation for assessment. Pt states that he has had stuffy nose for which he was prescribed azelastine nasal spray and has been trialing flonase as well with some improvement. Pt states that on August 28 while working on cutter in he severed the tips of the index and middle finger of his left hand. Pt was seen at ED and referred to orthopedic surgeon for consult with appointment scheduled for tomorrow . Family expressed concern that patient knocked off bandages yesterday while doing yard work and put used bandages back on, concerned for possible infection. Pt is on oral amoxicillin for antibiotic prophylaxis . Bandages removed and injuries assessed No signs of infection noted on exam. Injuries photographed for physician to review. Vital signs taken as listed . Pt afebrile. Consulted with me who advised to apply xeroform and sterile bandages . Injury was bandaged . Reviewed red flags with family. Pt education provided . Explained nasal lavage procedure. .................. .................. .................. .................. .................. .................. .................. ............... Disposition: Fulfilled Flaquito Perdue MD [address] [place] [address],[address], [place], [phone], [facility] - [employer] 09/06/2022 22:57:04 09/09/2022 text/html [facility] Nursing Assessment: Reason For Request: Daughter reporting pt baseline seems the worst she has ever seen him>pt was also recently seen by [facility]. public space attendant reporting weakness and lethargy>losing weight in the last few weeks. hot and cold sweats>issues with nose because he was having a hard time breathing> Chief Complaints: Weakness/Lethargy, Fever/Chills PMH: COPD/Asthma, Hypertension Allergies: No Known Comments: Daughter received call from [employer] that member is experiencing chills and body aches today with weakness. Unknown fever. Increased weight loss and decreased appetite over the last 2 weeks. Approx 2 weeks ago member's right hand was injured from cutter in accident. Prescribed Amoxicillin and Oxycodone. Also reported the BP was high today not able to given value.SEGMD: Finished augmentin for right hand injury- followed in wound clinic- seen Wed looked good adn redressed- next appt tomorrow- healing well without c/o/ was given fexofenadine and azelastine spray by pcp for rhinorrhea- felt to be allergies- no: dizziness/ headache/ focal weakness/ fever/syncope/ cp/ palpitations( has hx afib on eliquis for same) /n/v/d. was not eating well earlier in the week - has increased po fluids - just very tired............. .................. .................. .................. .................. .................. .................. .................. ... Instrument And Control Technician Note From Benjamin Mckenzie: Dispatched to the call address for the male with weakness/lethargy. Family states that Pt has been sleeping a lot during the day and just has not been himself for the last 2 months. Pt has had diminished appetite (has been able to maintain PO hydration and has started drinking more water over the last couple of days). Pt complains of sinus pressure at times. He has been seen by his PCP for same complaints and Pt was given allergy medications which have only provided mild relief. Pt denies CP/sob or any cold/flu like symptoms. Pt was found sitting on living room couch, CAOx3, airway open and patent, breathing non labored, able to speak in full sentences, -JVD, -HEENT, skin PWD with good turgor, abd soft non tender/distended, lung sounds clear and equal bilaterally, +CMSx4 with strong radial pulses, -edema. Afib (Hx of), 12 lead non diagnostic for STEMI, orthostatic vs WNL. BMP, UA (Negative), covid/flu rapid (negative), 12 lead. [facility] consulted. Pt was advised to increase fluid intake and follow up with PCP. Red flags discussed. ALL times are approx. .................. .................. .................. .................. .................. .................. .................. ............... Disposition: Fulfilled Luz Maria Rizo MD [address] [facility],[address], [place], [address], [facility] 09/09/2022 19:51:22
--- NOTE | 2024-03-21 14:54 | ED.SOB ---
HPI - SOB/Dyspnea General Chief Complaint: Dyspnea Stated Complaint: SOB Time Seen by Provider: 03/21/24 14:40 Source: patient and family (Daughter) Mode of arrival: ambulatory Limitations: no limitations History of Present Illness ED Provider: Dr. Andrei Ortega HPI Narrative: 83-year-old male with a history of paroxysmal atrial fibrillation, GERD, hypertension, COPD who presents emergency department for evaluation of 2 days and shortness of breath, subjective fever, congestion, nonproductive cough. Patient states that he was having severe fatigue as well. He denied nausea, vomiting or diarrhea. Patient has been taking Tylenol for his symptoms with some relief. Patient was not vaccinated against influenza this year. He states that last time that he got an influenza vaccination he was sick for 2 weeks Related Data Home Medications ?Medication ?Instructions ?Recorded ?Confirmed albuterol sulfate 90 mcg/actuation 1 puff inhalation QID PRN wheezing 01/13/21 10/30/22 aerosol inhaler fluticasone 500 mcg-salmeterol 50 1 puff inhalation BEDTIME 01/13/21 10/30/22 mcg/dose blistr powdr for inhalation (Wixela Inhub) omeprazole 20 mg capsule,delayed 20 mg PO DAILY 01/13/21 10/30/22 release Previous Rx's ?Medication ?Instructions ?Recorded apixaban 5 mg tablet (Eliquis) 5 mg PO BID #60 tabs 01/14/21 metoprolol tartrate 50 mg tablet 50 mg PO BID #60 tabs 03/10/21 diltiazem HCl 120 mg 120 mg PO DAILY #30 caps 04/08/21 capsule,extended release 24 hr cyclobenzaprine 10 mg tablet 10 mg PO BEDTIME #14 tabs 10/30/22 prednisone 20 mg tablet 40 mg (2 x 20 mg) PO DAILY #10 tabs 10/30/22 valacyclovir 1 gram tablet 1,000 mg PO TID #20 tabs 10/30/22 oseltamivir 75 mg capsule (Tamiflu) 75 mg PO Q12H 5 days #10 caps 03/21/24 Allergies Allergy/AdvReac Type Severity Reaction Status Date / Time No Known Allergies Allergy Unknown Verified 03/21/24 10:14 Review of Systems Review of Systems: Yes all other systems are reviewed and are negative PMFSH Past Medical History Medical History PAF (paroxysmal atrial fibrillation) Atrial fibrillation with RVR GERD (gastroesophageal reflux disease) HTN (hypertension) COPD (chronic obstructive pulmonary disease) No known health problems Surgical History No pertinent past surgical history Social History Social History Household Members: Spouse Housing: Apartment Do you presently have visiting nurse or other home services: No Alcohol intake: never Patient Tobacco Use Status: Former Tobacco user Advance Directives: No Advance Directives Information Provided: Yes service: No Current occupational status: retired Physical Exam Vital Signs: Vital Signs: Last Vital Signs Temp 98.3 F 03/21/24 10:11 Pulse 113 H 03/21/24 10:11 Resp 18 03/21/24 10:11 BP 158/74 H 03/21/24 10:11 Pulse Ox 95 03/21/24 10:11 O2 Del Method Room Air 03/21/24 10:11 BMI result Body Mass Index 28.0 Vital signs revealed an increased heart rate of 100 13 unit increased blood pressure of 158/74. O2 saturation was 95% on room air Exam: General: Awake, alert in no distress Head: Normocephalic, atraumatic EENT: PERRL, Lids normal, sclera normal, conjunctiva normal, nose normal , ears normal, throat without erythema or exudates Neck: Supple, no adenopathy Lung: breath sounds symmetric, no wheezing, rales or rhonchi Chest: symmetric movement, nontender Heart: regular rate and rhythm, normal S1, S2 no murmurs or rubs Abdomen: soft, non-tender, nondistended, normal bowel sounds Back: no vertebral tenderness, no CVAT Extremities: no deformities, moves all extremities symmetrically Neuro: Awake, alert, oriented, normal speech, cranial nerves intact, moves all extremities symmetrically Psych: Pleasant, cooperative Medical Decision Making Medical Decision Making MDM Narrative: 83-year-old male with a history of paroxysmal atrial fibrillation, GERD, hypertension, COPD who presents emergency department for evaluation of 2 days and shortness of breath, subjective fever, congestion, nonproductive cough fatigue. Patient denied chest pain, nausea, vomiting, diarrhea. Patient states that he was having severe fatigue as well. Vital signs revealed an elevated heart rate and elevated blood pressure otherwise unremarkable. Differential diagnosis: ?Includes but is not limited to viral syndrome, influenza, RSV, COVID-19, pneumonia, COPD exacerbation, anemia, electrolyte abnormalities, myocardial infarction/injury Course: 15:15 My independent interpretation patient's laboratory evaluation is as follows: WBC was normal 6700. Mild anemia with an H&H of 13 and 39.6. Elevated BUN of 20 with a normal creatinine of 1.12. Elevated glucose 133. LFTs were normal. High sensitive troponin I was detectable but not elevated at 23.1. COVID-19, RSV were negative. Influenza was positive for influenza A. Chest x-ray revealed no evidence of pneumonia Patient's symptoms and presentation are consistent with influenza a and I did discuss this with the patient and the patient's daughter. I discuss the benefits and side effects of Tamiflu in the patient does want to be treated at this time. Patient was given a prescription for Tamiflu 75 mg q.12 hours x5 days. He was advised to take Tylenol for his pain and fever. He was given printed and verbal instructions and discharged home in the care of his daughter. Admission/Observation Consideration of admission/observation: Escalation of care including admission/observation considered (Yes) Lab Data MDM Lab Attestation statement: I reviewed the patient's lab results. 03/21/24 10:38 03/21/24 10:38 Labs: Lab Results 03/21/24 03/21/24 Range/Units 10:34 10:38 WBC 6.7 (4.8-10.8) X10*3/uL RBC 4.57 L (4.60-5.80) X10*6/uL Hgb 13.0 L D (14.0-18.0) g/dl Hct 39.6 L (42.0-52.0) % MCV 86.7 (80.0-98.0) fL MCH 28.4 (27.0-33.0) pg MCHC 32.8 (31.0-36.0) g/dl RDW 13.1 (11.0-16.0) % Plt Count 192 (160-400) X10*3/uL MPV 11.7 (9.4-12.4) fL Immature Gran % (Auto) 0.4 (0.0-0.4) % Neut % (Auto) 71.0 (45-73) % Lymph % (Auto) 12.1 L (20-40) % [place] % (Auto) 15.8 H (2-11) % Eos % (Auto) 0.4 (0-4) % Baso % (Auto) 0.3 (0-2) % Lymph # (Auto) 0.8 L (1.2-4.9) X10*3/uL [place] # (Auto) 1.1 (0.1-1.2) X10*3/uL Eos # (Auto) 0.0 (0.0-0.4) X10*3/uL Baso # (Auto) 0.0 (0.0-0.2) X10*3/uL Abs Immat Gran (auto) 0.03 (0.00-0.03) X10*3/uL Absolute Neuts (auto) 4.8 (2.0-8.3) x10*3/uL Absolute Nucleated RBC 0.000 (0.0-0.012) X10*3/uL Nucleated RBC % (auto) 0.0 (0.0-0.2) /100WBC Sodium 135 (135-145) mmol/L Potassium 4.4 (3.3-5.1) mmol/L Chloride 104 (96-108) mmol/L Carbon Dioxide 24 (22-29) mmol/L Anion Gap 11 L (12-20) BUN 20 H (9-16) mg/dL Creatinine 1.12 (0.5-1.4) mg/dL Estim Creat Clear Calc 50.7 Estimated GFR > 60 Random Glucose 133 H (60-115) mg/dL Calcium 8.6 D (8.4-10.2) mg/dL Total Bilirubin 0.5 (0.0-1.0) mg/dL AST 26 (5-37) U/L ALT 14 (0-40) U/L Alkaline Phosphatase 72 (39-117) U/L Troponin I High Sens 23.1 D (<3.5-35.0) ng/L Total Protein 7.4 (6.5-8.0) g/dL Albumin 3.9 (3.5-5.0) g/dL Influenza Type A (PCR) POSITIVE A (Negative) Influenza Type B (PCR) NEGATIVE (Negative) RSV RNA Qual (PCR) NEGATIVE (Negative) SARS-CoV-2 RNA (RT-PCR) NEGATIVE (Negative) Independent Interpretation I performed an independent interpretation of an: Plain X-Ray Interpretation: My independent interpretation of the patient's chest x-ray is as follows: No acute infiltrates noted Patient was 12 EKG done at 10:30 hours was interpreted by me as follows: Atrial fibrillation with a rapid ventricular response of 107, no ST segment elevation, no ST segment depression, artifact in the baseline makes interpretation of the T-waves difficult but no significant T-wave abnormalities noted. Compared to EKG dated 09/16/2022 the tachycardia is new otherwise there is no other significant changes. Radiology Impression Discussion of test interpretation with radiology: I have reviewed the radiologist's reading. Radiologist Impression: XR CHEST CLINICAL INFORMATION: cough FINDINGS: The cardiac, hilar, and mediastinal contours are normal. The lungs are mildly hyperaerated, however clear bilaterally. There is no pneumothorax or pleural effusion. There is no focal osseous or soft tissue abnormality. XR/XR chest 2V IMPRESSION: No active pulmonary disease. No significant change. Electronically signed by: Ryan Laws MD 03/21/2024 11:51 AM EST Independent Historian Clinical information obtained from an independent historian. History obtained from or confirmed by: Other (Daughter) Chronic Conditions Patient?s care impacted by: Hypertension and Other (COPD) Discharge Plan Discharge Patient Disposition: Home, Self-Care Instructions: Influenza (ED) Additional Instructions: Your blood work was unremarkable. Your chest x-ray did not reveal a pneumonia at this time which is reassuring. Your influenza test was positive for influenza a and this explains your symptoms Take Tamiflu 75 mg pills, 1 pill every 12 hours for 5 days. This medication should help reduce the number of days that you sick with the flu. Increase the amount of fluid that you drink to prevent dehydration. Take Tylenol (acetaminophen) 500 mg pills, 2 pills every 6 hours as needed for pain or fever. Follow-up with your doctor in 2 days. Please return to the emergency department if your symptoms get worse or if you develop any symptoms that are concerning to you. Prescriptions: New oseltamivir [Tamiflu] 75 mg capsule 75 mg PO Q12H 5 Days Qty: 10 0RF No Action metoprolol tartrate 50 mg tablet 50 mg PO BID Qty: 60 5RF omeprazole 20 mg capsule,delayed release(DR/EC) 20 mg PO DAILY albuterol sulfate 90 mcg/actuation HFA aerosol inhaler 1 puff inhalation QID PRN (Reason: wheezing) fluticasone propion-salmeterol [Wixela Inhub] 500-50 mcg/dose blister with device 1 puff inhalation BEDTIME Eliquis 5 mg tablet 5 mg PO BID Qty: 60 0RF prednisone 20 mg tablet 40 mg PO DAILY Qty: 10 0RF valacyclovir 1 gram tablet 1,000 mg PO TID Qty: 20 0RF cyclobenzaprine 10 mg tablet 10 mg PO BEDTIME Qty: 14 0RF diltiazem HCl 120 mg capsule,extended release 24hr 120 mg PO DAILY Qty: 30 5RF Print Language: Malagasy
[2024-03-21 15:16] VITALS: BP 143/90; PULSE 84; RESP 18; TEMP 36.8; O2SAT 98
[2024-03-21 15:27] VITALS: BP 143/90; PULSE 84; RESP 18; TEMP 36.8; O2SAT 98
== END 2024-03-21 15:28 | disposition home or self-care (01) ==
PROVIDERS: Emergency Provider Emergency Medicine Emergency Medical Services; PCP Family Medicine
DX: J10.1 Influenza due to other identified influenza virus with other respiratory manifestations (principal); I48.20 Chronic atrial fibrillation, unspecified; R53.83 Other fatigue; R06.02 Shortness of breath; R50.9 Fever, unspecified; R05.9 Cough, unspecified; Z03.818 Encounter for observation for suspected exposure to other biological agents ruled out; Z79.899 Other long term (current) drug therapy
CPT/HCPCS: 0241U; 36415; 71046; 80053; 84484; 85025; 93005; 99283; 99284

== ENCOUNTER → 2024-03-21 10:15 | Outpatient (BNV) | payer OTHER, SELFPAY | PROVIDERS: PCP Family Medicine; Visit Provider Radiology Diagnostic Radiology | DX: R05.9 Cough, unspecified (principal) | CPT/HCPCS: 71046 ==

== ENCOUNTER → 2024-03-21 10:16 | Outpatient (BNV) | payer OTHER, SELFPAY | PROVIDERS: Emergency Provider Emergency Medicine Emergency Medical Services; PCP Family Medicine; Visit Provider Internal Medicine Cardiovascular Disease | DX: I48.91 Unspecified atrial fibrillation (principal) | CPT/HCPCS: 93010 ==

== ENCOUNTER 2024-10-29 12:39 | Emergency (ER) | payer OTHER, SELFPAY ==
--- NOTE | ~2024-10-29 | XR_ITS ---
CLINICAL HISTORY: cough sob Two views of the chest. COMPARISON: XR chest dated 03/21/24 at 11:41 EST FINDINGS: Borderline cardiomegaly. Tortuous thoracic aorta. No consolidation. Mild bronchial wall thickening. No definite pleural effusion. No pneumothorax. No acute fracture. IMPRESSION: 1. Borderline cardiomegaly with likely mild pulmonary edema. This document has been electronically signed by: Chiki Barnhart MD on 10/29/2024 14:21:09
--- NOTE | ~2024-10-29 | XR_ITS ---
CLINICAL HISTORY: low back pain Three views of the lumbar spine. COMPARISON: None provided. FINDINGS: Five [id number] lumbar type vertebral bodies. Normal vertebral body alignment. Vertebral body heights are maintained. No evidence of acute vertebral body injury. Loss of disc space height, facet joint arthrosis and marginal osteophytes present throughout the lumbar spine. There is neural foraminal narrowing most pronounced at L4-5 and L5-S1. Visualized portions of the bones of the pelvis appear intact. Moderate colonic stool burden. IMPRESSION: 1. No radiographic evidence of acute injury to the lumbar spine. 2. Advanced multilevel lumbar spondylosis most pronounced in the lower lumbar spine. This document has been electronically signed by: Chiki Barnhart MD on 10/29/2024 14:22:22
--- NOTE | 2024-10-29 12:44 | ED.GENADULT ---
HPI - General Adult General Chief complaint: Dyspnea Stated complaint: diff breathing Time Seen by Provider: 10/29/24 14:10 Source: patient, family and translator and interpreter Mode of arrival: ambulatory Limitations: no limitations History of Present Illness ED Provider: DR. Browne HPI narrative: [age] year old male history of paroxysmal AFib on Eliquis and metoprolol, HTN, COPD, patient is otherwise healthy lives alone and functional at home for the past week patient been having shortness of breath only with exertion, no paroxysmal nocturnal dyspnea, no lower extremity swelling, + productive cough with yellow sputum, no recent travel, no exposure to sick contacts, no fever, no chills. Related Data Home Medications ?Medication ?Instructions ?Recorded ?Confirmed albuterol sulfate 90 mcg/actuation 1 puff inhalation QID PRN wheezing 01/13/21 10/30/22 aerosol inhaler fluticasone 500 mcg-salmeterol 50 1 puff inhalation BEDTIME 01/13/21 10/30/22 mcg/dose blistr powdr for inhalation (Wixela Inhub) omeprazole 20 mg capsule,delayed 20 mg PO DAILY 01/13/21 10/30/22 release Previous Rx's ?Medication ?Instructions ?Recorded apixaban 5 mg tablet (Eliquis) 5 mg PO BID #60 tabs 01/14/21 Held on 08/28/22. Instructions: Resume on 08/30/22. hold until 2 days post operative metoprolol tartrate 50 mg tablet 50 mg PO BID #60 tabs 03/10/21 diltiazem HCl 120 mg 120 mg PO DAILY #30 caps 04/08/21 capsule,extended release 24 hr cyclobenzaprine 10 mg tablet 10 mg PO BEDTIME #14 tabs 10/30/22 prednisone 20 mg tablet 40 mg (2 x 20 mg) PO DAILY #10 tabs 10/30/22 valacyclovir 1 gram tablet 1,000 mg PO TID #20 tabs 10/30/22 oseltamivir 75 mg capsule (Tamiflu) 75 mg PO Q12H 5 days #10 caps 03/21/24 albuterol sulfate 90 mcg/actuation 2 inh inhalation Q6H PRN shortness 10/29/24 breath activated powder inhaler of breath or wheezing #1 ea doxycycline hyclate 100 mg tablet 100 mg PO BID #7 tabs 10/29/24 prednisone 20 mg tablet 20 mg PO BID #10 tabs 10/29/24 Allergies Allergy/AdvReac Type Severity Reaction Status Date / Time No Known Allergies Allergy Unknown Verified 10/29/24 12:47 Review of Systems Review of Systems: All other systems are reviewed and are negative Constitutional: Reports as per HPI and Reports no additional constitutional complaints Eyes: Reports as per HPI and Reports no additional eye complaints Reports system reviewed and no additional complaints, except as documented Cardiovascular: Reports as per HPI and Reports no additional cardiovascular complaints Respiratory: Reports as per HPI and Reports no additional respiratory complaints Gastrointestinal: Reports as per HPI and Reports no additional gastrointestinal complaints Genitourinary: Reports no additional female genitourinary complaints Musculoskeletal: Reports no additional musculoskeletal complaints Skin/Breast: Reports system reviewed and no additional complaints, except as docu Psychiatric: Reports no additional psychiatric complaints Endocrine: Reports no additional endocrine complaints Hematologic/Lymphatic: Reports no additional hematologic/lymphatic complaints Allergic/Immunologic: Reports no additional allergic/immunologic complaints Reports system reviewed and no additional complaints, except as documented and Reports Abnormal speech present [facility] Past Medical History Medical History PAF (paroxysmal atrial fibrillation) Atrial fibrillation with RVR GERD (gastroesophageal reflux disease) HTN (hypertension) COPD (chronic obstructive pulmonary disease) No known health problems Surgical History No pertinent past surgical history Social History Social History Household Members: Spouse Housing: Apartment Do you presently have visiting nurse or other home services: No Alcohol intake: current Alcohol intake frequency: holidays/special occasions only Patient Tobacco Use Status: Former Tobacco user Smoked in Last 30 Days: Yes Use of substances other than those prescribed or required for medical reasons: No Advance Directives: No Advance Directives Information Provided: No service: No Current occupational status: retired Physical Exam ED Vital Signs: Vital Signs - 24 hr 10/29/24 12:46 10/29/24 14:46 10/29/24 16:20 Temperature 98.3 F Pulse Rate 83 91 81 Respiratory Rate 18 24 H 21 H Blood Pressure 124/61 Pulse Oximetry 96 Oxygen Delivery Method Room Air 10/29/24 16:40 Temperature 97.8 F Pulse Rate 95 Respiratory Rate 14 Blood Pressure 153/88 H Pulse Oximetry 94 Oxygen Delivery Method Room Air BMI result Body Mass Index 29.7 Vital signs have been reviewed and appear to be correct. Blood pressure elevated. Heart rate normal. Respiratory rate normal. Temperature normal. Oxygen saturation normal. Appearance: Alert. Oriented X3. No acute distress. Head: Normal external exam. Normocephalic. Atraumatic. No Helm signs noted. No raccoon eyes noted Eyes: PERRLA. EOMI. Conjunctiva and sclera normal. Eyelids normal. ENT: TM's Normal. Pharynx normal. Uvula midline. Moist mucous membranes. No trismus noted. No drooling noted. No muffled voice noted. Neck: Normal inspection. Neck supple. FROM. No adenopathy. Thyroid Normal. No meningeal signs. No neck mass noted. CVS: Normal heart rate and rhythm. Heart sound normal. No murmurs noted. Pulses normal throughout. Respiratory: No respiratory distress. Painless inspiration. Diffuse mild expiratory wheezing with prolonged expiration and bilateral basilar rales. No accessory muscle usage noted or decreased air movement noted. Abdomen: Soft and nontender. Bowel sounds normal in all 4 quadrants. No distention noted. No organomegaly noted. No visible injury noted. Back: No CVA tenderness. Full range of motion noted. Skin: Skin warm and dry. Normal skin color. Normal skin turgor. No rashes/lesions/lacerations noted. Extremities: No lower extremity edema. Extremities exhibit normal range of motion. Extremities nontender. Neuro: Oriented X 3. Cranial nerve exam: II-XII are grossly intact No motor deficit. No sensory deficit. Reflexes normal. Course Course Course Narrative: This is a Rapid Medical Examination (RME) performed by Wendi Duque PA-C in triage. Full HPI, ROS, assessment and treatment plan per primary provider in the Main ED. Hx: 84 yo M hx COPD here for eval of difficulty breathing x1 week. cough w/ yellow sputum. also endorsing low back pain. PE/vitals: no resp distress. rhonchi throughout Plan: labs, viral swabs, cxr Reevaluation(s) Reevaluation #1: Patient had a serial pulmonary exam with improvement of his symptoms, no hypoxia, patient was able to ambulate in the ED without respiratory distress, no aishwarya sign of pneumonia on the x-ray, no sepsis. Will discharge the patient on prednisone/bronchodilator, 5 days of doxycycline. No risk for pulmonary embolism with negative D-dimer. Time: 17:29 Medications Administered Discontinued Medications Generic Name Dose Route Start Last Admin Trade Name Freq PRN Reason Stop Dose Admin Albuterol Sulfate 2.5 mg/ 5 mg 10/29/24 16:20 10/29/24 16:25 Albuterol Sulfate 2.5 mg INHALE 10/29/24 16:21 5 mg ONCE ONE Administration Albuterol Sulfate 5 mg/ 0 mg 10/29/24 14:46 10/29/24 14:56 Albuterol/Ipratropium 3 ml INHALE 10/29/24 14:47 7.5 each ONCE ONE Administration Magnesium Sulfate 2 gm in 50 mls @ 150 mls/hr 10/29/24 14:30 10/29/24 15:13 Magnesium Sulfate/H2o IV 10/29/24 14:49 Infused ONCE ONE Infusion Methylprednisolone Sodium Succinate 125 mg 10/29/24 14:30 10/29/24 14:53 Methylprednisolone Sod Succ 125 Mg/2 Ml Vial IVPUSH 10/29/24 14:31 125 mg ONCE ONE Administration Medical Decision Making Differential Diagnosis Differential Diagnoses: The differential diagnosis associated with the presentation includes (Pneumonia, pneumothorax, pleural effusion, pulmonary embolism, COPD exacerbation, electrolyte derangement, CHF, ACS, severe anemia.) Lab Data 10/29/24 13:00 10/29/24 13:00 Labs: Lab Results 10/29/24 10/29/24 Range/Units 13:00 14:59 WBC 8.2 (4.8-10.8) X10*3/uL RBC 4.19 L (4.60-5.80) X10*6/uL Hgb 11.5 L (14.0-18.0) g/dl Hct 35.7 L (42.0-52.0) % MCV 85.2 (80.0-98.0) fL MCH 27.4 (27.0-33.0) pg MCHC 32.2 (31.0-36.0) g/dl RDW 13.9 (11.0-16.0) % Plt Count 215 (160-400) X10*3/uL MPV 10.9 (9.4-12.4) fL Immature Gran % (Auto) 0.4 (0.0-0.4) % Neut % (Auto) 63.0 (45-73) % Lymph % (Auto) 20.0 (20-40) % [place] % (Auto) 10.7 (2-11) % Eos % (Auto) 5.5 H (0-4) % Baso % (Auto) 0.4 (0-2) % Lymph # (Auto) 1.6 (1.2-4.9) X10*3/uL [place] # (Auto) 0.9 (0.1-1.2) X10*3/uL Eos # (Auto) 0.5 H (0.0-0.4) X10*3/uL Baso # (Auto) 0.0 (0.0-0.2) X10*3/uL Abs Immat Gran (auto) 0.03 (0.00-0.03) X10*3/uL Absolute Neuts (auto) 5.2 (2.0-8.3) x10*3/uL Absolute Nucleated RBC 0.000 (0.0-0.012) X10*3/uL Nucleated RBC % (auto) 0.0 (0.0-0.2) /100WBC D-Dimer High Sensitivty < 150 NG/ML Sodium 140 (135-145) mmol/L Potassium 4.5 (3.3-5.1) mmol/L Chloride 108 (96-108) mmol/L Carbon Dioxide 22 (22-29) mmol/L Anion Gap 15 (12-20) BUN 17 H (9-16) mg/dL Creatinine 0.98 (0.5-1.4) mg/dL Estim Creat Clear Calc 56.6 Estimated GFR > 60 Random Glucose 92 (60-115) mg/dL Calcium 9.1 (8.4-10.2) mg/dL Magnesium 1.8 (1.6-2.6) mg/dL Total Bilirubin 0.4 (0.0-1.0) mg/dL AST 21 (5-37) U/L ALT 18 (0-40) U/L Alkaline Phosphatase 88 (39-117) U/L Troponin I High Sens 10.0 D (<3.5-35.0) ng/L B-Natriuretic Peptide 171 H (<100) pg/mL Total Protein 6.8 (6.5-8.0) g/dL Albumin 4.1 (3.5-5.0) g/dL Lipase 42 (8-78) U/L Influenza Type A (PCR) NEGATIVE (Negative) Influenza Type B (PCR) NEGATIVE (Negative) RSV RNA Qual (PCR) NEGATIVE (Negative) SARS-CoV-2 RNA (RT-PCR) NEGATIVE (Negative) Discharge Plan Discharge Clinical Impression: Acute exacerbation of chronic obstructive airways disease Patient Disposition: Home, Self-Care Instructions: COPD (Chronic Obstructive Pulmonary Disease) (ED) Prescriptions: New albuterol sulfate 90 mcg/actuation aerosol powdr breath activated 2 inh inhalation Q6H PRN (Reason: shortness of breath or wheezing) Qty: 1 0RF doxycycline hyclate 100 mg tablet 100 mg PO BID Qty: 7 0RF prednisone 20 mg tablet 20 mg PO BID Qty: 10 0RF No Action metoprolol tartrate 50 mg tablet 50 mg PO BID Qty: 60 5RF omeprazole 20 mg capsule,delayed release(DR/EC) 20 mg PO DAILY albuterol sulfate 90 mcg/actuation HFA aerosol inhaler 1 puff inhalation QID PRN (Reason: wheezing) fluticasone propion-salmeterol [Wixela Inhub] 500-50 mcg/dose blister with device 1 puff inhalation BEDTIME Eliquis 5 mg tablet 5 mg PO BID Qty: 60 0RF oseltamivir [Tamiflu] 75 mg capsule 75 mg PO Q12H 5 Days Qty: 10 0RF prednisone 20 mg tablet 40 mg PO DAILY Qty: 10 0RF valacyclovir 1 gram tablet 1,000 mg PO TID Qty: 20 0RF cyclobenzaprine 10 mg tablet 10 mg PO BEDTIME Qty: 14 0RF diltiazem HCl 120 mg capsule,extended release 24hr 120 mg PO DAILY Qty: 30 5RF Referrals: Junito Peña MD [Primary Care Provider, Internal Medicine] Print Language: Wolof
[2024-10-29 12:46] VITALS: BP 124/61; PULSE 83; RESP 18; TEMP 36.8; O2SAT 96; BMI 29.7
--- NOTE | 2024-10-29 12:46 | ECG_ITS ---
Test Reason : DYSPNEA Blood Pressure : */* mmHG Vent. Rate : 75 BPM Atrial Rate : * BPM P-R Int : * ms QRS Dur : 90 ms QT Int : 392 ms P-R-T Axes : * 34 27 degrees QTcB Int : 437 ms Atrial fibrillation Abnormal ECG When compared with ECG of 21-Mar-2024 10:30, No significant change was found Referred By: Dede Duque Electronically Signed By: MEJIA FALL MD
[2024-10-29 13:03] LABS: MANUAL DIFF FLAG NO
[2024-10-29 13:06] LABS: Hematocrit 35.7 % (42.0-52.0); Hemoglobin 11.5 g/dl (14.0-18.0); Imm Gran Abs Auto 0.03 X10*3/uL (0.00-0.03); Imm Gran Pct Auto 0.4 % (0.0-0.4); Lymphocytes Absolute Auto 1.6 X10*3/uL (1.2-4.9); Mean Corpuscular HGB Conc 32.2 g/dl (31.0-36.0); Mean Corpuscular Hemoglobin 27.4 pg (27.0-33.0); Mean Corpuscular Volume 85.2 fL (80.0-98.0); NRBC Abs Auto 0.000 X10*3/uL (0.0-0.012); NRBC Pct Auto 0.0 /100WBC (0.0-0.2); Platelet Count 215 X10*3/uL (160-400); Red Blood Count 4.19 X10*6/uL (4.60-5.80); White Blood Count 8.2 X10*3/uL (4.8-10.8)
[2024-10-29 13:23] LABS: Alanine Aminotransferase 18 U/L (0-40); Albumin Level 4.1 g/dL (3.5-5.0); Alkaline Phosphatase 88 U/L (39-117); Anion Gap 15 (12-20); Aspartate Amino Transferase 21 U/L (5-37); Blood Urea Nitrogen 17 mg/dL (9-16); Calcium 9.1 mg/dL (8.4-10.2); Carbon Dioxide 22 mmol/L (22-29); Chloride 108 mmol/L (96-108); Creatinine Clr Calc Pharmacy 56.6; Estimated Glomerular Filt Rate > 60; Lipase 42 U/L (8-78); Magnesium 1.8 mg/dL (1.6-2.6); Potassium 4.5 mmol/L (3.3-5.1); Sodium 140 mmol/L (135-145); Total Protein 6.8 g/dL (6.5-8.0)
[2024-10-29 13:30] LABS: Troponin-I High Sensitivity 10.0 ng/L (<3.5-35.0)
[2024-10-29 13:44] LABS: Resp Syncy Virus RNA Qual PCR NEGATIVE (Negative); SARS COV2 PCR INHOUSE NEGATIVE (Negative)
[2024-10-29 14:46] VITALS: PULSE 91; RESP 24; O2SAT 95
[2024-10-29 14:47] LABS: B Type Natriuretic Peptide 171 pg/mL (<100)
[2024-10-29] MEDS: Magnesium Sulfate/H2O 2 GM/50 ML PIGGYBACK IV (14:53)
[2024-10-29] MEDS: Albuterol Sulfate 5 MG, Albuterol/Iprat 2.5/0.5MG 3 ML 3 ML INHALE (14:56)
[2024-10-29 15:19] LABS: D Dimer High Sensitivity < 150 NG/ML
--- NOTE | 2024-10-29 15:38 | PC.NURSE ---
patient a&ox3,pt difficult stick, US IV placed by charge as pt stated You have one shot to get my IV , pt was medicated per order, RT gave updraft per order, emergency room nurse intact-afib on monitor, pt ambulated to bathroom stby assist but had steady gait- generally walks at home with a cane per daughter. pt denies pain/discomfort, rr equal/non labored, lungs in/ex wheezing with rhonchi throughout, cxr perfomed/ekg previously performed, call green within reach, plan of care ongoing.
[2024-10-29 16:20] VITALS: PULSE 81; RESP 21; O2SAT 96
[2024-10-29] MEDS: Albuterol Sulfate 2.5 MG, Albuterol Sulfate (0.083%) 2.5 MG 5 MG INHALE (16:25)
[2024-10-29 16:40] VITALS: BP 153/88; PULSE 95; RESP 14; TEMP 36.6; O2SAT 94
[2024-10-29 17:26] VITALS: O2SAT 92
[2024-10-29 18:12] VITALS: BP 148/78; PULSE 98; RESP 16; TEMP 36.7; O2SAT 94
--- NOTE | 2024-10-29 18:13 | PC.NURSE ---
walking O2 check performed by tech, pt ambulated with steady gait, O2 sat was 92%- denies sob/dyspnea, pt to discharge home
== END 2024-10-29 18:12 | disposition home or self-care (01) ==
PROVIDERS: Physician Assistant Medical; Emergency Provider Emergency Medicine; PCP Family Medicine
DX: J44.1 Chronic obstructive pulmonary disease with (acute) exacerbation (principal); I48.0 Paroxysmal atrial fibrillation; Z79.01 Long term (current) use of anticoagulants; I10 Essential (primary) hypertension; Z79.899 Other long term (current) drug therapy
CPT/HCPCS: 36415; 71046; 72100; 80053; 83690; 83735; 83880; 84484; 85025; 85379; 87637; 93005; 94640; 99285; J2919; J3475

== ENCOUNTER → 2024-10-29 12:46 | Outpatient (BNV) | payer OTHER, SELFPAY | PROVIDERS: Emergency Provider Emergency Medicine; PCP Family Medicine; Visit Provider Internal Medicine Cardiovascular Disease | DX: I48.91 Unspecified atrial fibrillation (principal) | CPT/HCPCS: 93010 ==

== ENCOUNTER → 2024-10-29 12:47 | Outpatient (BNV) | payer OTHER, SELFPAY | PROVIDERS: Emergency Provider Emergency Medicine; PCP Family Medicine; Visit Provider Radiology Diagnostic Radiology | DX: M47.816 Spondylosis without myelopathy or radiculopathy, lumbar region (principal); R05.9 Cough, unspecified; R06.02 Shortness of breath | CPT/HCPCS: 71046; 72100 ==

== ENCOUNTER → 2024-12-19 07:00 | Outpatient (BNV) | payer OTHER, SELFPAY | PROVIDERS: Admitting Provider Student in an Organized Health Care Education/Training Program; Emergency Provider Emergency Medicine; PCP Family Medicine; Visit Provider Internal Medicine Cardiovascular Disease | DX: I51.7 Cardiomegaly (principal); I35.1 Nonrheumatic aortic (valve) insufficiency | CPT/HCPCS: 93306 ==

== ENCOUNTER 2024-12-19 08:20 | Observation (INO) | payer OTHER, SELFPAY ==
[2024-12-19] VITALS (11 sets, daily range): BP systolic 106–154; BP diastolic 63–83; PULSE 67–118; RESP 15–21; TEMP 36.1–36.6; O2SAT 94–98; BMI 29.1
--- NOTE | ~2024-12-19 | XR_ITS ---
EXAMINATION: XR CHEST CLINICAL INFORMATION: DIFF BREATHING COMPARISON: 10/29/2024 TECHNIQUE: 2 views of the chest were obtained. FINDINGS: There is mild cardiac enlargement. The mediastinal and hilar contours appear normal. The lungs are mildly hyperaerated, however clear bilaterally. No focal abnormal opacities. Stable prominence of the background interstitial markings. There is no pneumothorax or pleural effusion. There is no focal osseous or soft tissue abnormality. XR/XR chest 2V IMPRESSION: 1. Mild cardiac enlargement. 2. No active pulmonary disease. No significant change from 10/29/2024. Electronically signed by: Ryan Laws MD 12/19/2024 09:09 AM EDT
--- NOTE | 2024-12-19 07:00 | CA_ITS ---
Transthoracic Echocardiogram Patient (Last, First, Middle): Miguelito Alex, Gender: Male Date of : 1940 Age: 84 Procedure Date: 12/19/2024 Procedure Type: Transthoracic Echocardiogram Location: ER Height: 170.18 cm Weight: 84.37 kg BSA: 1.96 m2 Heart Rate: bpm BP: 113 / 73 mmHg Lcac Radar Operator/Navigator: Referring MD: Nancy Scott MD Crm Administrator: Arnoldo Hung MD Symptoms: AE HFPEF Study Quality: Good ECG Rhythm: Atrial Fibrillation Conclusions: - 1. Normal LV ejection fraction 55-60% with mild LVH 2. Moderately dilated right ventricle with preserved contractility 3. Biatrial enlargement, right greater than left 4. Trace aortic regurgitation 5. Normal RV systolic pressure 6. No gross pericardial effusion Findings Left Ventricle Normal left ventricular size and systolic function. There is mildly increased left ventricular wall thickness. The visually estimated ejection fraction is between 55-60%. Diastolic function is normal for age. Right Ventricle Moderately increased right ventricular cavity size. There is normal right ventricular systolic function. Atria The left atrium is mildly dilated. There is no evidence of interatrial shunt. The right atrium is moderately dilated. Aortic Valve There is mild calcification of the aortic valve. There is no aortic valve stenosis. There is trace (trivial) aortic valve regurgitation. Mitral Valve Normal mitral valve structure and function. There is trace mitral valve regurgitation. There is no mitral valve stenosis. Pulmonic Valve The pulmonic valve is likely normal. Tricuspid Valve Normal tricuspid valve structure. There is mild tricuspid valve regurgitation. The right ventricular systolic pressure is normal. The right ventricular systolic pressure is 31 mmHg. Normal right atrial pressure. There is no evidence of pulmonary hypertension. Great Vessels All visible segments of the aorta are normal in size. The pulmonary artery was not well visualized. There is no dilatation of the ascending aorta measuring 3.40 cm. Venous The inferior vena cava is normal in size and collapses greater than 50% with inspiration. Pericardium/Pleural There is no evidence of pericardial effusion. Measurements 2D Linear Measurements IVSd: 1.18 0.6-0.9/0.6-1.0 cm LVIDd: 4.05 3.9-5.3/4.2-5.9 cm LVIDd Index: 2.07 2.4-3.2/2.2-3.1 cm/m2 LVIDs: 2.56 2.0-3.6 cm LVPWd: 1.19 0.7-1.1 cm Ao Root: 3.30 2.1-3.5 cm LA Diam: 4.70 2.7-3.8/3.0-4.0 cm LAIDs Index: 2.40 1.5-2.3 cm/m2 LV Mass: 206.11 67-162/88-224 g LV Mass Index: 105.16 43-95/49-115 g/m2 LVOT Diam: 2.10 3.0+(-)1.3 cm Mitral Valve MV Pk E: 0.83 MV Decel Time: 149.00 E'Lateral: 12.10 E'Medial: 8.16 E/E' Med: 10.20 E/E' Lat: 6.90 PHT: 44.00 MVA PHT: 5.00 Decel Scurry: 5.56 Aortic Valve AoV Pk Ronan: 1.55 AoV Mn Ronan: 1.00 AoV VTI: 0.26 AoV Pk Grad: 10.00 Aov Mn Grad: 5.00 HAYDEE Cont.VTI: 2.60 LVOT LVOT Pk Ronan: 1.19 LVOT Mn Ronan: 0.67 LVOT VTI: 0.20 LVOT Pk Grad: 6.00 LVOT Mn Grad: 2.00 LVOT Diam: 2.10 LVOT Area: 3.46 Diastolic Function MV Pk E: 0.83 E'Medial: 8.16 E/E' Med: 10.20 E' Laterial: 12.10 E/E' Lat: 6.90 Right Ventricle TAPSE (mm): 25.00 TVS' Ronan: 16.00 Tricuspid Valve TR Pk Ronan: 2.66 TR Pk Grad: 28.00 RA Press: 3.00 RVSP: 31.00 Great Vessels Aorta Ao Root-2D: 3.30 2.0-3.7 cm Ao Asc: 3.40 2.1-3.4 cm Pulmonary Valve PV Pk Ronan: 1.29 Peak PV Grad: 7.00 Updated in Other Vendor System with Status of Final Arnoldo Hung MD electronically signed on 12/19/2024 4:54:56 PM with status of Final
--- NOTE | 2024-12-19 08:59 | ED.SOB ---
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 Browne HPI Narrative: 84-year-old male who is relatively came in for 2 days report of difficulty breathing, +coughing without sputum production, no fever, no chills, no chest pain. No sick contacts, no recent travel, no lower extremity swelling or tenderness. No known history of CAD, CHF, patient is on Eliquis for paroxysmal AFib. Related Data Home Medications ?Medication ?Instructions ?Recorded ?Confirmed albuterol sulfate 90 mcg/actuation 1 puff inhalation QID PRN wheezing 01/13/21 10/30/22 aerosol inhaler fluticasone 500 mcg-salmeterol 50 1 puff inhalation BEDTIME 01/13/21 10/30/22 mcg/dose blistr powdr for inhalation (Yeseniaxela Inhub) omeprazole 20 mg capsule,delayed 20 mg PO DAILY 01/13/21 10/30/22 release Previous Rx's ?Medication ?Instructions ?Recorded apixaban 5 mg tablet (Eliquis) 5 mg PO BID #60 tabs 01/14/21 Held on 08/28/22. Instructions: Resume on 08/30/22. hold until 2 days post operative metoprolol tartrate 50 mg tablet 50 mg PO BID #60 tabs 03/10/21 diltiazem HCl 120 mg 120 mg PO DAILY #30 caps 04/08/21 capsule,extended release 24 hr cyclobenzaprine 10 mg tablet 10 mg PO BEDTIME #14 tabs 10/30/22 prednisone 20 mg tablet 40 mg (2 x 20 mg) PO DAILY #10 tabs 10/30/22 valacyclovir 1 gram tablet 1,000 mg PO TID #20 tabs 10/30/22 oseltamivir 75 mg capsule (Tamiflu) 75 mg PO Q12H 5 days #10 caps 03/21/24 albuterol sulfate 90 mcg/actuation 2 inh inhalation Q6H PRN shortness 10/29/24 breath activated powder inhaler of breath or wheezing #1 ea doxycycline hyclate 100 mg tablet 100 mg PO BID #7 tabs 08/31/25 prednisone 20 mg tablet 20 mg PO BID #10 tabs 10/29/24 Allergies Allergy/AdvReac Type Severity Reaction Status Date / Time No Known Allergies Allergy Unknown Verified 12/19/24 08:38 Review of Systems Review of Systems: All other systems are reviewed and are negative Constitutional: Reports as per HPI and Reports no additional constitutional complaints Eyes: Reports as per HPI and Reports no additional eye complaints Reports system reviewed and no additional complaints, except as documented Cardiovascular: Reports as per HPI and Reports no additional cardiovascular complaints Respiratory: Reports as per HPI and Reports no additional respiratory complaints Gastrointestinal: Reports as per HPI and Reports no additional gastrointestinal complaints Genitourinary: Reports no additional female genitourinary complaints Musculoskeletal: Reports no additional musculoskeletal complaints Skin/Breast: Reports system reviewed and no additional complaints, except as docu Psychiatric: Reports no additional psychiatric complaints Endocrine: Reports no additional endocrine complaints Hematologic/Lymphatic: Reports no additional hematologic/lymphatic complaints Allergic/Immunologic: Reports no additional allergic/immunologic complaints Reports system reviewed and no additional complaints, except as documented and Reports Abnormal speech present [facility] Past Medical History Medical History PAF (paroxysmal atrial fibrillation) Atrial fibrillation with RVR GERD (gastroesophageal reflux disease) HTN (hypertension) COPD (chronic obstructive pulmonary disease) No known health problems Surgical History No pertinent past surgical history Social History Social History Household Members: Spouse Housing: Apartment Do you presently have visiting nurse or other home services: No Alcohol intake: never Patient Tobacco Use Status: Former Tobacco user Smoked in Last 30 Days: No Use of substances other than those prescribed or required for medical reasons: No Advance Directives: No Advance Directives Information Provided: Yes service: No Current occupational status: retired Physical Exam Vital Signs: Vital Signs: Last Vital Signs Temp 97.6 F 12/19/24 10:05 Pulse 96 12/19/24 11:17 Resp 18 12/19/24 10:05 BP 116/81 12/19/24 11:17 Pulse Ox 95 12/19/24 10:05 O2 Del Method Room Air 12/19/24 10:05 BMI result Body Mass Index 29.1 Vital signs have been reviewed and appear to be correct. Blood pressure elevated. Heart rate normal. Respiratory rate normal. Temperature normal. Oxygen saturation normal. Appearance: Alert. Oriented X3. No acute distress. Head: Normal external exam. Normocephalic. Atraumatic. No Helm signs noted. No raccoon eyes noted Eyes: PERRLA. EOMI. Conjunctiva and sclera normal. Eyelids normal. ENT: TM's Normal. Pharynx normal. Uvula midline. Moist mucous membranes. No trismus noted. No drooling noted. No muffled voice noted. Neck: Normal inspection. Neck supple. FROM. No adenopathy. Thyroid Normal. No meningeal signs. No neck mass noted. CVS: Normal heart rate and rhythm. Heart sound normal. No murmurs noted. Pulses normal throughout. Respiratory: No respiratory distress. Painless inspiration. Breath sounds normal. No wheezes/rales/rhonchi noted. Chest nontender. No accessory muscle usage noted or decreased air movement noted. Abdomen: Soft and nontender. Bowel sounds normal in all 4 quadrants. No distention noted. No organomegaly noted. No visible injury noted. Back: No CVA tenderness. Full range of motion noted. Skin: Skin warm and dry. Normal skin color. Normal skin turgor. No rashes/lesions/lacerations noted. Extremities: No lower extremity edema. Extremities exhibit normal range of motion. Extremities nontender. Neuro: Oriented X 3. Cranial nerve exam: II-XII are grossly intact No motor deficit. No sensory deficit. Reflexes normal. Course Reevaluation(s) Reevaluation #1: 84-year-old male came in for evaluation of difficulty breathing, patient's exam is consistent with congestive heart failure. Otherwise stable vital signs, chest x-ray, physical exam, and lab workup are consistent with congestive heart failure. Will admit the patient for further diuresis. Time: 11:30 Medications Administered Generic Name Dose Route Start Last Admin Trade Name Freq PRN Reason Stop Dose Admin Aspirin 81 mg 12/19/24 10:45 12/19/24 11:18 Aspirin Enteric Coated 81 Mg Tablet. PO 81 mg DAILY SPEEDY Administration Discontinued Medications Generic Name Dose Route Start Last Admin Trade Name Freq PRN Reason Stop Dose Admin Albuterol Sulfate 5 mg/ 0 mg 12/19/24 09:21 12/19/24 09:29 Albuterol/Ipratropium 3 ml INHALE 12/19/24 09:22 7.5 each ONCE ONE Administration Furosemide 40 mg 12/19/24 10:44 12/19/24 11:16 Furosemide 40 Mg/4 Ml Vial IVPUSH 12/19/24 10:45 40 mg STAT STA Administration Protocol Methylprednisolone Sodium Succinate 125 mg 12/19/24 09:05 12/19/24 10:05 Methylprednisolone Sod Succ 125 Mg/2 Ml Vial IVPUSH 12/19/24 09:06 125 mg ONCE ONE Administration Nitroglycerin 0.5 inch 12/19/24 10:44 12/19/24 11:17 Nitroglycerin 2 % Oint 1 Gm Packet TRANSDERMA 12/19/24 10:45 0.5 inch ONCE ONE Administration Medical Decision Making Differential Diagnosis Differential Diagnoses: The differential diagnosis associated with the presentation includes (COPD exacerbation, pulmonary embolism, CHF, electrolyte derangement, severe anemia, pneumonia, pneumothorax, pleural effusion.) Admission/Observation Consideration of admission/observation: Escalation of care including admission/observation considered Consult Healthcare Provider Management of the patient was discussed with: Hospitalist (Melissa Frausto) Lab Data MDM Lab Attestation statement: I reviewed the patient's lab results. 12/19/24 10:00 12/19/24 10:00 Labs: Lab Results 12/19/24 12/19/24 Range/Units 10:00 10:24 WBC 7.4 (4.8-10.8) X10*3/uL RBC 4.32 L (4.60-5.80) X10*6/uL Hgb 11.8 L (14.0-18.0) g/dl Hct 37.3 L (42.0-52.0) % MCV 86.3 (80.0-98.0) fL MCH 27.3 (27.0-33.0) pg MCHC 31.6 (31.0-36.0) g/dl RDW 14.6 (11.0-16.0) % Plt Count 189 (160-400) X10*3/uL MPV 11.2 (9.4-12.4) fL Immature Gran % (Auto) 0.4 (0.0-0.4) % Neut % (Auto) 52.0 (45-73) % Lymph % (Auto) 28.6 (20-40) % [place]estone % (Auto) 11.0 (2-11) % Eos % (Auto) 7.6 H (0-4) % Baso % (Auto) 0.4 (0-2) % Lymph # (Auto) 2.1 (1.2-4.9) X10*3/uL [place]estone # (Auto) 0.8 (0.1-1.2) X10*3/uL Eos # (Auto) 0.6 H (0.0-0.4) X10*3/uL Baso # (Auto) 0.0 (0.0-0.2) X10*3/uL Abs Immat Gran (auto) 0.03 (0.00-0.03) X10*3/uL Absolute Neuts (auto) 3.8 (2.0-8.3) x10*3/uL Absolute Nucleated RBC 0.000 (0.0-0.012) X10*3/uL Nucleated RBC % (auto) 0.0 (0.0-0.2) /100WBC D-Dimer High Sensitivty < 150 NG/ML Sodium 144 (135-145) mmol/L Potassium 3.9 (3.3-5.1) mmol/L Chloride 107 (96-108) mmol/L Carbon Dioxide 27 (22-29) mmol/L Anion Gap 14 (12-20) BUN 16 (9-16) mg/dL Creatinine 0.84 (0.5-1.4) mg/dL Estim Creat Clear Calc 65.5 Estimated GFR > 60 Random Glucose 116 H (60-115) mg/dL Calcium 9.1 (8.4-10.2) mg/dL Troponin I High Sens 8.6 (<3.5-35.0) ng/L NT-Pro-B Natriuret Pep 2253.5 H (<300) pg/mL COVID-19 (ANAHY) Negative (Negative) COVID-19 Clin Com See Note Influenza Type A (DANISHA) Negative (Negative) Influenza Type B (DANISHA) Negative (Negative) Influenza A & B Note See Note Independent Interpretation I performed an independent interpretation of an: Plain X-Ray (Chest:. Mild cardiac enlargement. 2. No active pulmonary disease. No significant change from 10/29/2024.) Radiology Impression Discussion of test interpretation with radiology: I have reviewed the radiologist's reading. Critical Care Time Critical Care Time Critical Care Time: Yes Total Critical Care Time: 60 Attestation: The patient was critically ill with a high probability of imminent or life-threatening deterioration. I spent greater than 30 minutes of discontinuous time evaluating the patient, delivering critical care at the bedside, discussing evaluating data with consultants. Critical care time does not include time spent performing separately billable procedures or teaching. Time spent performing critical care was 60 minutes. Discharge Plan Discharge Clinical Impression: Congestive heart failure Patient Disposition: Admitted As Inpatient Print Language: Albanian
[2024-12-19] MEDS: Albuterol Sulfate 5 MG, Albuterol/Iprat 2.5/0.5MG 3 ML 3 ML INHALE (09:29)
[2024-12-19 10:07] LABS: MANUAL DIFF FLAG NO
--- NOTE | 2024-12-19 10:08 | PC.NURSE ---
Pt c/o constant SOB. LS wheezing, audible. dim. Was ambulatory with steady gait enroute to Room3. axox.3 daughter at bedside. non productive cough. sight increased WOB b/f treatment. reports feeling slightly better after treatment.
[2024-12-19 10:15] LABS: Hematocrit 37.3 % (42.0-52.0); Hemoglobin 11.8 g/dl (14.0-18.0); Imm Gran Abs Auto 0.03 X10*3/uL (0.00-0.03); Imm Gran Pct Auto 0.4 % (0.0-0.4); Lymphocytes Absolute Auto 2.1 X10*3/uL (1.2-4.9); Mean Corpuscular HGB Conc 31.6 g/dl (31.0-36.0); Mean Corpuscular Hemoglobin 27.3 pg (27.0-33.0); Mean Corpuscular Volume 86.3 fL (80.0-98.0); NRBC Abs Auto 0.000 X10*3/uL (0.0-0.012); NRBC Pct Auto 0.0 /100WBC (0.0-0.2); Platelet Count 189 X10*3/uL (160-400); Red Blood Count 4.32 X10*6/uL (4.60-5.80); White Blood Count 7.4 X10*3/uL (4.8-10.8)
[2024-12-19 10:30] LABS: Anion Gap 14 (12-20); Blood Urea Nitrogen 16 mg/dL (9-16); Calcium 9.1 mg/dL (8.4-10.2); Carbon Dioxide 27 mmol/L (22-29); Chloride 107 mmol/L (96-108); Creatinine Clr Calc Pharmacy 65.5; Estimated Glomerular Filt Rate > 60; Potassium 3.9 mmol/L (3.3-5.1); Sodium 144 mmol/L (135-145)
[2024-12-19 10:39] LABS: NT Pro B Type Natriuretic Pept 2253.5 pg/mL (<300); Troponin-I High Sensitivity 8.6 ng/L (<3.5-35.0)
[2024-12-19 10:52] LABS: COVID-19 Test Negative (Negative); IDNOW Serial# 55D5AD1C; IDNOW Serial# 58CA691E; Influenza B2 Negative (Negative)
[2024-12-19] MEDS: Furosemide 40 MG/4 ML VIAL IVPUSH ×2 (11:16→17:58)
[2024-12-19 11:17] LABS: D Dimer High Sensitivity < 150 NG/ML
[2024-12-19] MEDS: Nitroglycerin 2 % Oint 1 GM Packet 0.5 INCH TRANSDERMA (11:17)
[2024-12-19] MEDS: Aspirin Enteric Coated 81 MG TABLET.DR PO (11:18)
--- NOTE | 2024-12-19 11:36 | PM.IMHP ---
History of Present Illness Date of Service: 12/19/24 Chief Complaint: SOB/BHATIA X2 days Patient is a Kuwaiti speaker, his daughter was at the bedside, patient agreed to let his daughter translate for him, is agreeable to the risks of having a family member translate for the patient. Patient is an 84-year-old male with a PMH notable for prior nicotine smoker-1 ppd per day, GERD, HTN, AFib on Eliquis, prior a UD who has been diagnosed with COPD and has been having escalating doses of nebulizers without relief for the past 2 weeks. The daughter saw him significantly worse and decided to bring him in to the ED. Patient's daughter denies any sick contacts, fever, chills, nausea, vomiting. She reports that he had relapsed from nicotine cessation for awhile after receiving COPD diagnosis and hence likely his breathing difficulties worsened. Patient lives with his and daughter visits them. Workup for infectious etiology and imaging thus far negative for pneumonia, no white count, no hypoxia and hence I do not believe that he met SIRS criteria hence I am not initiating him on any antibiotics. He treating him with steroids and doxycycline, for possible underlying HFpEF, initiating him on Lasix. Patient being admitted for further medical management of acute exacerbation of COPD requiring IV steroids and IV Lasix and close monitoring. Review of Systems Review of Systems: Yes all other systems are reviewed and are negative [facility] Medical History (Updated 12/19/24 @ 14:44 by Nancy Scott MD) PAF (paroxysmal atrial fibrillation) Atrial fibrillation with RVR GERD (gastroesophageal reflux disease) HTN (hypertension) COPD (chronic obstructive pulmonary disease) No known health problems Surgical History No pertinent past surgical history Social History Household Members: Spouse Housing: Apartment Do you presently have visiting nurse or other home services: No Alcohol intake: never Patient Tobacco Use Status: Former Tobacco user Smoked in Last 30 Days: No Use of substances other than those prescribed or required for medical reasons: No Advance Directives: No Advance Directives Information Provided: Yes service: No Current occupational status: retired Meds Allergies Allergy/AdvReac Type Severity Reaction Status Date / Time No Known Allergies Allergy Unknown Verified 12/19/24 08:38 Active Medications: Current Medications Aspirin (Aspirin Enteric Coated 81 Mg Tablet.) 81 mg PO DAILY SPEEDY Last Admin: 12/19/24 11:18 Dose: 81 mg Home Medications ?Medication ?Instructions ?Recorded ?Confirmed ?Last Taken ?Type albuterol sulfate 90 mcg/actuation 1 puff inhalation QID PRN wheezing 01/13/21 12/19/24 12/18/24 History aerosol inhaler fluticasone 500 mcg-salmeterol 50 1 puff inhalation BEDTIME 01/13/21 12/19/24 12/18/24 History mcg/dose blistr powdr for inhalation (Wixela Inhub) omeprazole 20 mg capsule,delayed 20 mg PO DAILY 01/13/21 12/19/24 12/18/24 History release albuterol sulfate 2.5 mg/3 mL 2.5 mg inhalation Q6H PRN wheezing 12/19/24 12/19/24 Unknown History (0.083 %) solution for nebulization gabapentin 300 mg capsule 300 mg PO TID 12/19/24 12/19/24 12/18/24 History metoprolol tartrate 25 mg tablet 25 mg PO BID 12/19/24 12/19/24 12/18/24 History mirtazapine 7.5 mg tablet 7.5 mg PO BEDTIME insomnia 12/19/24 12/19/24 12/18/24 History montelukast 10 mg tablet 10 mg PO QPM sinusitis 12/19/24 12/19/24 12/18/24 History simvastatin 40 mg tablet 40 mg PO DAILY 12/19/24 12/19/24 12/18/24 History Physical Exam Vital Signs and Narrative: Vital Signs: Last Vital Signs Temp 97.6 F 12/19/24 10:05 Pulse 96 12/19/24 11:17 Resp 18 12/19/24 10:05 BP 116/81 12/19/24 11:17 Pulse Ox 95 12/19/24 10:05 O2 Del Method Room Air 12/19/24 10:05 BMI result Body Mass Index 29.1 General: AOx3, no acute distress Resp: Bilateral wheezing CVS: S1, S2, RRR GI: +BS, NT, no distention Skin: Warm, dry Neuro: Motor grossly intact bilaterally Extremities: Mild bilateral pitting pedal edema Psych: Appropriate affect Results Labs 12/19/24 10:00 12/19/24 10:00 Labs: Laboratory Results - last 24 hr 12/19/24 12/19/24 10:00 10:24 MCV 86.3 MCH 27.3 MCHC 31.6 RDW 14.6 Plt Count 189 MPV 11.2 Immature Gran % (Auto) 0.4 Neut % (Auto) 52.0 Lymph % (Auto) 28.6 Bonner % (Auto) 11.0 Eos % (Auto) 7.6 H Baso % (Auto) 0.4 Lymph # (Auto) 2.1 Bonner # (Auto) 0.8 Eos # (Auto) 0.6 H Baso # (Auto) 0.0 Abs Immat Gran (auto) 0.03 Absolute Neuts (auto) 3.8 Absolute Nucleated RBC 0.000 Nucleated RBC % (auto) 0.0 D-Dimer High Sensitivty < 150 Anion Gap 14 Estim Creat Clear Calc 65.5 Estimated GFR > 60 Random Glucose 116 H Calcium 9.1 Troponin I High Sens 8.6 NT-Pro-B Natriuret Pep 2253.5 H COVID-19 (ANAHY) Negative COVID-19 Clin Com See Note Influenza Type A (DANISHA) Negative Influenza Type B (DANISHA) Negative Influenza A & B Note See Note Imaging Radiologist's Impressions: Impressions Chest X-Ray 12/19/24 09:00 IMPRESSION: 1. Mild cardiac enlargement. 2. No active pulmonary disease. No significant change from 10/29/2024. Electronically signed by: Ryan Laws MD 12/19/2024 09:09 AM EDT Assessment and Plan (1) COPD (chronic obstructive pulmonary disease): Status: Acute Plan Patient is a Kuwaiti speaker, his daughter was at the bedside, patient agreed to let his daughter translate for him, is agreeable to the risks of having a family member translate for the patient. Patient is an 84-year-old male with a PMH notable for prior nicotine smoker-1 ppd per day, GERD, HTN, AFib on Eliquis, prior a UD who has been diagnosed with COPD and has been having escalating doses of nebulizers without relief for the past 2 weeks. Patient was noted to have acute exacerbation of COPD requiring IV steroids. # AE COPD post resumption of nicotine Steroid treatment with IV steroid in the ED with quick improvement, hence switched him to p.o. prednisone from tomorrow scheduled and p.r.n. breathing treatment, albuterol and DuoNeb Outpatient palm follow-up advised for the daughter Patient does not appear to be in sepsis, did not meet SIRS criteria # Nicotine dependence Smoking cessation advised Nicotine replacement #Paroxysmal AFib continue home Eliquis #History of CAD-continue aspirin # GERD continue home Eliquis # HTN-continue home meds, sepsis less likely however completely can not be ruled out Admission is indicated for this patient with COPD exacerbation due to the presence of increased respiratory distress, hypoxemia requiring supplemental oxygen, and inadequate response to initial outpatient management. The patient requires close monitoring for potential respiratory failure, escalation of therapy including nebulized bronchodilators, corticosteroids, and possible antibiotics, as well as assessment for complications such as pneumonia or cardiac involvement. Inpatient care will allow for timely intervention and adjustment of therapy to optimize respiratory status and prevent further deterioration. This note is constructed using voice recognition software. While every effort has been made to ensure accuracy, sports equipment repairer errors may have been included. Quality Stroke Does the patient have a stroke diagnosis?: No VTE Prior VTE?: No VTE Risk Level:: Medical - moderate - high VTE Device Contraindication: N/A - Device Ordered VTE Drug Contraindication: N/A - Med Ordered
--- NOTE | 2024-12-19 12:43 | PC.NURSE ---
Pt reports feeling well. SOB at rest remains present. Able to ambulate w/o increased WOB.
--- NOTE | 2024-12-19 14:14 | PHA.MEDREC ---
Addendum entered by Lo Gan RPh 12/19/24 14:38: MED REC REVIEWED BY [facility] Original Note: Pharmacy Consult ? Medication Reconciliation Pharmacy has completed the medication reconciliation. Spoke to patient through employee representative service to confirm med list. Patient is a poor historian, Instructed me to call [facility] pharmacy to get a list. Utilized claims to confirm med rec. Patient states he last had his medications yesterday.
--- NOTE | 2024-12-19 17:51 | HO.NURTONUR ---
over a week of non productive cough and increasing SOB. overuse of inhalers and nebs hasn't helped. Improvement at ED with 7.5 albuterol and solumedrol. Elevated Pro BNP at 2,253. Has been urinating frequently after lasix. no longer SOB at rest. Skin pwd. LS dim. axox3 persian speaking. understands some polish
--- NOTE | 2024-12-19 18:01 | ECG_ITS ---
Test Reason : sob Blood Pressure : */* mmHG Vent. Rate : 100 BPM Atrial Rate : * BPM P-R Int : * ms QRS Dur : 84 ms QT Int : 392 ms P-R-T Axes : * 4 -17 degrees QTcB Int : [address] & T wave abnormality, consider anterior ischemia Prolonged QT Abnormal ECG When compared with ECG of 29-Oct-2024 12:53, T wave inversion now evident in Anterior leads QT has lengthened Referred By: Nancy Scott Electronically Signed By: MEJIA FALL MD
--- NOTE | 2024-12-19 21:23 | PC.NURSE ---
Pt A&Ox3, denies shortness of breath or pain. States feeling much better . Breathing unlabored, skin p/w/d. Pt medicated as charted. Pt ambulates to bathroom, steady on feet and no increased work of breathing w/ ambulation.
[2024-12-20] MEDS: 0.9 % Sodium Chloride Flush 3 ML SYRINGE IVFLUSH (00:22)
[2024-12-20 01:48] VITALS: BP 100/58; PULSE 88; RESP 16; TEMP 36.7; O2SAT 93
[2024-12-20 06:14] VITALS: BP 98/65; PULSE 80; RESP 14; TEMP 36.6; O2SAT 92
[2024-12-20 09:14] VITALS: BP 94/50; PULSE 87; RESP 16; O2SAT 94
[2024-12-20] MEDS: Aspirin Enteric Coated 81 MG TABLET.DR PO (09:17)
[2024-12-20] MEDS: Furosemide 40 MG/4 ML VIAL IVPUSH (09:17)
[2024-12-20] MEDS: Nicotine 21 MG PATCH.TD24 TRANSDERMA (09:18)
--- NOTE | 2024-12-20 10:00 | PC.NURSE ---
assumed care of patient at 0700, patient is awake, alert and oriented. patient bed remade with clean linens and patient is sitting up in recliner for breakfast. patient medicated per APR.
--- NOTE | 2024-12-20 12:26 | MHC.CM.PN ---
CM met with Patient at bedside, in the ED, with the assist of a [facility] [place] [facility] [employer] and addressed REYES with him; original was given to Patient and a copy will be placed on the chart. Patient lives in an apartment with his Daughter/HCP/Hannah and he uses a cane to assist with mobility. Home/ self care is Patient's goal and CM has initiated and will follow for dc planning. PCP is Dr. Junito Peña and Daughter will transport to home at dc.
--- NOTE | 2024-12-20 13:00 | PC.NURSE ---
patient is sitting up and eating lunch while in recliner
[2024-12-20 13:22] VITALS: BP 115/70; PULSE 92; RESP 18; O2SAT 97
--- NOTE | 2024-12-20 13:31 | HO.NURTONUR ---
patient Miguelito HamiltonM DNR/DNI is a very pleasant primarily iranian speaking patient who presented to the ED with increased sob x2 weeks with copd hx. patients stated that he recently started smoking again after his copd diagnosis which she believes that is making his sob worse. patient CXR negative for pneumonia. patient admit for copd exacerbation, plan for IV steroids/iv Lasix and prn breathing treatments. patient is awake, alert and oriented with standby assist to the bathroom. patient has nicotine patch on right shoulder at this time, dated and timed.
--- NOTE | 2024-12-20 15:47 | MHC.CM.PN ---
Patient has been medically cleared for dc to home today, self care.
[2024-12-20 15:49] VITALS: BP 129/62; PULSE 86; RESP 16; TEMP 36.7; O2SAT 92
--- NOTE | 2024-12-20 16:16 | P.DS_ITS ---
DS: Providers Provider Date of Service: 12/20/24 Date of admission: 12/19/24 11:49 Date of discharge: 12/20/24 Primary care physician: Junito Peña MD DS: Diagnosis Discharge Diagnosis (1) COPD (chronic obstructive pulmonary disease): Status: Resolved DS: Summary Hospital Course Hospital Course: From admission HPI: Date of Service: 12/19/24 Chief Complaint: SOB/BHATIA X2 days Patint is a Slovak speaker, his daughter was at the bedside, patient agreed to let his daughter translate for him, is agreeable to the risks of having a family member translate for the patient. Patient is an 84-year-old male with a PMH notable for prior nicotine smoker-1 ppd per day, GERD, HTN, AFib on Eliquis, prior a UD who has been diagnosed with COPD and has been having escalating doses of nebulizers without relief for the past 2 weeks. The daughter saw him significantly worse and decided to bring him in to the ED. Patient's daughter denies any sick contacts, fever, chills, nausea, vomiting. She reports that he had relapsed from nicotine cessation for awhile after receiving COPD diagnosis and hence likely his breathing difficulties worsened. Patient lives with his and daughter visits them. Workup for infectious etiology and imaging thus far negative for pneumonia, no white count, no hypoxia and hence I do not believe that he met SIRS criteria hence I am not initiating him on any antibiotics. He treating him with steroids and doxycycline, for possible underlying HFpEF, initiating him on Lasix. Patient being admitted for further medical management of acute exacerbation of COPD requiring IV steroids and IV Lasix and close monitoring. Hospital course: Pt was admitted to the hospital under observation for a COPD exacerbation not alleviated by home inhalers. Pt was treated with breathing treatments and IV steroids to good effect and at time of discharge breathing back at baseline without any significant SOB either at rest or with ambulation. Cough improved and he is back to your baseline 2-3 L supplemental oxygen as necessary. Workup was negative for underlying pneumonia, and pt will be discharged home on a 5 day prednisone taper. Of note, workup in the ED showed that pt's BNP was found to be elevated and he received one dose of IV Lasix. Underwent an echocardiogram which was reassuring, showing normal LV ejection fracture of 55-60% with mild LVH and moderately dilated right ventricle with preserved contractility. Pt did not clinically appear fluid overloaded and CXR was negative for pulmonary edema. Currently no need for home Lasix. Elevated BNP likely secondary to COPD exacerbation. Pt should follow up with PCP in 1 week for standard post hospitalization visit. Pt should continue all of his other home medications. Time Attestation Discharge Coordination Time (in mins): 35 Quality: Safe Use of Opioids Does Pt have an Active Cancer Diagnosis on the Problem List?: No Quality: Stroke Does the patient have a stroke diagnosis?: No Physical Exam Exam: Exam: General: AOx3, no acute distress Resp: CTA bilaterally. No wheezing, rales, or ronchi noted CVS: S1, S2, RRR GI: +BS, NT, no distention Skin: Warm, dry Neuro: Cranial nerves II-XII grossly intact bilaterally. Motor grossly intact bilaterally Extremities: No edema Psych: Appropriate affect Vital Signs: Vital Signs: Last Vital Signs Temp 98.0 F 12/20/24 15:49 Pulse 86 12/20/24 15:49 Resp 16 12/20/24 15:49 BP 129/62 12/20/24 15:49 Pulse Ox 92 12/20/24 15:49 O2 Del Method Room Air 12/20/24 15:49 BMI result Body Mass Index 29.1 Discharge Plan Discharge Anticipated Discharge Date/Time: 12/20/24 15:23 Patient Disposition: Home, Self-Care Discharge Diagnosis: COPD exacerbation Referrals: Junito Peña MD [Primary Care Provider, Internal Medicine] - 1 Week Discharge Medications: New prednisone 20 mg tablet 40 mg PO DAILY Qty: 8 0RF Rx Instructions: Short prednisone taper: Take 2 tablets (40mg) once daily for three days, then take 1 tablet (20mg) once daily for an additional 2 days. Start on 12/21 and end on 12/25 Continued omeprazole 20 mg capsule,delayed release(DR/EC) 20 mg PO DAILY albuterol sulfate 90 mcg/actuation HFA aerosol inhaler 1 puff inhalation QID PRN (Reason: wheezing) fluticasone propion-salmeterol [Wixela Inhub] 500-50 mcg/dose blister with device 1 puff inhalation BEDTIME Eliquis 5 mg tablet 5 mg PO BID Qty: 60 0RF simvastatin 40 mg tablet 40 mg PO DAILY gabapentin 300 mg capsule 300 mg PO TID metoprolol tartrate 25 mg tablet 25 mg PO BID montelukast 10 mg tablet 10 mg PO QPM mirtazapine 7.5 mg tablet 7.5 mg PO BEDTIME albuterol sulfate 2.5 mg /3 mL (0.083 %) solution for nebulization 2.5 mg inhalation Q6H PRN (Reason: wheezing) Discharge Orders: Discharge Order (Routine); Ordered 12/20/24 Ordered By: Simone Franks Activity on Discharge: As tolerated Stand Alone Forms: Patient Portal Discharge page Print Language: Dutch Care Plan Goals: See below Health Concerns: COPD exacerbation Acute on chronic hypoxic respiratory failure Congestive heart failure Plan of Treatment: You were admitted to the hospital for a COPD exacerbation that was not alleviated by home inhalers. You were treated with breathing treatments and IV steroids to good effect. At time of discharge you report your breathing is now back to baseline without any significant SOB either at rest or with ambulation. You are now back to your baseline 2-3 L supplemental oxygen as necessary. Cough is improved. Workup was negative for underlying pneumonia, and you will be discharged home on a 5 day prednisone taper. Your BNP was also found to be elevated and you had an echocardiogram which showed -- take prednisone 40 mg daily for the next 3 days, then 20 mg daily for an additional 2 days, starting on 12/21 and ending on 12/25 -- your BNP was shown to be elevated which could be a sign of congestive heart failure; however, you did not clinically appear fluid overloaded and CXR was negative for pulmonary edema. You underwent echocardiogram which showed normal LV ejection fracture of 55-60% with mild LVH and moderately dilated right ventricle with preserved contractility. You were treated with IV Lasix, but echo findings are reassuring. Currently you do not need home Lasix. Elevated BNP likely secondary to COPD exacerbation. -- follow up with PCP in 1 week for standard post hospitalization follow up visit Assessment: See discharge summary Discharge Date/Time: 12/20/24 16:17
== END 2024-12-20 16:17 | disposition home or self-care (01) ==
LOC: HO.ED 10:45 → HO.EDOVER 12:01 → HO.IMC 12-20 14:13 → HO.EDOVER 12-20 14:14
PROVIDERS: Admitting Provider Student in an Organized Health Care Education/Training Program; Emergency Provider Emergency Medicine; PCP Family Medicine; Visit Provider Student in an Organized Health Care Education/Training Program
DX: J44.1 Chronic obstructive pulmonary disease with (acute) exacerbation (principal); R06.02 Shortness of breath; R05.9 Cough, unspecified; I48.0 Paroxysmal atrial fibrillation; K21.9 Gastro-esophageal reflux disease without esophagitis; I10 Essential (primary) hypertension; R94.31 Abnormal electrocardiogram [ECG] [EKG]; Z03.818 Encounter for observation for suspected exposure to other biological agents ruled out; Z87.891 Personal history of nicotine dependence; Z79.899 Other long term (current) drug therapy
CPT/HCPCS: 36415; 71046; 80048; 83880; 84484; 85025; 85379; 87502; 87635; 93005; 93306; 94640; 96374; 96375; 96376; 99222; 99285; J1938; J2919

== ENCOUNTER → 2024-12-19 08:42 | Outpatient (BNV) | payer OTHER, SELFPAY | PROVIDERS: Emergency Provider Emergency Medicine; PCP Family Medicine; Visit Provider Radiology Diagnostic Radiology | DX: I51.7 Cardiomegaly (principal) | CPT/HCPCS: 71046 ==

== ENCOUNTER → 2024-12-19 11:49 | Outpatient (BNV) | payer OTHER, SELFPAY | PROVIDERS: Admitting Provider Student in an Organized Health Care Education/Training Program; Emergency Provider Emergency Medicine; PCP Family Medicine; Visit Provider Student in an Organized Health Care Education/Training Program | DX: J44.9 Chronic obstructive pulmonary disease, unspecified (principal) | CPT/HCPCS: 99222 ==

== ENCOUNTER 2025-01-16 19:35 | Emergency (ER) | payer OTHER, SELFPAY ==
--- NOTE | ~2025-01-16 | CT_ITS ---
CLINICAL HISTORY: SOB, pna? CT chest without contrast Comparison: None provided Findings: NECK BASE: Limited views of the thyroid are unremarkable. LUNGS/PLEURA: No focal consolidation. PULM VASCULAR: Poorly evaluated without IV contrast. MEDIASTINUM: No masses or lymphadenopathy. CARDIAC: No pericardial effusion. No cardiomegaly. AORTA: No aneurysm. CHEST WALL: No masses or axillary lymphadenopathy. LIMITED ABDOMEN: Small hiatal hernia. BONES: No acute fracture. IMPRESSION: 1. No acute abnormality. No pneumonia. This document has been electronically signed by: Ramona Mansfield MD on 01/17/2025 00:50:12
--- NOTE | ~2025-01-16 | CT_ITS ---
EXAMINATION: CT ABDOMEN AND PELVIS WITHOUT CONTRAST CLINICAL INFORMATION: Concerning pneumoperitoneum. COMPARISON: October 30, 2022 TECHNIQUE: Multidetector volumetric imaging was performed from the superior aspect of the liver through the pubic symphysis. Sagittal and coronal reformatted images were obtained on the technologist's workstation. This CT examination was performed using dose optimization techniques as appropriate, variously including the following: *Automated exposure control *Adjustment of mA and/or kV according to patient size (this includes techniques or standardized protocols for targeted exams where dose is matched to indication/reason for exam; i.e. extremities or head) *Use of iterative reconstruction technique DLP: 624 mGy-cm FINDINGS: Submitted for interpretation on January 17, 2025 at 8:15 AM. Inadequate evaluation of the intra-abdominal solid organs and vascular structures due to lack of IV contrast. LUNG BASES: Linear attenuation abnormalities in the lung bases lingula and subpleural subcentimeter nodules, right lower hemithorax. LIVER, GALLBLADDER, AND BILIARY TREE: Liver measures 13 cm. Gallbladder is contracted without pericholecystic fluid collection or gallbladder wall thickening. No gross intrahepatic or extrahepatic biliary ductal dilatation. PANCREAS: No peripancreatic fluid collections. No gross main pancreatic ductal dilatation. SPLEEN: 10 cm. ADRENAL GLANDS: No nodular lesions. KIDNEYS AND URETERS: No hydronephrosis. No nephrolithiasis. No dilatation of the ureters. BLADDER: Fluid-filled nondistended. GASTROINTESTINAL TRACT: Gas filled prominent large intestine. Stool within the rectosigmoid colon. Abundant stool in the right hemicolon. No pneumatosis intestinalis. Appendix is normal. Few scattered diverticula amount mostly at the sigmoid colon. No pneumoperitoneum. No ascites. No fluid collections, peritoneal cavity. Hiatal hernia, moderate to large volume. ABDOMINAL WALL: No umbilical hernia. Fat-containing left inguinal hernia. LYMPH NODES: Nonspecific prominent mesenteric and retroperitoneal and inguinal lymph nodes. VASCULAR: Heart appears enlarged. Calcified plaques throughout the aorta without aneurysm. Calcified plaques in the iliac arteries and femoral arteries. PELVIC VISCERA: Inadequate evaluation. Small prostate gland. OSSEOUS STRUCTURES: Levoconvex rotoscoliosis apex at L3-4. Multilevel thoracolumbar spondylosis prominent from L3-4 to L5 S1. Mild degenerative changes in the coxofemoral joints. Degenerative changes in the sacroiliac joints.. CT/CT abdomen pelvis wo IV con IMPRESSION: No pneumoperitoneum. Gas filled prominent large intestine. Diverticular disease. Hiatal hernia concerning for gastroesophageal reflux. Cardiomegaly. Fleischner guidelines were followed. Electronically signed by: King Peoples MD 01/17/2025 08:20 AM JANA
--- NOTE | ~2025-01-16 | XR_ITS ---
CLINICAL HISTORY: sob 2 view chest x-ray Comparison: 10/29/2024 Findings: Lungs are clear without acute infiltrates. No pneumothorax. Heart size enlarged. No acute bony abnormalities. Impression: No acute processes This document has been electronically signed by: Justino Valladares MD on 01/16/2025 20:28:26
[2025-01-16 19:45] VITALS: BP 131/72; PULSE 98; RESP 24; TEMP 36.6; O2SAT 96; BMI 31.1
--- NOTE | 2025-01-16 19:46 | ED.SOB ---
HPI - SOB/Dyspnea General Chief Complaint: Dyspnea Stated Complaint: Shortness Of Breath Time Seen by Provider: 01/16/25 22:11 Source: patient and family Mode of arrival: ambulatory Limitations: no limitations History of Present Illness ED Provider: Dr. Rocio Isaac HPI Narrative: Patient comes to the emergency room complaining of shortness of breath. Patient's family state that it has been going on for several weeks, even before he was recently discharged from the hospital. Patient states that he has been having shortness of breath with exertion and lying down. Patient states that about a month ago he was diagnosed with CHF. Patient denies any recent URIs. Patient also known to have history of COPD for which he was hospitalized in 12/19/2024 Related Data Home Medications ?Medication ?Instructions ?Recorded ?Confirmed albuterol sulfate 90 mcg/actuation 1 puff inhalation QID PRN wheezing 01/13/21 12/19/24 aerosol inhaler fluticasone 500 mcg-salmeterol 50 1 puff inhalation BEDTIME 01/13/21 12/19/24 mcg/dose blistr powdr for inhalation (Meghann Inhub) omeprazole 20 mg capsule,delayed 20 mg PO DAILY 01/13/21 12/19/24 release albuterol sulfate 2.5 mg/3 mL 2.5 mg inhalation Q6H PRN wheezing 12/19/24 12/19/24 (0.083 %) solution for nebulization gabapentin 300 mg capsule 300 mg PO TID 12/19/24 12/19/24 metoprolol tartrate 25 mg tablet 25 mg PO BID 12/19/24 12/19/24 mirtazapine 7.5 mg tablet 7.5 mg PO BEDTIME insomnia 12/19/24 12/19/24 montelukast 10 mg tablet 10 mg PO QPM sinusitis 12/19/24 12/19/24 simvastatin 40 mg tablet 40 mg PO DAILY 12/19/24 12/19/24 Previous Rx's ?Medication ?Instructions ?Recorded apixaban 5 mg tablet (Eliquis) 5 mg PO BID #60 tabs 01/14/21 prednisone 20 mg tablet 40 mg (2 x 20 mg) PO DAILY #8 tabs 12/20/24 albuterol sulfate 2.5 mg/3 mL 2.5 mg (3 mL) inhalation Q4-6H PRN 01/17/25 (0.083 %) solution for nebulization shortness of breath or wheezing #75 mL albuterol sulfate 90 mcg/actuation 2 puff inhalation Q4-6H PRN 01/17/25 aerosol inhaler (Ventolin HFA) shortness of breath or wheezing #8.5 grams azithromycin 250 mg tablet 250 mg PO DAILY 4 days #4 tabs 01/17/25 cefuroxime axetil 500 mg tablet 500 mg PO BID #9 tabs 01/17/25 prednisone 50 mg tablet 50 mg PO DAILY #5 tabs 01/17/25 Allergies Allergy/AdvReac Type Severity Reaction Status Date / Time No Known Allergies Allergy Unknown Verified 01/16/25 19:51 Review of Systems Review of Systems: Constitutional : No Weight loss, No Fever, No Chills, No Night Sweats, No Fatigue, No Malaise ENT/Mouth : No Hearing loss, No Ear Pain, No Nasal Congestion, No Sinus Pain, No Hoarseness, No sore throat, No Rhinorrhea, No Swallowing Difficulty Eyes: No Eye Pain, No Swelling, No Redness, No Foreign Body, No Discharge, No Vision Changes Cardiovascular : No Chest Pain, complaining of dyspnea at rest and with exertion, complaining of orthopnea, no palpitations Respiratory : Complaining of cough, wheezing shortness of breath and orthopnea Gastrointestinal : No Nausea, No Vomiting, No Diarrhea, No Constipation, No abdominal Pain, No Hematochezia, No Melena Genitourinary : no irregular bleeding, No Dysuria, No Urinary Frequency, No Hematuria, No Urinary Incontinence, No Urgency, No Flank Pain, No Urinary Flow Changes, No Hesitancy Musculoskeletal : No joint pain, No Myalgias, No Joint Swelling Skin : No Skin Lesions, No rash Neuro : No Weakness, No Numbness, No Paresthesias, No Loss of Consciousness, No Dizziness, No Headache Psych : No Anxiety/Panic, No Depression, No SI/HI/AH/VH, No Social Issues, Heme/Lymph: No Bruising, No Bleeding,No Lymphadenopathy Endocrine : No Polyuria, No Polydipsia, No Temperature Intolerance PMFSH Past Medical History Medical History Congestive heart failure PAF (paroxysmal atrial fibrillation) Atrial fibrillation with RVR GERD (gastroesophageal reflux disease) HTN (hypertension) COPD (chronic obstructive pulmonary disease) No known health problems Surgical History No pertinent past surgical history Social History Social History Household Members: Spouse Housing: Apartment Do you presently have visiting nurse or other home services: No Alcohol intake: never Patient Tobacco Use Status: Former Tobacco user Advance Directives: No Advance Directives Information Provided: No service: No Current occupational status: retired Physical Exam Exam: Exam: Appearance: Alert. Oriented X3. No acute distress. Eyes: Pupils equal, round and reactive to light. ENT: Pharynx normal. Neck: Normal inspection. Neck supple. No lymph nodes noted. No crepitus CVS: Normal heart rate and rhythm. Pulses normal. Normal S1 and S2 Respiratory: Bilateral wheezing, no rales or crackles Abdomen: Soft and nontender. No rigidity. No distention. Skin: Skin warm and dry. Normal skin color. Normal skin turgor. Extremities: No lower extremity edema. No Lacerations. No Rash Neuro: Oriented X 3. No motor deficit. No sensory deficit. Moving all extremities. No slurred speech. CN 2 through 12 grossly intact Psych: calm, cooperative, normal affect Vital Signs: Vital Signs: Last Vital Signs Temp 97.9 F 01/17/25 01:43 Pulse 96 01/17/25 01:43 Resp 20 01/17/25 01:43 BP 138/79 01/17/25 01:43 Pulse Ox 95 01/17/25 01:43 O2 Del Method Room Air 01/17/25 01:43 BMI result Body Mass Index 31.1 Course Course Course Narrative: This is an RME: Additional HPI, ROS, PE not included below will be deferred to primary provider. RME assessment and note performed by: Marilyn Zimmerman PA-C 84-year-old male with a PMH notable for prior nicotine smoker-1 ppd per day, GERD, HTN, AFib on Eliquis, who presents to the ER accompanied by family with concerns of SOB and LE swelling. Was admitted here at [facility] [place] on 12/19 for CHF. Reports that he has not improved significantly since admission. 1+ pedal edema noted BL. Plan: Labs, CXR, viral swabs, EKG, further ER eval needed Reevaluation(s) Reevaluation #1: 3:59 AM 01/17/2025 (Wendi HERNANDEZ): The patient was signed out to this provider at shift change. In summary the patient is an 84-year-old male with history of COPD, GERD, hypertension, and atrial fibrillation on Eliquis, who was recently admitted for shortness of breath which was determined to have been caused by COPD rather than CHF. Patient was discharged home however returns today stating recurrence of shortness of breath. The patient was treated with nebulizer therapy, steroids, and prophylactic antibiotics. The patient was signed out to this provider pending reassessment for improvement in his symptoms and a CT abdomen which was still pending. The patient's CT abdomen has resulted and shows no acute intra-abdominal pathology, there is mildly prominent nonspecific air-filled colon. The patient reports subjective improvement in his symptoms following interventions in the ED. Patient will be discharged with the care plan originally outlined by Dr. Isaac. Medications Administered Discontinued Medications Generic Name Dose Route Start Last Admin Trade Name Freq PRN Reason Stop Dose Admin Albuterol Sulfate 7.5 mg/ 10 mg 01/17/25 01:42 01/17/25 01:44 Albuterol Sulfate 2.5 mg INHALE 01/17/25 01:43 10 mg ONCE ONE Administration Azithromycin 500 mg 01/17/25 02:10 01/17/25 02:37 Azithromycin 500 Mg Tablet PO 01/17/25 02:11 500 mg ONCE ONE Administration Cefuroxime Axetil 500 mg 01/17/25 02:10 01/17/25 02:37 Cefuroxime Axetil 500 Mg Tablet PO 01/17/25 02:11 500 mg ONCE ONE Administration Magnesium Sulfate 2 gm in 50 mls @ 150 mls/hr 01/16/25 23:29 01/17/25 00:36 Magnesium Sulfate/H2o IV 01/16/25 23:48 Infused ONCE ONE Infusion Methylprednisolone Sodium Succinate 125 mg 01/16/25 23:29 01/17/25 00:17 Methylprednisolone Sod Succ 125 Mg/2 Ml Vial IVPUSH 01/16/25 23:30 125 mg ONCE ONE Administration Medical Decision Making Medical Decision Making MDM Narrative: My interpretation of EKG: Atrial fibrillation, rate controlled in the in the 90s, AFib is chronic, in no ST segment depression or elevation, no T-wave inversion, QTC 477 My interpretation of labs: No significant abnormality in patient's hematology and chemistry, at baseline, chemistry within normal limits, normal magnesium, normal troponin, pro BNP 4625. I reviewed patient's inpatient notes. Hospitalist's discussed with the patient and the family that the most likely cause for the BNP elevation is chronic COPD. An echocardiogram was done and showed an ejection fraction of 55%, unlikely to be congestive heart failure. Patient was sent home without Lasix since it was considered that patient shortness of breath was secondary to chronic lung disease rather than CHF. Serology was negative for influenza RSV and COVID Patient was ambulated around the emergency room, patient's oxygen saturation stayed above 97% Patient and family state that he is compliant with Eliquis for atrial fibrillation. Making PE less likely. Chest x-ray did not show any acute abnormality. However, patient states that when he walks he gets short of breath. A chest CT was ordered, no acute findings. Patient receiving a nebulization treatment. As we were doing the CT scan of the chest, the engine setter showed a large amount of abdominal distention/air. Patient states that he does not have any significant abdominal pain. A CT scan of the abdomen was ordered. Patient is getting an nebulization treatment, overall patient states that he feels much better. Given patient's multiple comorbidities, we will empirically treat with p.o. antibiotics, azithromycin and cefuroxime. CT scan of the abdomen pelvis pending, sign-out given to my colleague DAVID Farrell Differential Diagnosis Differential Diagnoses: The differential diagnosis associated with the presentation includes (Asthma exacerbation, chronic lung disease, CHF, deconditioning) Admission/Observation Consideration of admission/observation: Escalation of care including admission/observation considered (Given patient's past medical history and presentation and complaints, observation/admission was considered) Lab Data MDM Lab Attestation statement: I reviewed the patient's lab results. 01/16/25 20:04 01/16/25 20:04 Labs: Lab Results 01/16/25 01/16/25 Range/Units 20:02 20:04 WBC 6.3 (4.8-10.8) X10*3/uL RBC 4.17 L (4.60-5.80) X10*6/uL Hgb 11.7 L (14.0-18.0) g/dl Hct 36.6 L (42.0-52.0) % MCV 87.8 (80.0-98.0) fL MCH 28.1 (27.0-33.0) pg MCHC 32.0 (31.0-36.0) g/dl RDW 14.6 (11.0-16.0) % Plt Count 240 D (160-400) X10*3/uL MPV 10.4 (9.4-12.4) fL Immature Gran % (Auto) 0.5 H (0.0-0.4) % Neut % (Auto) 53.1 (45-73) % Lymph % (Auto) 25.7 (20-40) % Darke % (Auto) 14.5 H (2-11) % Eos % (Auto) 5.7 H (0-4) % Baso % (Auto) 0.5 (0-2) % Lymph # (Auto) 1.6 (1.2-4.9) X10*3/uL Darke # (Auto) 0.9 (0.1-1.2) X10*3/uL Eos # (Auto) 0.4 (0.0-0.4) X10*3/uL Baso # (Auto) 0.0 (0.0-0.2) X10*3/uL Abs Immat Gran (auto) 0.03 (0.00-0.03) X10*3/uL Absolute Neuts (auto) 3.3 (2.0-8.3) x10*3/uL Absolute Nucleated RBC 0.000 (0.0-0.012) X10*3/uL Nucleated RBC % (auto) 0.0 (0.0-0.2) /100WBC Sodium 142 (135-145) mmol/L Potassium 3.9 (3.3-5.1) mmol/L Chloride 109 H (96-108) mmol/L Carbon Dioxide 24 (22-29) mmol/L Anion Gap 13 (12-20) BUN 19 H (9-16) mg/dL Creatinine 1.00 (0.5-1.4) mg/dL Estim Creat Clear Calc 56.7 Estimated GFR > 60 Random Glucose 128 H (60-115) mg/dL Calcium 9.2 (8.4-10.2) mg/dL Magnesium 1.8 (1.6-2.6) mg/dL Total Bilirubin 0.4 (0.0-1.0) mg/dL Direct Bilirubin 0.1 (0.0-0.5) mg/dL AST 21 (5-37) U/L ALT 29 (0-40) U/L Alkaline Phosphatase 83 (39-117) U/L Troponin I High Sens 13.7 D (<3.5-35.0) ng/L NT-Pro-B Natriuret Pep 4624.9 H (<300) pg/mL Total Protein 6.8 (6.5-8.0) g/dL Albumin 4.1 (3.5-5.0) g/dL Influenza Type A (PCR) NEGATIVE (Negative) Influenza Type B (PCR) NEGATIVE (Negative) RSV RNA Qual (PCR) NEGATIVE (Negative) SARS-CoV-2 RNA (RT-PCR) NEGATIVE (Negative) Independent Interpretation I performed an independent interpretation of an: Plain X-Ray and CT Scan Radiology Impression Discussion of test interpretation with radiology: I have reviewed the radiologist's reading. Radiologist Impression: CT chest without contrast Comparison: None provided Findings: NECK BASE: Limited views of the thyroid are unremarkable. LUNGS/PLEURA: No focal consolidation. PULM VASCULAR: Poorly evaluated without IV contrast. MEDIASTINUM: No masses or lymphadenopathy. CARDIAC: No pericardial effusion. No cardiomegaly. AORTA: No aneurysm. CHEST WALL: No masses or axillary lymphadenopathy. LIMITED ABDOMEN: Small hiatal hernia. BONES: No acute fracture. IMPRESSION: 1. No acute abnormality. No pneumonia. Independent Historian Clinical information obtained from an independent historian. History obtained from or confirmed by: Other (Patient's daughters) Critical Care Time Critical Care Time Critical Care Time: Yes Total Critical Care Time: 50 Attestation: I have personally provided critical care time. Time includes review of lab data, radiology results, discussion with consultants, and monitoring for potential decompensation. Intervention performed as documented. Discharge Plan Discharge Clinical Impression: Chronic lung disease Patient Disposition: Home, Self-Care Instructions: Emphysema (ED) Additional Instructions: Please follow-up with your primary care physician tomorrow. If you have any worsening or new symptoms, please return to the emergency room or call 911 Prescriptions: New albuterol sulfate [Ventolin HFA] 90 mcg/actuation HFA aerosol inhaler 2 puff inhalation Q4-6H PRN (Reason: shortness of breath or wheezing) Qty: 8.5 1RF albuterol sulfate 2.5 mg /3 mL (0.083 %) solution for nebulization 2.5 mg inhalation Q4-6H PRN (Reason: shortness of breath or wheezing) Qty: 75 0RF azithromycin 250 mg tablet 250 mg PO DAILY 4 Days Qty: 4 0RF Rx Instructions: start on day 2 of therapy prednisone 50 mg tablet 50 mg PO DAILY Qty: 5 0RF cefuroxime axetil 500 mg tablet 500 mg PO BID Qty: 9 0RF No Action omeprazole 20 mg capsule,delayed release(DR/EC) 20 mg PO DAILY albuterol sulfate 90 mcg/actuation HFA aerosol inhaler 1 puff inhalation QID PRN (Reason: wheezing) fluticasone propion-salmeterol [Wixela Inhub] 500-50 mcg/dose blister with device 1 puff inhalation BEDTIME Eliquis 5 mg tablet 5 mg PO BID Qty: 60 0RF simvastatin 40 mg tablet 40 mg PO DAILY gabapentin 300 mg capsule 300 mg PO TID metoprolol tartrate 25 mg tablet 25 mg PO BID montelukast 10 mg tablet 10 mg PO QPM mirtazapine 7.5 mg tablet 7.5 mg PO BEDTIME albuterol sulfate 2.5 mg /3 mL (0.083 %) solution for nebulization 2.5 mg inhalation Q6H PRN (Reason: wheezing) prednisone 20 mg tablet 40 mg PO DAILY Qty: 8 0RF Rx Instructions: Short prednisone taper: Take 2 tablets (40mg) once daily for three days, then take 1 tablet (20mg) once daily for an additional 2 days. Start on 12/21 and end on 12/25 Print Language: Taiwanese
--- NOTE | 2025-01-16 19:48 | ECG_ITS ---
Test Reason : DYSPNEA Blood Pressure : */* mmHG Vent. Rate : 93 BPM Atrial Rate : * BPM P-R Int : * ms QRS Dur : 96 ms QT Int : 384 ms P-R-T Axes : * 52 19 degrees QTcB Int : 477 ms Atrial fibrillation Incomplete right bundle branch block Nonspecific ST abnormality Abnormal ECG When compared with ECG of 19-Dec-2024 19:00, T wave inversion no longer evident in Anterior leads Referred By: Marilyn Zimmerman Electronically Signed By: ELHAM CASTELLANOS
[2025-01-16 20:08] LABS: MANUAL DIFF FLAG NO
[2025-01-16 20:10] LABS: Hematocrit 36.6 % (42.0-52.0); Hemoglobin 11.7 g/dl (14.0-18.0); Imm Gran Abs Auto 0.03 X10*3/uL (0.00-0.03); Imm Gran Pct Auto 0.5 % (0.0-0.4); Lymphocytes Absolute Auto 1.6 X10*3/uL (1.2-4.9); Mean Corpuscular HGB Conc 32.0 g/dl (31.0-36.0); Mean Corpuscular Hemoglobin 28.1 pg (27.0-33.0); Mean Corpuscular Volume 87.8 fL (80.0-98.0); NRBC Abs Auto 0.000 X10*3/uL (0.0-0.012); NRBC Pct Auto 0.0 /100WBC (0.0-0.2); Platelet Count 240 X10*3/uL (160-400); Red Blood Count 4.17 X10*6/uL (4.60-5.80); White Blood Count 6.3 X10*3/uL (4.8-10.8)
[2025-01-16 20:23] LABS: Alanine Aminotransferase 29 U/L (0-40); Albumin Level 4.1 g/dL (3.5-5.0); Alkaline Phosphatase 83 U/L (39-117); Anion Gap 13 (12-20); Aspartate Amino Transferase 21 U/L (5-37); Blood Urea Nitrogen 19 mg/dL (9-16); Calcium 9.2 mg/dL (8.4-10.2); Carbon Dioxide 24 mmol/L (22-29); Chloride 109 mmol/L (96-108); Creatinine Clr Calc Pharmacy 56.7; Estimated Glomerular Filt Rate > 60; Magnesium 1.8 mg/dL (1.6-2.6); Potassium 3.9 mmol/L (3.3-5.1); Sodium 142 mmol/L (135-145); Total Protein 6.8 g/dL (6.5-8.0)
[2025-01-16 20:31] LABS: Troponin-I High Sensitivity 13.7 ng/L (<3.5-35.0)
[2025-01-16 20:50] LABS: Resp Syncy Virus RNA Qual PCR NEGATIVE (Negative); SARS COV2 PCR INHOUSE NEGATIVE (Negative)
[2025-01-16 21:49] VITALS: BP 138/80; PULSE 95; RESP 20; O2SAT 96
[2025-01-16 22:54] VITALS: O2SAT 96
[2025-01-16 23:03] VITALS: BP 142/93; PULSE 83; RESP 17; O2SAT 95
[2025-01-16 23:26] VITALS: PULSE 120; O2SAT 97
--- NOTE | 2025-01-16 23:26 | MHC.EDTECH ---
Ambulation trial done with Pt. 97%, HR 120 and Pt did complain of shortness of breath. Dr. Marlin aleman.
[2025-01-17] VITALS: BP 138/73; PULSE 90; RESP 16; O2SAT 96
[2025-01-17] MEDS: Magnesium Sulfate/H2O 2 GM/50 ML PIGGYBACK IV (00:16)
[2025-01-17 01:42] VITALS: PULSE 105; RESP 16; O2SAT 95
[2025-01-17 01:43] VITALS: BP 138/79; PULSE 96; RESP 20; TEMP 36.6; O2SAT 95
[2025-01-17] MEDS: Albuterol Sulfate 7.5 MG, Albuterol Sulfate (0.083%) 2.5 MG 10 MG INHALE (01:44)
[2025-01-17 04:13] VITALS: BP 138/79; PULSE 96; RESP 20; TEMP 36.6; O2SAT 95
--- OUTSIDE RECORDS SUMMARY | 2025-01-17 14:12 | XMS_ITS | Data Portability ---
Author Organization [employer] [facility], [facility] Address [address] [place] [id number] Care Team Providers Care Roofer Apprentice Name Role Phone HIM CCA OTHER Assessment Encounter Date Assessment Date Assessment LastModified by Organization Details LastModified Time 09/09/2022 09/09/2022 I provided real -time medical direction via phone for this encounter, and was available for additional phone based assistance as needed. I have reviewed and agree with the Assessment and Plan as documented by the Workforce Management Consultant. Patient given the opportunity to ask questions. Advised if develops CP/severe SOB/turning blue/uncontrolle d n/v/d or black/bloody emesis or stool/ AMS/ syncope/ hi fever unresponsive to APAP to call 911- patient / family verbalized understanding of instructions to the medic Not available 09/09/2022 14:13:03 03/20/2024 03/20/2024 I have reviewed and agree with the assessment and plan as documented by the pediatric acute care unit nurse. I provided real-time medical direction for this encounter and was immediately available to provide additional phone-based assistance as needed. History as noted in EMR and by pediatric acute care unit nurse. I would add / emphasize: Patient seen for nonproductive cough fatigue and myalgias. AVSS, afebrile and well-appearing. [id number] COVID flu and BMP testing without acute life-threatening abnormalities. Denying any shortness of breath abdominal pain or chest pain. Suspect likely viral illness and advised on supportive care with plan for home monitoring of symptoms with precautions for callback or ED presentation for worsening symptoms. [email or web address] Not available 03/22/2024 06:41:42 Plan of Treatment Reminders Order Date Submit Date Provider Last Modified By Organization Details Last Modified Time Details Appointments None recorded. Lab rapid SARS CoV 2 Ag, QL IA, respiratory specimen 2024 025 JAMISON [facility], [address] [place] [address], [id number] 5 08:06:54 rapid flu (A+B) 2024 025 FARRAR [facility], [address] [place] [address], [id number] 5 08:07:57 BMP, serum or plasma 2024 025 [facility] - [facility], [address] [place] [address], [id number] 5 08:08:30 urinalysis, dipstick 2022 023 [email or web address] 0 [facility] - [facility], [address] [place] [address], [id number] 3 19:49:21 BMP, serum or plasma 2022 023 [email or web address] 0 [facility] - [facility], [address] [place] [address], [id number] 3 19:49:21 rapid flu (A+B) 2022 023 [email or web address] 0 [facility], [address] [place] [address], [id number] 3 19:49:21 rapid SARS CoV 2 Ag, QL IA, respiratory specimen 2022 023 [email or web address] 0 [facility] - [facility], [address] [place] [address], [id number] 3 19:49:21 Referral None recorded. Procedures None recorded. Surgeries None recorded. Imaging electrocard iogram 2022 023 [email or web address] 0 [facility], [address] [place] [address], [id number] 3 19:49:21 Medication Orders None recorded. Patient TargetsNo targets recorded. Patient Instructions Encounter Date Encounter Id Patient Instructions Last Modified By Organization Details Last Modified Time 09/09/2022 [id number] orthostatic vitals* [email or web address] Not available 09/09/2022 19:49:21 Reason for Referral None Reported. Results Created Date Observation Date Name Description Value Unit Range Abnormal Flag Note LastModifiedBy Organization Detail LastModifiedTime 09/10/19 23 09/09/2022 BMP, serum or plasm a BUN 25 Not Available [facility] - [facility] [address], [address] [place] [address] 09/09/2022 13:59:06 09/10/19 23 09/09/2022 BMP, serum or plasm a Ca I jaimee 1.19 Not Available [facility] - [facility] [address] [place] [address], [address] [place] [address] 09/09/2022 13:59:06 09/10/19 23 09/09/2022 BMP, serum or plasm a CI- 103 Not Available [facility] - [facility] [address], [address] [place] [address] 09/09/2022 13:59:06 09/10/19 23 09/09/2022 BMP, serum or plasm a CRE 0.9 Not Available [facility] [address], [address] [place] [address] 09/09/2022 13:59:06 09/10/19 23 09/09/2022 BMP, serum or plasm a GLU 116 Not Available [facility] - [facility] [address], [address] [place] [address] 09/09/2022 13:59:06 09/10/19 23 09/09/2022 BMP, serum or plasm a K+ 4.3 Not Available [facility] - [facility] [address], [address] [place] [address] 09/09/2022 13:59:06 09/10/19 23 09/09/2022 BMP, serum or plasm a Na+ 137 Not Available [facility] - [facility] [address], [address] [place] [address] 09/09/2022 13:59:06 09/10/19 23 09/09/2022 BMP, serum or plasm a tCO2 23 Not Available [facility] [address], [address] [place] [address] 09/09/2022 13:59:06 09/10/19 23 09/09/2022 urina lysis , dipst ick Leukocytes neg Not Available [facility] - [facility] [address] [place] [address], [address] [place] [address] 09/09/2022 13:59:03 09/10/19 23 09/09/2022 urina lysis , dipst ick Nitrite negati ve Not Available [facility] [address] [place] [address], [id number] 09/09/2022 13:59:03 09/10/19 23 09/09/2022 urina lysis , dipst ick Urobilinogen neg Not Available [facility] - [facility] [address] [place] [address], [id number] 09/09/2022 13:59:03 09/10/19 23 09/09/2022 urina lysis , dipst ick Protein neg Not Available [facility] - [facility] [address], [id number] 09/09/2022 13:59:03 09/10/19 23 09/09/2022 urina lysis , dipst ick pH 5 Not Available [facility] - [facility] [address], [id number] 09/09/2022 13:59:03 09/10/19 23 09/09/2022 urina lysis , dipst ick Blood neg Not Available [facility] - [facility] [address], [id number] 09/09/2022 13:59:03 09/10/19 23 09/09/2022 urina lysis , dipst ick Specific Elk 1.005 Not Available [facility] - [facility] [address] [place] [address], [id number] 09/09/2022 13:59:03 09/10/19 23 09/09/2022 urina lysis , dipst ick Ketone neg Not Available [facility] - [facility] [address], [id number] 09/09/2022 13:59:03 09/10/19 23 09/09/2022 urina lysis , dipst ick Bilirubin neg Not Available [facility] - [facility] [address] [place] [address], [id number] 09/09/2022 13:59:03 09/10/19 23 09/09/2022 urina lysis , dipst ick Glucose neg Not Available [facility] - [facility] [address], [id number] 09/09/2022 13:59:03 09/10/19 23 09/09/2022 urina lysis , dipst ick Appearance clear Not Available [facility] - [facility] [address] [place] [address], [id number] 09/09/2022 13:59:03 09/10/19 23 09/09/2022 urina lysis , dipst ick Color yellow Not Available [facility] - [facility] [address] [place] [address], [id number] 09/09/2022 13:59:03 09/10/19 23 09/09/2022 rapid SARS CoV 2 Ag, QL IA, respi rator y speci men rapid SARS CoV 2 Ag, QL IA, respiratory specimen negati ve Not Available [facility] - [facility] [address] [place] [address], [id number] 09/09/2022 13:59:22 09/10/19 23 09/09/2022 rapid flu (A+B) Flu negati ve Not Available [facility] [address] [place] [address], [id number] 09/09/2022 13:59:19 09/10/1909/09/2022 elect fernando escalante am No observ ation record ed. [email or web address] [facility] [address] [place] [address], [id number] 09/09/2022 19:49:24 Result Notes None recorded. Medical Equipment None Reported. [...] Available Vitals Date Recorded Heart rate Body height Oxygen saturation Oxygen saturation in Arterial blood by Pulse oximetry Body weight Body temperature Respiratory rate Systolic And Diastolic Provider Name and Address Organization Details Last Updated DateTime 5 96 /min 170.18 cm 96 % 96 % 67640.6 4 g 98 [degF] 14 /min 111/65 mm[Hg] Not Available [employer] [facility] [employer] 5 13:05:22 Date Recorded Heart rate Body temperature Body height Oxygen saturation Oxygen saturation in Arterial blood by Pulse oximetry Body weight Respiratory rate Systolic And Diastolic Provider Name and Address Organization Details Last Updated DateTime 3 96 /min 96.8 [degF] 170.18 cm 99 % 99 % 06207.6 4 g 16 /min 145/89 mm[Hg] Not Available [employer] [employer] 3 20:08:34 Date Recorded Body height Provider Name an d Address Organization Details Last Updated DateTime 09/09/2022 170.18 cm Camilo Cruz [address] [place] [address],[address], [place], [phone], [place] - [employer] [facility] 09/09/2022 13:59:55 Date Recorded Body temperature Oxygen saturation Oxygen saturation in Arterial blood by Pulse oximetry Heart rate Respiratory rate Systolic And Diastolic Provider Name and Address Organization Details Last Updated DateTime 3 98.1 [degF] 98 % 98 % 71 /min 16 /min 158/80 mm[Hg] Not Available [employer] [employer] 3 13:40:31 Social History None recorded. Functional Status None recorded. Mental Status None recorded. Family History Nothing Reported. Medical History No medical history recorded. Past Encounters Encounter ID Performer Location Encounter Start Date Encounter Closed Date Diagnosis/Indication Diagnosis SNOMED-CT Code Diagnosis ICD10 Code Diagnosis IMO Codes Diagnosis Note [id number] Flaquito Perdue MD [facility] [employer] [address] [place] [phone] 09/06/2022 20:08:20 09/07/2022 12:39:08 Nasal congestion 51042329 R09.81 Patient reports continued nasal congestion . He has been started on azelastine . No fevers, chills, purulent drainage, or significan t pain to suggest bacterial sinusitis. Advised he continue his outpatient regimen as prescribed by his PCP. Change of dressing 69355 003 Z48.00 Patient with a recent lawnmower injury to fingers. Dressing fell off at home. He is scheduled to see the orthopedic surgeon tomorrow. Finger wound re-dressed with Xeroform and sterile gauze. [id number] Luz Maria Rizo MD [facility] [address] [place] [phone] 09/09/2022 13:40:08 09/09/2022 21:46:46 Malaise and fatigue 343219348 R53.83 advised unsure of etiology of fatigue- further w/u beyond scope of [facility]- advised of need to f/u with pcp tomorrow/ rest increase fluids as has mild elevation of BUN- not orthostati c- reviewed red flags [id number] John Carney MD [facility] [address] [place] [phone] 03/20/2024 13:05:20 03/22/2024 18:40:00 Cough 62646759 R05.9 Health Concerns Section Related Observation LastModified by Organization Detai ls LastModified Time None Recorded Concern Status LastModified by Organization Details LastModified Time None Recorded Advance Directives Directive None Recorded Payers Insurance Date Sequence Insurance Name Policy Number Policy Muñiz Covered Member ID Muñiz Member ID Guarantor Name 03/20/2024 1 [facility] - DOS ON OR AFTER 2022 - DUAL ELIGIBLE - LONG-TERM OPTIONS AND ONE CARE (MEDICARE REPLACEMENT/ADV ANTAGE - HMO) Miguelito Edmondson [id number] Miguelito Edmondson Notes Date Note Type Note [...] re-wrapped. Member would like to be evaluated. ...................... ...................... ...................... ...................... ...................... ...................... ......... Workforce Management Consultant Note From Portillo López: [facility] call for patient complaining of stuffy nose and separately concerned about wound care for a few finger tips . Arrived to home to find patient with family in living room. Pt presented in no obvious distress. Pt had limited Spanish so his daughter provided translation for assessment. Pt states that he has had stuffy nose for which he was prescribed azelastine nasal spray and has been trialing flonase as well with some improvement. 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 Explained nasal lavage procedure. ...................... ...................... ...................... ...................... ...................... ...................... ......... Disposition: Fulfilled Flaquito Perdue MD [address] [place] [address],[address], [place], [phone], [facility] [employer] 09/06/2022 22:57:04 09/09/2022 text/html ROS as noted in the HPI CRC Nursing Assessment: Reason For Request: Daughter reporting pt baseline seems the worst she has ever seen him>pt was also recently seen by [employer]. childrens [employer] attendant reporting weakness and lethargy>losing weight in the last few weeks. hot and cold sweats>issues with nose because he was having a hard time breathing> Chief Complaints: Weakness/Lethargy, Fever/Chills PMH: COPD/Asthma, Hypertension Allergies: No Known Comments: Daughter received call from RETIREMENT OFFICER that member is experiencing chills and body aches today with weakness. Unknown fever. Increased weight loss and decreased appetite over the last 2 weeks. Approx 2 weeks ago member's right hand was injured from special loan officer accident. Prescribed Amoxicillin and Oxycodone. Also reported [...] has increased po fluids - just very tired................. ...................... ...................... ...................... ...................... ...................... ............... Workforce Management Consultant Note From Benjamin Mckenzie: Dispatched to the [...] Red flags discussed. ALL times are approx. ...................... ...................... ...................... ...................... ...................... ...................... ......... Disposition: Fulfilled Luz Maria Rizo MD [address] [facility],[address], [place], [address], [employer] [facility] 09/09/2022 19:51:22 03/20/2024 text/html HPI: Member's daughter, Leighann, phoned in stating member has symptoms of body aches, productive cough with white phlegm, headache looks like he's going to pass out, fever last night but does not know the value. Symptoms have been present since yesterday. Member B.P today was 102/68 after taking antihypertensive medications. Member has not eaten or drank anything other than oatmeal and a sip of water since yesterday morning. Member has just had coffee today. Member denies nausea, vomiting or diarrhea. ...................... ...................... ...................... ...................... ...................... ...................... ......... CRC Nurse Triage Notes (Phill Steiner - RN): Chief Complaints: Cough, Fever/chills, Headache, Weakness, Dehydration PMH: COPD/Asthma, Hypertension PMH Reviewed at 03/20/2024:33 Allergies Reviewed at 03/20/2024 - 11:33 Comments: HPI reviewed by this RN, no further information needed to process visit -Vj Steiner RN Workforce Management Consultant Organization Information for Gallo [employer] Legal Name: [facility] Address: [address] [place] [address], JULIETH Sampson [address], Hand Picker: Tono Landrum MD [facility] No.: [id number] Workforce Management Consultant POC Test Results from Jesenia Gallo - ALS Rapid COVID antigen (12:55:43) COVID: - Rapid influenza antigen (::44) Flu: - epoc (12:55:54) pH: 7.39 pH units pCO2: 39.9 mmHg pO2: 26.5 mmHg Na: 136 mmol/L K: 4.6 mmol/L iCa: 1.12 mmol/L Cl: 107 mmol/L TCO2: 23.6 mEq/L Hct: 43 % Hb: 14.7 g/dL Glu: 108 mg/dL Lac: 1.8 mmol/L Cr: 1.1 mg/dL BUN: 23 mg/dL A ...................... ...................... ...................... ...................... ...................... ...................... ......... Workforce Management Consultant Note From Gallo Ba: This visit is [age]-year-old male with history including but not limited to COPD, HTN, HLD, neuropathy. The patient's family requested a visit to address bodyaches, dry cough and fatigue since yesterday. At patient side the patient tells me he feels well. He denies any current headaches, shortness of breath, chest pain, fevers, nausea, vomiting, diarrhea. The patient's family has been giving him Robitussin as needed. The patient is taking all of his daily medication as prescribed and has not needed his rescue inhaler more than normal. Patient presents awake and alert, in no acute distress and speaking full sentences. His vital signs are stable and he is afebrile. Nonfocal neurological exam. Normal gait. Lungs are clear throughout auscultation. Abdomen is soft, nontender, nondistended. No lower extremity edema. Rapid COVID and flu testing are both negative. Unremarkable [id number] lab are uploaded. I provided reassurance to both the patient and the family that is vital signs and test results are reassuring. I recommend he increases his overall hydration, eat whatever he can tolerate and follow-up with his primary care later this week. I instructed him to present to the emergency department for any new or worsening severe symptoms such as chest pain, severe shortness of breath, high fever, altered mental status. The patient and his family were given the opportunity to ask questions and are agreeable to this plan. ...................... ...................... ...................... ...................... ...................... ...................... ......... [facility] Consulted: John Carney ...................... ...................... ...................... ...................... ...................... ...................... ......... Disposition: Fulfilled John Carney MD [address] [facility],[address], [place], [address], [employer] [facility] 03/22/2024 06:42:09
== END 2025-01-17 04:13 | disposition home or self-care (01) ==
PROVIDERS: Physician Assistant Medical; Emergency Provider Emergency Medicine; PCP Family Medicine
DX: J44.9 Chronic obstructive pulmonary disease, unspecified (principal); I10 Essential (primary) hypertension; I48.0 Paroxysmal atrial fibrillation; Z79.01 Long term (current) use of anticoagulants
CPT/HCPCS: 71046; 71250; 74176; 80048; 80076; 83735; 83880; 84484; 85025; 87637; 93005; 96365; 96375; 99284; 99285; J2919; J3475

== ENCOUNTER → 2025-01-16 19:48 | Outpatient (BNV) | payer OTHER, SELFPAY | PROVIDERS: PCP Family Medicine; Visit Provider Radiology Diagnostic Radiology | DX: R06.02 Shortness of breath (principal) | CPT/HCPCS: 71046 ==

== ENCOUNTER → 2025-01-16 19:48 | Outpatient (BNV) | payer OTHER, SELFPAY | PROVIDERS: Emergency Provider Emergency Medicine; PCP Family Medicine; Visit Provider Internal Medicine | DX: I48.91 Unspecified atrial fibrillation (principal); I45.10 Unspecified right bundle-branch block | CPT/HCPCS: 93010 ==

== ENCOUNTER 2025-02-18 11:17 | Emergency (ER) | payer OTHER, SELFPAY ==
--- OUTSIDE RECORDS SUMMARY | 2025-02-16 23:59 | XMS_ITS | Continuity of Care Document ---
Author Organization [facility] Address [address] [place] [address]- Care Team Providers Care Lube Man Name Role Phone Casey RAMIREZ, Junito Loya Primary Care Physician Encounter [facility] Date(s): 01/17/25 - 02/16/25 [facility] [address] [place], [place] [phone] Encounter Type: Triage Allergies, Adverse Reactions, Alerts No Known Medication Allergies Immunizations Given and Recorded Vaccine Date Status Refusal Reason influenza virus vaccine, inactivated 12/26/21 Jonathan rded influenza virus vaccine, inactivated 1 11/03/11 Gi lai SARS-CoV-2 (COVID-19) mRNA BNT-162b2 vac 01/08/21 Recorded SARS-CoV-2 (COVID-19) Ad26 vaccine 05/22/20 Record ed tetanus-diphtheria toxoids (Td) 11/20/17 Recorded pneumococcal 13-valent vaccine 09/14/17 Given Pneumococcal Vacc (oldterm) 2 02/02/07 Given Influenza Vaccine (oldterm) 3 02/02/07 Given 1Admin Note: vis given dated 08/31/11 2Admin Note: had in [place] in 2005 3Admin Note: pt refused Medications Aerochamber See Instructions, # 1 each, Maintenance, 1 units, 12/27/24 11:33:00 AM EDT, Supply, 170, cm, 12/27/24 10:43:00 EDT, Height Start Date: 12/27/24 Status: Ordered Medication Dispense Status: Completed Quantity: 1.0 Unit: each Total Allowed Fills: 1 Fills Dispensed: 0 albuterol 0.083% inhalation solution 3 mL = 2.5 mg, Inhalation, Every 6 hours, PRN for wheezing, # 25 each, 5 Refills, Maintenance, 07/25/24 8:50:00 AM EDT, Solution, [facility][id number], Partial fill upon patient request if the prescription is for a schedule II opioid drug., 170, cm, 07/25/24 8:23:00 EDT, Height Start Date: 07/25/24 Status: Ordered Medication Dispense Status: Completed Quantity: 25.0 Unit: each Total Allowed Fills: 6 Fills Dispensed: 0 albuterol CFC free 90 mcg/inh inhalation aerosol See Instructions, INHALE 1 PUFF BY MOUTH FOUR TIMES DAILY NEEDED FOR WHEEZING, # 3 each, [id number], Tot. Refills 11, Maintenance, 07/21/24 1:59:00 PM EDT, Instructions Replace Required Details, Route to Pharmacy Electronically, [id number], [facility] #[id number], 170, cm, 05/26/24 14:52:00 EDT, Height Start Date: 07/21/24 Status: Ordered Medication Dispense Status: Completed Quantity: 3.0 Unit: each Total Allowed Fills: 12 Fills Dispensed: 0 Cane See Instructions, # 1 each, Maintenance, dx: Arthritis pain duration: Lifetime, 02/26/23 3:35:00 PMEST, Supply Start Date: 02/26/23 Status: Ordered Medication Dispense Status: Completed Quantity: 1.0 Unit: each Total Allowed Fills: 1 Fills Dispensed: 0 Eliquis 5 mg oral tablet 1 tablet = 5 mg, By Mouth, 2 times a day, # 60 tablet, 5 Refills, Maintenance, 02/16/25 3:00:00 PM EST, Tablet, [facility] #[id number], Partial fill upon patient request if the prescription is for a schedule II opioid drug., 170, cm, 02/02/25 13:59:00 EST, Height Start Date: 02/16/25 Status: Ordered Medication Dispense Status: Completed Quantity: 60.0 Unit: tablet Total Allowed Fills: 6 Fills Dispensed: 0 gabapentin 300 mg oral capsule 300 mg, 1, capsule, By Mouth, 3 times a day, # 270 capsule, Refills 3, Tot. Refills 3, Maintenance,07/25/24 8:51:00 AM EDT, Route to Pharmacy Electronically, [facility] #[id number], Partial fillupon patient request if the prescription is for a schedule II opioid drug., 170, cm, 07/25/24 8:23:00 EDT, Height Start Date: 07/25/24 Stop Date: 07/20/25 Status: Ordered Medication Dispense Status: Completed Quantity: 270.0 Unit: capsule Total Allowed Fills: 4 Fills Dispensed: 0 metoprolol 25 mg oral tablet 25 mg, 1, tablet, By Mouth, 2 times a day, # 180 tablet, Refills 1, Tot. Refills 1, Maintenance, 02/14/25 10:42:00 AM EST, Route to Pharmacy Electronically, [facility] #[id number], Partial fill upon patient request if the prescription is for a schedule II opioid drug., 170, cm, 02/02/25 13:59:00 EST, Height Start Date: 02/14/25 Status: Ordered Medication Dispense Status: Completed Quantity: 180.0 Unit: tablet Total Allowed Fills: 2 Fills Dispensed: 0 mirtazapine 7.5 mg oral tablet 1 tablet = 7.5 mg, By Mouth, Daily at bedtime, For sleep, # 90 tablet, 1 Refills, Maintenance, 06/16/24 10:26:00 AM EDT, [facility] #[id number], Partial fill upon patient request if the prescription is for a schedule II opioid drug., 170, cm, 05/26/24 14:52:00 EDT, Height Start Date: 06/16/24 Stop Date: 12/13/24 Status: Ordered Medication Dispense Status: Completed Quantity: 90.0 Unit: tablet Total Allowed Fills: 2 Fills Dispensed: 0 Indications: Unspecified disorder of nose and nasal sinuses; montelukast 10 mg oral tablet 10 mg, 1, tablet, By Mouth, Daily in PM, For sinuses, # 90 tablet, Refills 1, Tot. Refills 1, Maintenance, 02/14/25 10:56:00 AM EST, Route to Pharmacy Electronically, [facility] #[id number], Partial fill upon patient request if the prescription is for a schedule II opioid drug., 170, cm, 02/02/25 13:59:00 EST, Height Start Date: 02/14/25 Status: Ordered Medication Dispense Status: Completed Quantity: 90.0 Unit: tablet Total Allowed Fills: 2 Fills Dispensed: 0 Indications: Unspecified disorder of nose and nasal sinuses; omeprazole 20 mg oral enteric coated capsule 1 capsule = 20 mg, By Mouth, Daily, # 90 capsule, 1 Refills, Maintenance, 02/14/25 10:42:00 AM EST,EC Capsule, [facility] #[id number], Partial fill upon patient request if the prescription is for a schedule II opioid drug., 170, cm, 02/02/25 13:59:00 EST, Height Start Date: 02/14/25 Stop Date: 04/15/25 Status: Ordered Medication Dispense Status: Completed Quantity: 90.0 Unit: capsule Total Allowed Fills: 2 Fills Dispensed: 0 simvastatin 40 mg oral tablet 40 mg, 1, tablet, By Mouth, Daily, # 90 tablet, Refills 1, Tot. Refills 1, Maintenance, 11/16/24 2:14:00 PM EDT, Route to Pharmacy Electronically, [facility] #[id number], 170, cm, 07/25/24 8:23:00 EDT, Height Start Date: 11/16/24 Stop Date: 05/15/25 Status: Ordered Medication Dispense Status: Completed Quantity: 90.0 Unit: tablet Total Allowed Fills: 2 Fills Dispensed: 0 tamsulosin 0.4 mg oral capsule 0.4 mg, 1, capsule, By Mouth, Daily at bedtime, FRENCH Please avoid getting up too quiclky from lying/sitting to standing to reduce risk of dizziness, # 90 capsule, Refills 1, Tot. Refills 1, Maintenance, 03/15/24 3:46:00 PM EST, Route to Pharmacy Electronically, [facility] #[id number], Partial fill upon patient request if the prescription is for a schedule II opioid drug., 170, cm, 248:45:00 EDT, Height Start Date: 03/15/24 Status: Ordered Medication Dispense Status: Completed Quantity: 90.0 Unit: capsule Total Allowed Fills: 2 Fills Dispensed: 0 Trelegy Ellipta 100 mcg-62.5 mcg-25 mcg/inh inhalation powder 1 inhalation, Inhalation, Daily, at the same time every day, # 3 each, 3 Refills, Maintenance, 01/22/25 11:32:00 AM EST, Powder, [facility] #[id number], Partial fill upon patient request if the prescription is for a schedule II opioid drug., 170, cm, 01/22/25 10:43:00 EST, Height Start Date: 01/22/25 Stop Date: 01/17/26 Status: Ordered Medication Dispense Status: Completed Quantity: 3.0 Unit: each Total Allowed Fills: 4 Fills Dispensed: 0 Problem List Condition Confirmation Course Effective Dates Status Health Status Informant Atrial fibrillation Confirmed Active Chronic emphysema Confirmed 02/02/07 Active 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 Diverticulosis of colon 1 Confirmed Active Gynecomastia, male Confirmed Active Hypercholesterolemia Confirmed 02/02/07 Active HLD (hyperlipidemia) Confirmed Active HTN (hypertension) Confirmed Active Obese class I Confirmed Active *[id number] Durandarrilir Confirmed Active COPD with emphysema Confirmed Active 1mild, colonoscopy 05/2015 Social History Social History Type Response Smoking Status Former smoker, quit more than 30 days ago entered on: 07/14/23 Sexual Orientation Self described orien tation: ; Straight or heterosexual Sex Sex Representation Male (finding) Patient Care team information Care Team Personnel Name: Junito Peña MD Position: [facility] Physician - Primary Care Member Role: PCP Address: [address] [place] [address] Telecom: Care Team Related Persons Name: MARLON PAEZ Name: COLON, [employer] SPECIALIST Name: PORSHA BRUNO Insurance Providers Guarantor name: MASSIEL BRUNO Health Plan Information #: 1 Payer: [employer] Payer Identifier: NA Member Number: [id number] Group Number: [id number] Subscriber Identifier: NA Relationship to Subscriber: self Coverage Type: Medicare Managed Care (Includes Medicare Advantage Plans) Coverage Verification Date: NA Telecom: NA Address:
--- NOTE | ~2025-02-18 | XR_ITS ---
CLINICAL HISTORY: Cough 2 views chest Comparison: CR - XR CHEST 2V - 01/16/25 19:54 EST Findings: Cardiac and mediastinal contours are normal. Mild interstitial prominence with scattered peribronchial thickening. No focal consolidation. No effusion. No pneumothorax. No acute osseous finding. Impression: Mild interstitial prominence with scattered peribronchial thickening. No focal consolidation. This document has been electronically signed by: Favian Arredondo MD on 02/18/2025 12:04:57
--- NOTE | ~2025-02-18 | CT_ITS ---
CLINICAL HISTORY: Left sided abdominal pain, r o colic CT abdomen and pelvis without IV contrast. COMPARISON: CT abdomen and pelvis dated 01/16/25 at 23:52 EST FINDINGS: Small hiatal hernia. Calcified granuloma in the right lower lobe. Normal gallbladder. Noncontrast appearance of the liver, spleen, pancreas and adrenal glands are unremarkable. No renal or ureteral calculus. No hydronephrosis or hydroureter. Normal appendix. Mild colonic stool burden. No bowel obstruction. Moderate distal colonic diverticulosis without evidence of diverticulitis. No mesenteric or retroperitoneal lymphadenopathy. Moderate aortoiliac atherosclerotic vascular calcifications. Normal appearance of the urinary bladder. Small fat containing left inguinal hernia. Schmorl's node at the superior endplate of L2. Moderate multilevel spondylosis most pronounced within the lower lumbar spine. No acute fracture. IMPRESSION: 1. No evidence of renal obstruction. No renal or ureteral calculus bilaterally. 2. Colonic diverticulosis without evidence of diverticulitis. 3. Small hiatal hernia. This document has been electronically signed by: Chiki Barnhart MD on 02/18/2025 14:16:42
[2025-02-18 11:21] VITALS: BP 169/76; PULSE 106; RESP 20; TEMP 36.6; O2SAT 95; BMI 30.5
--- NOTE | 2025-02-18 11:22 | ED.SOB ---
HPI - SOB/Dyspnea General Chief Complaint: Dyspnea Stated Complaint: L sided belly pain Time Seen by Provider: 02/18/25 11:48 Source: patient and software tester Mode of arrival: ambulatory Limitations: language barrier History of Present Illness ED Provider: Brittany Bright APRN HPI Narrative: 84 yo male with history of COPD, afib on AC therapy, GERD, HTN here with complaints shortness of breath, cough and left-sided abdominal pain. Of note, family declined software tester services and the patient's daughter is at the bedside interpreting for the patient. She reports the patient has had chronic shortness of breath and cough for the last few months. He has been seen by pulmonology and has been to the ER for several visits. He has been using albuterol inhaler and nebulizer daily. He was recently started on an inhaled corticosteroid 1 month ago but she does not feel like this is helping. He does have a follow up outpatient appointment with pulmonology at [facility] next month. Today he did have an episode prior to arrival where he was very short of breath unrelieved with his nebulizer and albuterol inhaler. He reports he is feeling better overall but still reports some cough and shortness of breath. There has been no recent fevers or chills or flu-like symptoms. This morning patient noted left-sided abdominal pain. He denies any associated urinary symptoms, diarrhea, constipation, nausea or vomiting. There is no reports of any abdominal surgical history Related Data Home Medications ?Medication ?Instructions ?Recorded ?Confirmed albuterol sulfate 90 mcg/actuation 1 puff inhalation QID PRN wheezing 01/13/21 12/19/24 aerosol inhaler fluticasone 500 mcg-salmeterol 50 1 puff inhalation BEDTIME 01/13/21 12/19/24 mcg/dose blistr powdr for inhalation (Meghann Inhfaheem) omeprazole 20 mg capsule,delayed 20 mg PO DAILY 01/13/21 12/19/24 release albuterol sulfate 2.5 mg/3 mL 2.5 mg inhalation Q6H PRN wheezing 12/19/24 12/19/24 (0.083 %) solution for nebulization gabapentin 300 mg capsule 300 mg PO TID 12/19/24 12/19/24 metoprolol tartrate 25 mg tablet 25 mg PO BID 12/19/24 12/19/24 mirtazapine 7.5 mg tablet 7.5 mg PO BEDTIME insomnia 12/19/24 12/19/24 montelukast 10 mg tablet 10 mg PO QPM sinusitis 12/19/24 12/19/24 simvastatin 40 mg tablet 40 mg PO DAILY 12/19/24 12/19/24 Previous Rx's ?Medication ?Instructions ?Recorded apixaban 5 mg tablet (Eliquis) 5 mg PO BID #60 tabs 01/14/21 prednisone 20 mg tablet 40 mg (2 x 20 mg) PO DAILY #8 tabs 12/20/24 albuterol sulfate 2.5 mg/3 mL 2.5 mg (3 mL) inhalation Q4-6H PRN 01/17/25 (0.083 %) solution for nebulization shortness of breath or wheezing #75 mL albuterol sulfate 90 mcg/actuation 2 puff inhalation Q4-6H PRN 01/17/25 aerosol inhaler (Ventolin HFA) shortness of breath or wheezing #8.5 grams azithromycin 250 mg tablet 250 mg PO DAILY 4 days #4 tabs 01/17/25 cefuroxime axetil 500 mg tablet 500 mg PO BID #9 tabs 01/17/25 prednisone 50 mg tablet 50 mg PO DAILY #5 tabs 01/17/25 albuterol sulfate 2.5 mg/3 mL 2.5 mg (3 mL) inhalation Q4H PRN 02/18/25 (0.083 %) solution for nebulization shortness of breath or wheezing #75 mL prednisone 20 mg tablet 40 mg (2 x 20 mg) PO DAILY #8 tabs 02/18/25 Allergies Allergy/AdvReac Type Severity Reaction Status Date / Time No Known Allergies Allergy Unknown Verified 02/18/25 11:26 Review of Systems Review of Systems: Yes all other systems are reviewed and are negative Constitutional: Constitutional: Reports no additional constitutional complaints, Denies body ache(s), Denies chills, Denies fever(s), Denies headache(s) and Denies weakness Eyes: Eyes: Reports no additional eye complaints and Denies change in vision ENT: Reports system reviewed and no additional complaints, except as documented, Denies dizziness, Denies headache(s), Denies nasal congestion, Denies nasal discharge and Denies neck pain Cardiovascular: Cardiovascular: Reports no additional cardiovascular complaints, Denies chest pain, Denies leg edema and Denies dyspnea Respiratory: Respiratory: Reports no additional respiratory complaints, Reports cough and Denies dyspnea Gastrointestinal: Gastrointestinal: Reports no additional gastrointestinal complaints, Reports abdominal pain, Denies diarrhea, Denies nausea and Denies vomiting Genitourinary: Genitourinary: Denies urinary incontinence Musculoskeletal: Musculoskeletal: Reports no additional musculoskeletal complaints, Denies back pain, Denies arthralgias, Denies joint swelling, Denies neck pain, Denies numbness and Denies tingling Integumentary/Breasts: Skin/Breast: Reports system reviewed and no additional complaints, except as docu and Denies rash Neurologic: Reports system reviewed and no additional complaints, except as documented, Denies Abnormal speech present, Denies dizziness, Denies headache(s), Denies numbness, Denies tingling and Denies weakness PMFSH Past Medical History Attestation statement: The following information was validated with the patient. Source: old records reviewed and nursing notes reviewed Medical History Congestive heart failure PAF (paroxysmal atrial fibrillation) Atrial fibrillation with RVR GERD (gastroesophageal reflux disease) HTN (hypertension) COPD (chronic obstructive pulmonary disease) No known health problems Surgical History No pertinent past surgical history Social History Social History Household Members: Spouse Housing: Apartment Do you presently have visiting nurse or other home services: No Alcohol intake: never Patient Tobacco Use Status: Former Tobacco user Smoked in Last 30 Days: No Use of substances other than those prescribed or required for medical reasons: No Advance Directives: No Advance Directives Information Provided: No service: No Current occupational status: retired Physical Exam Vital Signs: Vital Signs: Last Vital Signs Temp 98.1 F 02/18/25 12:03 Pulse 91 02/18/25 12:28 Resp 26 H 02/18/25 12:28 BP 122/81 02/18/25 12:03 Pulse Ox 95 02/18/25 12:03 O2 Del Method Room Air 02/18/25 12:03 BMI result Body Mass Index 30.5 Const: General: cooperative, healthy appearing, comfortable and no acute distress Orientation/consciousness: patient oriented x3 Limitations: no limitations HEENT: Head: Yes normal to inspection Ears: hearing grossly normal bilaterally General nose exam: Normal external nose present Face and sinus: Yes normal facial exam Mouth: Normal oral and palatal mucosa present Throat: Yes posterior oropharynx normal Eyes: General: appearance normal, both eyes and all related structures Pupils: Equal, round and reactive pupils present Neck: Neck: Yes normal visual inspection Chest: Chest palpation & inspection: normal inspection of the chest Resp: Effort & Inspection: normal respiratory effort Auscultation: wheezes Cardio: Rate: regular rate Rhythm: regular rhythm Peripheral pulses: Peripheral pulses 2+ throughout GI: Inspection: Yes normal to inspection Palpation (GI): Soft to palpation, Tenderness to palpation present (GI) in the LLQ; with no rebound tenderness and no guarding Auscultation: normal bowel sounds Back/Spine/Pelvis: Thoracic/Lumbar Spine: thoracic and lumbar spine normal to inspection Skin: General skin exam: no rashes or lesions noted Neuro: General: patient oriented x3, no focal motor deficits and normal sensation to monofilament Cranial nerves: Yes Equal, round and reactive pupils present Cognition (Neuro): normal cognition Speech: No Abnormal speech present Gait exam (Neuro): Normal gait present Motor exam (neuro): 5/5 motor strength present throughout Extrem: General: Yes normal to inspection, Yes no calf tenderness and No edema Course Course Course Narrative: This is a Rapid Medical Examination (RME) performed by Danii Arevalo NP in triage. Full assessment, plan deferred to conservation science officer. 84-year-old male medical history significant for atrial fibrillation with RVR now chronically anticoagulated on Eliquis, COPD, GERD, hypertension presenting to the ED for evaluation of substernal chest discomfort as well as shortness of breath, coughing for 24-48 hours. He has had a chronic cough, but this cough is significantly worsened. He endorses some left lower quadrant abdominal pain with coughing as well. No substernal pain at rest. No fever, chills. No abdominal pain, nausea or vomiting, diarrhea or constipation. Plan: EKG, labs, chest x-ray. Reevaluation(s) Reevaluation #1: 1423-Labs are unremarkable. CXR is negative. Viral testing negative. EKG nonischemic. CT abdomen and pelvis shows no acute finding. Abdominal pain is likely secondary to coughing. Patient is feeling more comfortable. I would like to perform an ambulatory pulse oximeter to see how the patient does and if we can discharge home. I left a message with his daughter Leighann to discuss. Reevaluation #2: 1430- daughter at the bedside. Patient ambulated in the emergency room with a pulse oximeter greater than 97%. He is well-appearing. I will discharge him home with a brief course of prednisone and a refill for his albuterol nebulizer. Reviewed worrisome signs and symptoms of when to return to the emergency room. Comfortable plan for discharge home. Medications Administered Discontinued Medications Generic Name Dose Route Start Last Admin Trade Name Freq PRN Reason Stop Dose Admin Albuterol Sulfate 5 mg/ 0 mg 02/18/25 12:22 02/18/25 12:28 Albuterol/Ipratropium 3 ml INHALE 02/18/25 12:23 1 each ONCE ONE Administration Magnesium Sulfate 2 gm in 50 mls @ 150 mls/hr 02/18/25 12:16 02/18/25 13:21 Magnesium Sulfate/H2o IV 02/18/25 12:35 Infused ONCE ONE Infusion Methylprednisolone Sodium Succinate 60 mg 02/18/25 12:16 02/18/25 12:31 Methylprednisolone Sod Succ 125 Mg/2 Ml Vial IVPUSH 02/18/25 12:17 60 mg ONCE ONE Administration Medical Decision Making Medical Decision Making MDM Narrative: 84 yo male with history of COPD, afib on AC therapy, GERD, HTN here with complaints shortness of breath, cough and left-sided abdominal pain. Of note, family declined software tester services and the patient's daughter is at the bedside interpreting for the patient. She reports the patient has had chronic shortness of breath and cough for the last few months. He has been seen by pulmonology and has been to the ER for several visits. He has been using albuterol inhaler and nebulizer daily. He was recently started on an inhaled corticosteroid 1 month ago but she does not feel like this is helping. He does have a follow up outpatient appointment with pulmonology at [facility] next month. Today he did have an episode prior to arrival where he was very short of breath unrelieved with his nebulizer and albuterol inhaler. He reports he is feeling better overall but still reports some cough and shortness of breath. There has been no recent fevers or chills or flu-like symptoms. This morning patient noted left-sided abdominal pain. He denies any associated urinary symptoms, diarrhea, constipation, nausea or vomiting. There is no reports of any abdominal surgical history on exam vitals are stable patient has auditory inspiratory and expiratory wheezing left lower quadrant abdominal pain on exam with no rebound or guarding with normal bowel sounds will obtain labs, viral testing, chest x-ray, EKG, CT abdomen and pelvis, UA patient will have IV placed with methylprednisone, magnesium and he will receive a bronchodilator Differential Diagnosis Differential Diagnoses: The differential diagnosis associated with the presentation includes COPD exacerbation low suspicion for ACS, pneumonia, PE renal colic, pyelonephritis, diverticulitis, appendicitis Admission/Observation Consideration of admission/observation: Escalation of care including admission/observation considered Lab Data MDM Lab Attestation statement: I reviewed the patient's lab results. 02/18/25 12:02/18/25 12:01 Labs: Lab Results 02/18/25 02/18/25 Range/Units 12: 12:22 WBC 6.8 (4.8-10.8) X10*3/uL RBC 4.18 L (4.60-5.80) X10*6/uL Hgb 11.7 L (14.0-18.0) g/dl Hct 36.7 L (42.0-52.0) % MCV 87.8 (80.0-98.0) fL MCH 28.0 (27.0-33.0) pg MCHC 31.9 (31.0-36.0) g/dl RDW 13.7 (11.0-16.0) % Plt Count 216 (160-400) X10*3/uL MPV 10.5 (9.4-12.4) fL Immature Gran % (Auto) 0.3 (0.0-0.4) % Neut % (Auto) 70.6 (45-73) % Lymph % (Auto) 13.3 L (20-40) % Tift % (Auto) 12.0 H (2-11) % Eos % (Auto) 3.1 (0-4) % Baso % (Auto) 0.7 (0-2) % Lymph # (Auto) 0.9 L (1.2-4.9) X10*3/uL Tift # (Auto) 0.8 (0.1-1.2) X10*3/uL Eos # (Auto) 0.2 (0.0-0.4) X10*3/uL Baso # (Auto) 0.1 (0.0-0.2) X10*3/uL Abs Immat Gran (auto) 0.02 (0.00-0.03) X10*3/uL Absolute Neuts (auto) 4.8 (2.0-8.3) x10*3/uL Absolute Nucleated RBC 0.000 (0.0-0.012) X10*3/uL Nucleated RBC % (auto) 0.0 (0.0-0.2) /100WBC Sodium 142 (135-145) mmol/L Potassium 4.2 (3.3-5.1) mmol/L Chloride 110 H (96-108) mmol/L Carbon Dioxide 23 (22-29) mmol/L Anion Gap 13 (12-20) BUN 16 (9-16) mg/dL Creatinine 0.89 (0.5-1.4) mg/dL Estim Creat Clear Calc 63.1 Estimated GFR > 60 Random Glucose 109 (60-115) mg/dL Calcium 9.0 (8.4-10.2) mg/dL Total Bilirubin 0.6 (0.0-1.0) mg/dL AST 26 (5-37) U/L ALT 16 (0-40) U/L Alkaline Phosphatase 77 (39-117) U/L Troponin I High Sens 14.5 (<3.5-35.0) ng/L Total Protein 6.6 (6.5-8.0) g/dL Albumin 4.2 (3.5-5.0) g/dL Lipase 31 (8-78) U/L Urine Color Yellow Urine Appearance Clear Urine pH 7.5 (5.0-9.0) Ur Specific [place] <= 1.005 (1.005-1.025) Urine Protein Negative (Neg-Trace) mg/dL Urine Glucose (UA) Negative (Negative) mg/dL Urine Ketones Negative (Negative) mg/dL Urine Blood Negative (Negative) Urine Nitrite Negative (Negative) Ur Leukocyte Esterase Negative (Negative) Influenza Type A (PCR) NEGATIVE (Negative) Influenza Type B (PCR) NEGATIVE (Negative) RSV RNA Qual (PCR) NEGATIVE (Negative) SARS-CoV-2 RNA (RT-PCR) NEGATIVE (Negative) Independent Interpretation I performed an independent interpretation of an: EKG, Plain X-Ray and CT Scan Interpretation: I independently viewed the chest x-ray/CT scan and agree with the radiology report Independently reviewed the EKG which shows AFib rate controlled Radiology Impression Discussion of test interpretation with radiology: I have reviewed the radiologist's reading. Radiologist Impression: [address] [address] XRay Report Signed Patient: Miguelito Alex MR#: [id number] : 1940 Acct:[id number] Age/Sex: 84 / M ADM Date: 02/18/25 Loc: .ED Attending Dr: Ordering Physician: Danii Arevalo Date of Service: 02/18/25 Procedure(s): XR chest 2V Accession Number(s): [id number] cc: Danii Arevalo; Junito Peña MD~ Reason for Exam: Cough CLINICAL HISTORY: Cough 2 views chest Comparison: CR - XR CHEST 2V - 01/16/25 19:54 EST Findings: Cardiac and mediastinal contours are normal. Mild interstitial prominence with scattered peribronchial thickening. No focal consolidation. No effusion. No pneumothorax. No acute osseous finding. Impression: Mild interstitial prominence with scattered peribronchial thickening. No focal consolidation. This document has been electronically signed by: Favian Arredondo MD on 02/18/2025 12:04:[address] [address] [address] Scan Report Signed Patient: Miguelito Alex MR#: [id number] : 1940 Acct:[id number] Age/Sex: 84 / M ADM Date: 02/18/25 Loc: .ED Attending Dr: Ordering Physician: Brittany Bright NP Date of Service: 02/18/25 Procedure(s): CT abdomen pelvis wo IV con Accession Number(s): [id number] cc: Junito Peña MD; Brittany Bright NP~ Report Number: [id number]: Total DLP = 577.00 mGy-cm Reason for Exam: Left sided abdominal pain, r/o colic CLINICAL HISTORY: Left sided abdominal pain, r o colic CT abdomen and pelvis without IV contrast. COMPARISON: CT abdomen and pelvis dated 01/16/25 at 23:52 EST FINDINGS: Small hiatal hernia. Calcified granuloma in the right lower lobe. Normal gallbladder. Noncontrast appearance of the liver, spleen, pancreas and adrenal glands are unremarkable. No renal or ureteral calculus. No hydronephrosis or hydroureter. Normal appendix. Mild colonic stool burden. No bowel obstruction. Moderate distal colonic diverticulosis without evidence of diverticulitis. No mesenteric or retroperitoneal lymphadenopathy. Moderate aortoiliac atherosclerotic vascular calcifications. Normal appearance of the urinary bladder. Small fat containing left inguinal hernia. Schmorl's node at the superior endplate of L2. Moderate multilevel spondylosis most pronounced within the lower lumbar spine. No acute fracture. IMPRESSION: 1. No evidence of renal obstruction. No renal or ureteral calculus bilaterally. 2. Colonic diverticulosis without evidence of diverticulitis. 3. Small hiatal hernia. Independent Historian Clinical information obtained from an independent historian. History obtained from or confirmed by: Other (daughter) Discharge Plan Discharge Clinical Impression: Acute exacerbation of chronic obstructive airways disease, Abdominal pain Patient Disposition: Home, Self-Care Instructions: COPD (Chronic Obstructive Pulmonary Disease) (ED), Abdominal Pain (ED) Additional Instructions: His testing in the emergency room is reassuring His CT scan of his abdomen shows no emergency. His pain is likely secondary to coughing His next dose of prednisone is tomorrow Follow-up with his outpatient providers Return for any worsening symptoms Prescriptions: New prednisone 20 mg tablet 40 mg PO DAILY Qty: 8 0RF albuterol sulfate 2.5 mg /3 mL (0.083 %) solution for nebulization 2.5 mg inhalation Q4H PRN (Reason: shortness of breath or wheezing) Qty: 75 0RF No Action omeprazole 20 mg capsule,delayed release(DR/EC) 20 mg PO DAILY albuterol sulfate 90 mcg/actuation HFA aerosol inhaler 1 puff inhalation QID PRN (Reason: wheezing) fluticasone propion-salmeterol [Wixela Inhub] 500-50 mcg/dose blister with device 1 puff inhalation BEDTIME Eliquis 5 mg tablet 5 mg PO BID Qty: 60 0RF simvastatin 40 mg tablet 40 mg PO DAILY gabapentin 300 mg capsule 300 mg PO TID metoprolol tartrate 25 mg tablet 25 mg PO BID montelukast 10 mg tablet 10 mg PO QPM mirtazapine 7.5 mg tablet 7.5 mg PO BEDTIME albuterol sulfate 2.5 mg /3 mL (0.083 %) solution for nebulization 2.5 mg inhalation Q6H PRN (Reason: wheezing) prednisone 20 mg tablet 40 mg PO DAILY Qty: 8 0RF Rx Instructions: Short prednisone taper: Take 2 tablets (40mg) once daily for three days, then take 1 tablet (20mg) once daily for an additional 2 days. Start on 12/21 and end on 12/25 albuterol sulfate [Ventolin HFA] 90 mcg/actuation HFA aerosol inhaler 2 puff inhalation Q4-6H PRN (Reason: shortness of breath or wheezing) Qty: 8.5 1RF albuterol sulfate 2.5 mg /3 mL (0.083 %) solution for nebulization 2.5 mg inhalation Q4-6H PRN (Reason: shortness of breath or wheezing) Qty: 75 0RF azithromycin 250 mg tablet 250 mg PO DAILY 4 Days Qty: 4 0RF Rx Instructions: start on day 2 of therapy prednisone 50 mg tablet 50 mg PO DAILY Qty: 5 0RF cefuroxime axetil 500 mg tablet 500 mg PO BID Qty: 9 0RF Referrals: Junito Peña MD [Primary Care Provider, Internal Medicine] Print Language: Hungarian
--- NOTE | 2025-02-18 11:25 | ECG_ITS ---
Test Reason : CP Blood Pressure : */* mmHG Vent. Rate : 99 BPM Atrial Rate : * BPM P-R Int : * ms QRS Dur : 84 ms QT Int : 358 ms P-R-T Axes : * 57 49 degrees QTcB Int : 459 ms Atrial fibrillation Nonspecific ST abnormality Abnormal ECG When compared with ECG of 16-Jan-2025 19:56, No significant change was found Referred By: Danii Arevalo Electronically Signed By: MEJIA FALL MD
--- OUTSIDE RECORDS SUMMARY | 2025-02-18 11:32 | XMS_ITS | Data Portability ---
Author Organization [employer], [facility] Address [address] [place] [phone] Care Team Providers Care Malt Loader Name Role Phone HIM CCA OTHER Assessment Encounter Date Assessment Date Assessment LastModified by Organization Details LastModified Time 09/09/2022 09/09/2022 I provided real -time medical direction via phone for this encounter, and was available for additional phone based assistance as needed. I have reviewed and agree with the Assessment and Plan as documented by the Clearance Representative. Patient given the opportunity to ask questions. Advised if develops CP/severe SOB/turning blue/uncontrolle d n/v/d or black/bloody emesis or stool/ AMS/ syncope/ hi fever unresponsive to APAP to call 911- patient / family verbalized understanding of instructions to the medic [email or web address] Not available 09/09/2022 14:13:03 03/20/2024 03/20/2024 I have reviewed and agree with the assessment and plan as documented by the single fold machine operator. I provided real-time medical direction for this encounter and was immediately available to provide additional phone-based assistance as needed. History as noted in EMR and by single fold machine operator. I would add / emphasize: Patient seen for nonproductive cough fatigue and myalgias. AVSS, afebrile and well-appearing. [id number]-[id number] COVID flu and BMP testing without acute [...] specimen 2024 025 [facility], [address] [place] [address], [id number] 5 08:06:54 rapid flu (A+B) 2024 025 [facility], [address] [place] [address], [id number] 5 08:07:57 BMP, serum or plasma [address] [facility] - [facility], [address] [place] [address], [id number] 5 08:08:30 urinalysis, dipstick 2022 023 [email or web address] 0 [facility], [address] [place] [address], [id number] 3 19:49:21 BMP, serum or plasma 2022 023 [email or web address] 0 [facility], [address] [place] [address], [id number] 3 19:49:21 rapid flu (A+B) 2022 023 [email or web address] 0 [facility], [address] [place] [address], [id number] 3 19:49:21 rapid SARS CoV 2 Ag, QL IA, respiratory specimen 2022 023 [email or web address] 0 [facility], [address] [place] [address], [id number] 3 19:49:21 Referral None recorded. Procedures None recorded. Surgeries None recorded. Imaging electrocard iogram 2022 023 [email or web address] 0 [facility], [address] [place] [address], [id number] 3 19:49:21 Medication Orders None recorded. Patient TargetsNo targets recorded. Patient Instructions Encounter Date Encounter Id Patient Instructions Last Modified By Organization Details Last Modified Time 09/09/2022 [id number] orthostatic vitals* [email or web address] Not available 09/09/2022 19:49:21 Reason for Referral None Reported. Results Created Date Observation Date Name Description Value Unit Range Abnormal Flag Note LastModifiedBy Organization Detail LastModifiedTime 09/10/19 23 09/09/2022 BMP, serum or plasm a BUN 25 Not Available [facility] - [facility] [address], [address] [place] [address] 09/09/2022 13:59:06 09/10/19 23 09/09/2022 BMP, serum or plasm a Ca I jaimee 1.19 Not Available [facility] - [facility] [address] [place] [address], [address] [place] [address] 09/09/2022 13:59:06 09/10/19 23 09/09/2022 BMP, serum or plasm a CI- 103 Not Available Main - [facility] [address], [address] [place] [address] 09/09/2022 13:59:06 09/10/19 23 09/09/2022 BMP, serum or plasm a CRE 0.9 Not Available [facility] - [facility] [address], [address] [place] [address] 09/09/2022 13:59:06 09/10/19 23 09/09/2022 BMP, serum or plasm a GLU 116 Not Available [facility] - [facility] [address], [address] [place] [address] 09/09/2022 13:59:06 09/10/19 23 09/09/2022 BMP, serum or plasm a K+ 4.3 Not Available [facility] - [facility] [address], [address] [place] [address] 09/09/2022 13:59:06 09/10/19 23 09/09/2022 BMP, serum or plasm a Na+ 137 Not Available [facility] - [facility] [address], [address] [place] [address] 09/09/2022 13:59:06 09/10/19 23 09/09/2022 BMP, serum or plasm a tCO2 23 Not Available [facility] - [facility] [address], [address] [place] [address] 09/09/2022 13:59:06 09/10/19 23 09/09/2022 urina lysis , dipst ick Leukocytes neg Not Available [facility] - [facility] [address] [place] [address], [address] [place] [address] 09/09/2022 13:59:03 09/10/19 23 09/09/2022 urina lysis , dipst ick Nitrite negati ve Not Available Main - [facility] ed [address] [place] [address], [id number] 09/09/2022 13:59:03 09/10/19 23 09/09/2022 urina lysis , dipst ick Urobilinogen neg Not Available [facility] - [facility] [address] [place] [address], [id number] 09/09/2022 13:59:03 09/10/19 23 09/09/2022 urina lysis , dipst ick Protein neg Not Available [facility] - [facility] [address], [id number] 09/09/2022 13:59:03 09/10/19 23 09/09/2022 urina lysis , dipst ick pH 5 Not Available [facility] - [facility] [address], [id number] 09/09/2022 13:59:03 09/10/19 23 09/09/2022 urina lysis , dipst ick Blood neg Not Available Main - [facility] [address], [id number] 09/09/2022 13:59:03 09/10/19 23 09/09/2022 urina lysis , dipst ick Specific Caroline 1.005 Not Available [facility] - [facility] [address] [place] [address], [id number] 09/09/2022 13:59:03 09/10/19 23 09/09/2022 urina lysis , dipst ick Ketone neg Not Available [facility] - [facility] [address], [id number] 09/09/2022 13:59:03 09/10/19 23 09/09/2022 urina lysis , dipst ick Bilirubin neg Not Available [facility] - [facility] [address] [place] [address], [id number] 09/09/2022 13:59:03 09/10/19 23 09/09/2022 urina lysis , dipst ick Glucose neg Not Available [facility] - [facility] [address], [id number] 09/09/2022 13:59:03 09/10/19 23 09/09/2022 urina lysis , dipst ick Appearance clear Not Available [facility] - [facility] [address] [place] [address], [id number] 09/09/2022 13:59:03 09/10/19 23 09/09/2022 urina lysis , dipst ick Color yellow Not Available [facility] - [facility] [address] [place] [address], [id number] 09/09/2022 13:59:03 09/10/19 23 09/09/2022 rapid SARS CoV 2 Ag, QL IA, respi rator y speci men rapid SARS CoV 2 Ag, QL IA, respiratory specimen negati ve Not Available [facility] [address] [place] [address], [id number] 09/09/2022 13:59:22 09/10/19 23 09/09/2022 rapid flu (A+B) Flu negati ve Not Available [facility] [address] [place] [address], [id number] 09/09/2022 13:59:19 09/10/1909/09/2022 elect fernando escalante am No observ ation record ed. [email or web address] [facility] [address] [place] [address], [id number] 09/09/2022 19:49:24 Result Notes None recorded. Medical [...] Recorded Heart rate Body height Oxygen saturation Body weight Body temperature Respiratory rate Systolic And Diastolic Provider Name and Address Organization Details Last Updated DateTime 5 96 /min 170.18 cm 96 % 77146.6 4 g 98 [degF] 14 /min 111/65 mm[Hg] Not Available [facility] - production 5 13:05:22 Date Recorded Heart rate Body temperature Body height Oxygen saturation Body weight Respiratory rate Systolic And Diastolic Provider Name and Address Organization Details Last Updated DateTime 3 96 /min 96.8 [degF] 170.18 cm 99 % 67336.6 4 g 16 /min 145/89 mm[Hg] Not Available [facility] - production 3 20:08:34 Date Recorded Body height Provider Name an d Address Organization Details Last Updated DateTime 09/09/2022 170.18 cm Camilo Cruz [address] [place] [address],[address], [place], [phone], [place] - [employer] 09/09/2022 13:59:55 Date Recorded Body temperature Oxygen saturation Heart rate Respiratory rate Systolic And Diastolic Provider Name and Address Organization Details Last Updated DateTime 3 98.1 [degF] 98 % 71 /min 16 /min 158/80 mm[Hg] Not Available [facility] - production 3 13:40:31 Social History None recorded. Functional Status None recorded. Mental Status None recorded. Family History Nothing Reported. Medical History No medical history recorded. Past Encounters Encounter ID Performer Location Encounter Start Date Encounter Closed Date Diagnosis/Indication Diagnosis SNOMED-CT Code Diagnosis ICD10 Code Diagnosis IMO Codes Diagnosis Note [id number] Flaquito Perdue MD [facility] [address] [place] [phone] 09/06/2022 20:08:20 09/07/2022 12:39:08 Nasal congestion 93452153 R09.81 Patient reports continued nasal congestion . He has been started on azelastine . No fevers, chills, purulent drainage, or significan t pain to suggest bacterial sinusitis. Advised he continue his outpatient regimen as prescribed by his PCP. Change of dressing 35257 003 Z48.00 Patient with a recent lawnmower injury to fingers. Dressing fell off at home. He is scheduled to see the orthopedic surgeon tomorrow. Finger wound re-dressed with Xeroform and sterile gauze. [id number] Luz Maria Rizo MD [facility] [address] [place] [phone] 09/09/2022 13:40:08 09/09/2022 21:46:46 Malaise and fatigue 712881119 R53.83 advised unsure of etiology of fatigue- further w/u beyond scope of [facility]- advised of need to f/u with pcp tomorrow/ rest increase fluids as has mild elevation of BUN- not orthostati c- reviewed red flags [id number] John Carney MD [facility] [address] [place] [phone] 03/20/2024 13:05:20 03/22/2024 18:40:00 Cough 24302924 R05.9 Health Concerns Section Related Observation LastModified by Organization Detai ls LastModified Time None Recorded Concern Status LastModified by Organization Details LastModified Time None Recorded Advance Directives Directive None Recorded Payers Insurance Date Sequence Insurance Name Policy Number Policy Muñiz Covered Member ID Muñiz Member ID Guarantor Name 03/20/2024 1 [facility] - DOS ON OR AFTER 2022 - DUAL ELIGIBLE - LONG TERM OPTIONS AND ONE CARE (MEDICARE REPLACEMENT/ADV ANTAGE - HMO) Miguelito Edmondson [id number] Miguelito Edmondson Notes Date Note Type Note [...] ...................... ...................... ...................... ...................... ...................... ...................... ......... Clearance Representative Note From Portillo López: Mobile health call for patient complaining of stuffy nose and separately concerned about wound care for a few finger tips . Arrived to home to find patient with family in living room. Pt presented in no obvious distress. Pt had limited Kyrgyz so his daughter provided translation for assessment. Pt states that he has had stuffy nose for which he was prescribed azelastine nasal spray and has been trialing flonase as well with some improvement. 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 ......... Disposition: Fulfilled Flaquito Perdue MD [address] [facility],[address], [place], [address], [facility] - [employer] [facility] 09/06/2022 22:57:04 09/09/2022 text/html ROS as noted in the HPI CRC Nursing Assessment: Reason For Request: Daughter reporting pt baseline seems the worst she has ever seen him>[facility] attendant reporting weakness and lethargy>losing weight in the last few weeks. hot and cold sweats>issues with nose because he was having a hard time breathing> Chief Complaints: Weakness/Lethargy, Fever/Chills PMH: COPD/Asthma, Hypertension Allergies: No Known Comments: Daughter received call from LAY OUT TECHNICIAN that member is experiencing chills and body aches today with weakness. Unknown fever. Increased weight loss and decreased appetite over the last 2 weeks. 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 Prescribed Amoxicillin and Oxycodone. Also reported [...] tired................. ...................... ...................... ...................... ...................... ...................... ............... Clearance Representative Note From Benjamin Mckenzie: Dispatched to the [...] Disposition: Fulfilled Luz Maria Rizo MD [address] [facility],[address], [place], [address], JULIETH BURGOS DAVE 09/09/2022 19:51:22 03/20/2024 text/html HPI: Member's daughter, [...] CRC Nurse Triage Notes (Phill Steiner - GAIL): Chief Complaints: Cough, Fever/chills, Headache, Weakness, Dehydration PMH: COPD/Asthma, Hypertension PMH Reviewed at 03/20/2024 11:33 Allergies Reviewed at 03/20/2024 - 11:33 Comments: HPI reviewed by this RN, no further information needed to process visit -Vj Steiner RN Clearance Representative Organization Information for [employer] Legal Name: [facility] Address: [address] [place] [id number], Calciner Operator: Tono Landrum MD CLIA No.: [id number] Clearance Representative POC Test Results from [facility] - ALS Rapid COVID antigen (12:55:43) COVID: - Rapid influenza antigen (12:55:44) Flu: - epoc (12:55:54) pH: 7.39 pH units pCO2: 39.9 mmHg pO2: 26.5 mmHg Na: 136 mmol/L K: 4.6 mmol/L iCa: 1.12 mmol/L Cl: 107 mmol/L TCO2: 23.6 mEq/L Hct: 43 % Hb: 14.7 g/dL Glu: 108 mg/dL Lac: 1.8 mmol/L Cr: 1.1 mg/dL BUN: 23 mg/dL A ...................... ...................... ...................... ...................... ...................... ...................... ......... Clearance Representative Note From Gallo Ba: This visit is [...] and flu testing are both negative. Unremarkable [id number] lab are uploaded. I provided reassurance to [...] ...................... ...................... ...................... ...................... ...................... ...................... ......... [facility] Consulted: John Carney ...................... ...................... ...................... ...................... ...................... ...................... ......... Disposition: Fulfilled John Carney MD [address] [facility],[address], [place], [address], JULIETH - DAVE BURGOS 03/22/2024 06:42:09
[2025-02-18 12:03] VITALS: BP 122/81; PULSE 86; RESP 20; TEMP 36.7; O2SAT 95
[2025-02-18 12:06] LABS: MANUAL DIFF FLAG NO
[2025-02-18 12:08] LABS: Hematocrit 36.7 % (42.0-52.0); Hemoglobin 11.7 g/dl (14.0-18.0); Imm Gran Abs Auto 0.02 X10*3/uL (0.00-0.03); Imm Gran Pct Auto 0.3 % (0.0-0.4); Lymphocytes Absolute Auto 0.9 X10*3/uL (1.2-4.9); Mean Corpuscular HGB Conc 31.9 g/dl (31.0-36.0); Mean Corpuscular Hemoglobin 28.0 pg (27.0-33.0); Mean Corpuscular Volume 87.8 fL (80.0-98.0); NRBC Abs Auto 0.000 X10*3/uL (0.0-0.012); NRBC Pct Auto 0.0 /100WBC (0.0-0.2); Platelet Count 216 X10*3/uL (160-400); Red Blood Count 4.18 X10*6/uL (4.60-5.80); White Blood Count 6.8 X10*3/uL (4.8-10.8)
[2025-02-18 12:25] LABS: Alanine Aminotransferase 16 U/L (0-40); Albumin Level 4.2 g/dL (3.5-5.0); Alkaline Phosphatase 77 U/L (39-117); Anion Gap 13 (12-20); Aspartate Amino Transferase 26 U/L (5-37); Blood Urea Nitrogen 16 mg/dL (9-16); Calcium 9.0 mg/dL (8.4-10.2); Carbon Dioxide 23 mmol/L (22-29); Chloride 110 mmol/L (96-108); Creatinine Clr Calc Pharmacy 63.1; Estimated Glomerular Filt Rate > 60; Potassium 4.2 mmol/L (3.3-5.1); Sodium 142 mmol/L (135-145); Total Protein 6.6 g/dL (6.5-8.0)
[2025-02-18 12:28] VITALS: PULSE 91; RESP 26; O2SAT 96
[2025-02-18] MEDS: Albuterol Sulfate 5 MG, Albuterol/Iprat 2.5/0.5MG 3 ML 3 ML INHALE (12:28)
[2025-02-18 12:29] LABS: Appearance Urine Clear; Glucose Urine UA Negative (Negative); PH 7.5 (5.0-9.0); Specific Gravity - Urine <= 1.005 (1.005-1.025)
[2025-02-18] MEDS: Magnesium Sulfate/H2O 2 GM/50 ML PIGGYBACK IV (12:31)
[2025-02-18 12:32] LABS: Troponin-I High Sensitivity 14.5 ng/L (<3.5-35.0)
[2025-02-18 12:49] LABS: Lipase 31 U/L (8-78)
[2025-02-18 12:55] LABS: Resp Syncy Virus RNA Qual PCR NEGATIVE (Negative); SARS COV2 PCR INHOUSE NEGATIVE (Negative)
[2025-02-18 14:37] VITALS: BP 128/84; PULSE 104; RESP 18; O2SAT 95
[2025-02-18 14:41] VITALS: BP 128/84; PULSE 104; RESP 18; TEMP 36.6; O2SAT 95
== END 2025-02-18 14:41 | disposition home or self-care (01) ==
PROVIDERS: Nurse Practitioner; Nurse Practitioner Family; Emergency Provider Emergency Medicine Emergency Medical Services; PCP Family Medicine
DX: J44.1 Chronic obstructive pulmonary disease with (acute) exacerbation (principal); R10.32 Left lower quadrant pain; R06.02 Shortness of breath; R05.9 Cough, unspecified; Z03.818 Encounter for observation for suspected exposure to other biological agents ruled out; I10 Essential (primary) hypertension; I48.0 Paroxysmal atrial fibrillation; Z87.891 Personal history of nicotine dependence; Z79.01 Long term (current) use of anticoagulants; Z79.899 Other long term (current) drug therapy
CPT/HCPCS: 71046; 74176; 80053; 81003; 83690; 84484; 85025; 87637; 93005; 94640; 96365; 96375; 99284; 99285; J2919; J3475

== ENCOUNTER → 2025-02-18 11:22 | Outpatient (BNV) | payer OTHER, SELFPAY | PROVIDERS: Emergency Provider Emergency Medicine Emergency Medical Services; PCP Family Medicine; Visit Provider Radiology Vascular & Interventional Radiology | DX: K57.30 Diverticulosis of large intestine without perforation or abscess without bleeding (principal); K44.9 Diaphragmatic hernia without obstruction or gangrene; J98.09 Other diseases of bronchus, not elsewhere classified | CPT/HCPCS: 71046; 74176 ==

== ENCOUNTER → 2025-02-18 11:25 | Outpatient (BNV) | payer OTHER, SELFPAY | PROVIDERS: Emergency Provider Emergency Medicine Emergency Medical Services; PCP Family Medicine; Visit Provider Internal Medicine Cardiovascular Disease | DX: I48.91 Unspecified atrial fibrillation (principal) | CPT/HCPCS: 93010 ==